=== PATIENT | female | born 1970 | race Hispanic/Latino ===

== ENCOUNTER 2019-10-02 12:54 | Emergency (ER) | payer OTHER ==
--- NOTE | 2019-10-02 15:11 | RAD REPORT ---
EXAM DESCRIPTION: RAD - Chest Single View - 10/02/2019 2:48 pm CLINICAL HISTORY: COUGH COMPARISON: None TECHNIQUE: AP portable chest image was obtained 10/02/2019 2:48 pm . FINDINGS: Lungs are clear. Heart and vasculature are normal. No measurable pleural effusion and no p neumothorax. No acute bony abnormality seen. No acute aortic findings suspected. IMPRESSION: No acute cardiopulmonary process.
[2019-10-02 15:43] LABS: Urine Blood TRACE (NEG); Urine Glucose NEGATIVE (NEG); Urine Protein TRACE (NEG); Urine pH 8.5 (5.0-7.0)
--- NOTE | 2019-10-02 16:10 | ER ---
Nurse's Notes [facility] Name: Bianka Montelongo Age: 49 yrs Sex: Female : 1970 Arrival Date: 10/02/2019 Time: 12:56 Bed 28 Private MD: Diagnosis: Urinary tract infection, site not specified;Viral Syndrome Presentation: 10/01 13:14 Chief complaint: Patient states: headache, body aches, cough for 2-3 days, also reports em abd pain N/V, was checked for covid 1 month ago, denies. Coronavirus screen: Patient reports a cough. Patient denies shortness of breath or difficulty breathing. Patient denies measured and/or subjective temperature greater than 100.4F prior to today's visit. Patient denies travel on a cruise ship or to a country the [facility] currently lists as an affected area. Patient denies contact with known and/or suspected case of COVID-19. Ebola Screen: Patient negative for fever greater than or equal to 101.5 degrees Fahrenheit, and additional compatible Ebola Virus Disease symptoms Patient denies exposure to infectious person. Patient denies travel to an Ebola-affected area in the 21 days before illness onset. No symptoms or risks identified at this time. Initial Sepsis Screen: Does the patient meet any 2 criteria? HR > 90 bpm. No. Patient's initial sepsis screen is negative. Does the patient have a suspected source of infection? Yes: Productive cough/pneumonia. Risk Assessment: Do you want to hurt yourself or someone else? Patient reports no desire to harm self or others. Onset of symptoms was September 29, 2019. 13:14 Method Of Arrival: Ambulatory em 13:14 Acuity: AMY 3 em Triage Assessment: 14:00 General: Appears in no apparent distress. uncomfortable, Behavior is calm, cooperative. ls4 Pain: Complains of pain in forehead, right femoral area, left femoral area and suprapubic area Pain currently is 5 out of 10 on a pain scale. Quality of pain is described as aching, crampy. GI: No signs and/or symptoms were reported involving the gastrointestinal system. : Reports pain in suprapubic area. Derm: No deficits noted. No signs and/or symptoms reported regarding the dermatologic system. Musculoskeletal: No deficits noted. No signs and/or symptoms reported regarding the musculoskeletal system. 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 - Social history:: Smoking status: Patient denies any tobacco usage or history of. - Family history:: not pertinent. - Hospitalizations: : No recent hospitalization is reported. Screenin:49 Abuse screen: Denies threats or abuse. Denies injuries from another. Nutritional ls4 screening: No deficits noted. Tuberculosis screening: No symptoms or risk factors identified. Fall Risk None identified. Assessment: 15:28 Reassessment: Called lab regarding urine micro sample. catechist placed me on hold. when ls4 she returned she stated that the urine was in the refrigerator because the time on the urine was 0220. After speaking to pumping supervisor, it was agreed that MT did not use time and they were able to use the sample for the urine micro. 15:49 Reassessment: Patient appears in no apparent distress at this time. Patient and/or ls4 family updated on plan of care and expected duration. Pain level reassessed. Patient is alert, oriented x 3, equal unlabored respirations, skin warm/dry/pink. 16:27 Reassessment: pt ambulated to bathroom for another urine sample. ks7 16:36 GI: Bowel sounds present X 4 quads. ks7 16:36 GI: Abdomen is tender to palpation in left lower quadrant. ks7 Vital Signs: 13:14 BP 152 / 94; Pulse 100; Resp 20; Temp 98.6(O); Pulse Ox 99% on R/A; Weight 72.57 kg; em Height 5 ft. 4 in. (162.56 cm); Pain 3/10; 15:48 BP 143 / 87; Pulse 86; Resp 16; Temp 98.4(O); Pulse Ox 99% on R/A; Pain 5/10; ls4 16:28 BP 152 / 80; Pulse 72; Resp 18; Temp 97.8(TE); Pulse Ox 100% on R/A; Pain 6/10; ks7 13:14 Body Mass Index 27.46 (72.57 kg, 162.56 cm) em ED Course: 12:56 Patient arrived in ED. ag5 13:18 Triage completed. em 13:19 Arm band placed on. EKG completed in triage. Results shown to MD. 14:14 Surjit Hu MD is Attending Physician. rn 14:15 Milvia Byrd, RN is Primary Nurse. ls4 14:28 Urine Microscopic Only Sent. pa 14:48 XRAY Chest (1 view) In Process Unspecified. EDMS 16:24 Mel Olivares, BRINDA is Primary Nurse. ks7 16:28 Patient has correct armband on for positive identification. Bed in low position. Call ks7 light in reach. Side rails up X2. 16:28 No provider procedures requiring assistance completed. Patient did not have IV access ks7 during this emergency room visit. 16:37 Urine Culture Sent. ks7 Administered Medications: No medications were administered Outcome: 16:09 Discharge ordered by MD. rn 16:35 Discharged to home ambulatory. ks7 16:35 Condition: stable 16:35 Discharge instructions given to patient, Instructed on discharge instructions, medication usage, Demonstrated understanding of instructions, medications, Prescriptions given X 1. 16:37 Patient left the ED. ks7 Signatures: Dispatcher [employer] [facility] Cedric Garcia, RN RN Surjit Hu MD MD rn [facility] Milvia Byrd, BRINDA RN [facility] [place] 5 Mel Olivares, BRINDA RN ks7
--- NOTE | 2019-10-02 16:10 | EDPHYS ---
Physician Documentation [facility] Name: Bianka Montelongo Age: 49 yrs Sex: Female : 1970 Arrival Date: 10/02/2019 Time: 12:56 Bed 28 Private MD: ED Physician Surjit Hu HPI: 10/01 15:37 This 49 yrs old Female presents to ER via Ambulatory with complaints of rn Abdominal Pain, Headache, Cough. 15:38 Reports 2-3 days of headache, cough, muscle aches, dysuria, lower abd cramping. NO rn known sick contacts. Neg for COVID 1 month ago. No sob or chest pain.. Onset: The symptoms/episode began/occurred 3 day(s) ago. Severity of symptoms: At their worst the symptoms were mild in the emergency department the symptoms are unchanged. The patient has not experienced similar symptoms in the past. The patient has not recently seen a physician. [employer]ON: 13:19 LMP N/A - Post-menopause em Historical: - Allergies: 13:19 No Known Allergies; em - PMHx: 13:19 Hypertension; season allergies; breast cancer; em - PSHx: 13:19 ovary removal, unknown which side; em - Immunization history:: Adult Immunizations up to date. - Social history:: Smoking status: Patient denies any tobacco usage or history of. - Family history:: not pertinent. - Hospitalizations: : No recent hospitalization is reported. ROS: 15:38 Constitutional: Negative for fever, chills, and weight loss, Eyes: Negative for injury, rn pain, redness, and discharge, Neck: Negative for injury, pain, and swelling, Cardiovascular: Negative for chest pain, palpitations, and edema, Respiratory: Negative for wheezing, and pleuritic chest pain, Abdomen/GI: Negative for vomiting, and constipation, MS/Extremity: Negative for injury and deformity, Skin: Negative for injury, rash, and discoloration, Neuro: Negative for numbness, tingling, and seizure. Exam: 15:38 Constitutional: This is a well developed, well nourished patient who is awake, alert, rn and in no acute distress. Ambulatory to room without difficulty. Head/Face: Normocephalic, atraumatic. Eyes: Pupils equal round and reactive to light, extra-ocular motions intact. Lids and lashes normal. Conjunctiva and sclera are non-icteric and not injected. Cornea within normal limits. Periorbital areas with no swelling, redness, or edema. Neck: Trachea midline, no thyromegaly or masses palpated, and no cervical lymphadenopathy. Supple, full range of motion without nuchal rigidity, or vertebral point tenderness. No Meningismus. Cardiovascular: Regular rate and rhythm. No pulse deficits. Respiratory: No increased work of breathing, no retractions or nasal flaring. Abdomen/GI: soft, non-tender MS/ Extremity: Pulses equal, no cyanosis. Neurovascular intact. Full, normal range of motion. Equal circumference. Neuro: Awake and alert, GCS 15, oriented to person, place, time, and situation. Cranial nerves II-XII grossly intact. Motor strength 5/5 in all extremities. Sensory grossly intact. Vital Signs: 13:14 BP 152 / 94; Pulse 100; Resp 20; Temp 98.6(O); Pulse Ox 99% on R/A; Weight 72.57 kg; em Height 5 ft. 4 in. (162.56 cm); Pain 3/10; 15:48 BP 143 / 87; Pulse 86; Resp 16; Temp 98.4(O); Pulse Ox 99% on R/A; Pain 5/10; ls4 16:28 BP 152 / 80; Pulse 72; Resp 18; Temp 97.8(TE); Pulse Ox 100% on R/A; Pain 6/10; ks7 13:14 Body Mass Index 27.46 (72.57 kg, 162.56 cm) em MDM: 14:14 Patient medically screened. rn 16:08 Differential Diagnosis COVID, viral syndrome, UTI. Data reviewed: vital signs, nurses rn notes, lab test result(s), radiologic studies, plain films, and as a result, I will discharge patient. Counseling: I had a detailed discussion with the patient and/or guardian regarding: the historical points, exam findings, and any diagnostic results supporting the discharge/admit diagnosis, lab results, radiology results, the need for outpatient follow up, to return to the emergency department if symptoms worsen or persist or if there are any questions or concerns that arise at home. Special discussion: I discussed with the patient/guardian in detail that at this point there is no indication for admission to the hospital. It is understood, however, that if the symptoms persist or worsen the patient needs to return immediately for re-evaluation. ED course: UA shows UTI, CXR clear, COVID sent, will dc home with abx, and return precautions.. 10/01 14:20 Order name: COVID-19 rn 10/01 14:20 Order name: Urine Microscopic Only rn 10/01 14:20 Order name: XRAY Chest (1 view); Complete Time: 15:27 rn 10/01 14:20 Order name: Urine Dipstick-Ancillary (obtain specimen); Complete Time: 14:28 rn 10/01 14:37 Order name: Urine Dipstick--Ancillary (enter results); Complete Time: 16:07 bd 10/01 16:36 Order name: Urine Culture EDMS Administered Medications: No medications were administered Disposition: 10/02/19 16:09 Discharged to Home. Impression: Urinary tract infection, site not specified, Viral Syndrome. - Condition is Stable. - Discharge Instructions: Urinary Tract Infection, Adult. - Prescriptions for Macrobid 100 mg Oral Capsule - take 1 capsule by ORAL route every 12 hours for 7 days; 14 capsule. - Medication Reconciliation Form, Thank You Letter, Antibiotic Education, Prescription Opioid Use form. - Follow up: Private Physician; When: As needed; Reason: Recheck today's complaints, Re-evaluation by your physician. - Problem is new. - Symptoms have improved. Addendum: 10/04/2019 18:32 Addendum: Notified patient of positive COVID-19 test result 10/04/19 at 1833. No sob. r n Return precautions explained and understood. . Signatures: Dispatcher [employer] EDCedric Alcala RN RN em Nieto, Roman, MD MD rn Songcuan, Kathleen, RN RN ks7 Corrections: (The following items were deleted from the chart) 10/01 16:37 16:09 10/02/2019 16:09 Discharged to Home. Impression: Urinary tract infection, site ks7 not specified; Viral Syndrome. Condition is Stable. Forms are Medication Reconciliation Form, Thank You Letter, Antibiotic Education, Prescription Opioid Use. Follow up: Private Physician; When: As needed; Reason: Recheck today's complaints, Re-evaluation by your physician. Problem is new. Symptoms have improved. rn
[2019-10-02 16:35] LABS: Urine Bacteria <20 /HPF (<20); Urine Culture Reflex Order REFLEXED; Urine Mucus 2+ /HPF (NONE SEEN); Urine RBC <5 /HPF (NONE SEEN)
--- OUTSIDE RECORDS SUMMARY | 2019-10-02 16:35 | XMS REPORT | Summary of Care ---
:1970 Author Organization [facility] Address [address] [place] [address] Care Team Providers Name Role Phone Pcp, Does Not Have A Primary Care Provider Reason for Visit Reason Comments Results Encounter Details Date Type Department Care Team Description 07/12/2019 Telephone ACCESS CENTER Chel Taylor FNP Results [address] [address] [address] [place] [address] 15 [phone] Allergies No Known Allergiesdocumented as of this encounter (statuses as of 07/13/2019) Medications Medication Sig Dispensed Refills Start Date End Date Status citalopram 20 mg TAKE 1 2 (ONE 0 03/13/2019 Active tablet HALF) TABLET BY MOUTH ONCE DAILY FOR 7 DAYS THEN 1 TABLET DAILY THEREAFTER Blood Pressure Use as directed 1 Kit 0 05/22/2019 Active Monitor KitIndications: Essential hypertension naproxen 500 mg Take 1 tablet by 30 tablet 0 05/27/2019 Active tabletIndications: mouth 2 (two) Acute maxillary times daily with sinusitis, meals. recurrence not specified Cetirizine 10 mg Take by mouth. 0 Active capsuleIndications: Allergic sinusitis enalapril 10 mg Take by mouth 0 Active tablet daily. maalox:diphenhydrAMI Take 10 mL by 50 mL 0 07/10/2019 05/0 04/2019 Active NE:lidocaine 2 % mouth as needed viscous (Sore throat) for 1:1:1Indications: up to 5 days. Sore throat fluticasone (FLONASE Use 2 Sprays in 10 g 0 07/10/2019 Active SENSIMIST) 27.5 each nostril daily mcg/actuation nasal for 14 days. sprayIndications: Allergic sinusitis montelukast 10 mg Take 1 tablet by 30 tablet 0 07/10/201907/14 Active tabletIndications: mouth daily for 30 Allergic sinusitis days. documented as of this encounter (statuses as of 07/13/2019) Active Problems Patient Care Coordination Note Hypertension (High Blood Pressure) Plan of Care My Hypertension Goals are the following: ? Strive for a normal blood pressure of less than 140/90 ? Cholesterol- LDL ( Bad cholesterol )- less than 130 (if I have diabetes and heart disease goal is less than 70) ? Total Cholesterol- less than 200 ? Lose weight if overweight or obese and follow the Weight Loss Care Plan ? Stop smoking and avoid second hand smo ke My Hypertension Care Plan includes the f ollowing: ? Check and record blood pressure at [facility] once a week and write results on blood pressure log ? Exercise at least 30 minutes a day 5 d ays a week. This can be in three 10 minute intervals ? Maintain a healthy weight ? Follow a DASH diet (Dietary Approaches to Stop Hypertension) o Eat a diet rich in fruits, vegetables, and low fat dairy products and low in saturated and total fat o Reduce dietary sodium to below 1500mg per day o Limit alcohol to two drinks per day fo r most men and one drink per day for most women and translational specialist weight men ? If I am a smoker, stop smoking ? Manage stress by identifying three way s to reduce stress ? [employer] ([email or web address]) is an online tool that will allow me to review lab results and portions of my health record, and to communicate with healthcare providers as needed. 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 Other sign and symptom in breast 06/28/2007 Overview: Breast pain x 1 yr. 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 Ago on SBE (Thinks mass is s grady size as last yr.) Breast cancer Migraine Hypertension documented as of this encounter (statuses as of 07/13/2019) Immunizations Name Administration Dates Next Due HEP B, Adult Dosage 03/25/2017, 02/25/2017 Influenza Virus Vaccine Quad .5 mL IM 6+ 12/23/2018, 019 MO Influenza Virus Vaccine Quad IM 3+ YRS 01/06/2017, 6, 03/01/2015 Tdap 04/25/2018 documented as of this encounter 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 Tobacco Use Types Packs/Day Years Used Date Never Smoker Smokeless Tobacco: Never Used Alcohol Use Drinks/Week oz/Week Comments No Sex Assigned at Date Recorded Not on file Job Start Date Occupation Industry Not on file Not on file Not on file Travel History Travel Start Travel End No recent travel history available. COVID-19 Exposure Response Date Recorded In the last month, have you been in contact with No / Unsure 07/10/2019 1:14 PM CDT someone who was confirmed or suspected to have Coronavirus / COVID-19? documented as of this encounter Last Filed Vital Signs Not on filedocumented in this encounter Plan of Treatment Date Type Specialty Care Team Description 08/23/2019 Office Visit Orthopedic Surgery Yo Whitman MD [address] [place] [address] 10/02/2019 Appointment Radiology Bianka Palomino , US[employer] [address] [address] Health Maintenance Due Date Last Done Comments Breast Cancer Screening 02/24/2018 02/24/2017 (Previously (MAMMOGRAM) completed), 04/01/2016 (Previously completed) PNEUMOCOCCAL 0-64 YEARS 02/08/2020 Postpone d from COMBINED SERIES (1 of 3 - 1975 (Refused) PCV13) Zoster Recombinant Vaccine 05/02/2020 Postp oned from ([employer]) (1 of 2) 2019 ( Insurance / Financial) PAP SMEAR 10/14/2021 10/14/2018, 01/06/2017 (Declined), 06/07/2013, Additional history exists COLONOSCOPY 12/02/2023 12/01/2013 DTaP,Tdap,and Td Vaccines 04/25/2028 04/25/2018 (2 - Td) INFLUENZA VACCINE Completed 12/23/2018, 04/25/2018, 01/06/2017, Additional history exists documented as of this encounter Results Not on filedocumented in this encounter Insurance Payer Benefit Plan / Group Subscriber ID Effective Dates Phone Address Type CEASAR MCDONOUGH II [id number] 2019-Present HMO /PPO/POS documented as of this encounter
--- OUTSIDE RECORDS SUMMARY | 2019-10-02 16:35 | XMS REPORT | Summary of Care ---
:1970 Author Organization [facility] Address [address] [place] [id number] Care Team Providers Name Role Phone Pcp, Does Not Have A Primary Care Provider Reason for Visit Reason Comments Sore Throat All symptoms started 4 days ago. Pt states her throat onl;y hurts on her left side. Ear Pain Fatigue Headache Encounter Details Date Type Department Care Team Description 07/10/2019 Urgent Care [facility] Radha Malone MD [facility] [address] [place] [address] Sore throat (Primary Dx); [place] [id number], Acute Care Clinic Allergic sinusitis [address] [place] [address] [phone] Allergies No Known Allergiesdocumented as of this encounter (statuses as of 07/10/2019) Medications Medication Sig Dispensed Refills Start Date End Date Status citalopram 20 mg TAKE 1 2 (ONE 0 03/13/2019 Active tablet HALF) TABLET BY MOUTH ONCE DAILY FOR 7 DAYS THEN 1 TABLET DAILY THEREAFTER Blood Pressure Use as directed 1 Kit 0 05/22/2019 Active Monitor KitIndications: Essential hypertension naproxen 500 mg Take 1 tablet 30 tablet 0 05/27/2019 Active tabletIndications by mouth 2 : Acute maxillary (two) times sinusitis, daily with recurrence not meals. specified Cetirizine 10 mg Take by mouth. 0 Active capsuleIndication s: Allergic sinusitis enalapril 10 mg Take by mouth 0 Active tablet daily. maalox:diphenhydr Take 10 mL by 50 mL 0 07/10/2019 Active AMINE:lidocaine 2 mouth as needed 0 % viscous (Sore throat) 1:1:1Indications: for up to 5 Sore throat days. fluticasone Use 2 Sprays in 10 g 0 07/10/2019 A ctive (FLONASE each nostril 0 SENSIMIST) 27.5 daily for 14 mcg/actuation days. nasal sprayIndications: Allergic sinusitis montelukast 10 mg Take 1 tablet 30 tablet 0 07/10/2019 Active tabletIndications by mouth daily 0 : Allergic for 30 days. sinusitis montelukast 10 mg Take 10 mg by 0 04/08/2019 02 Discontinued tablet mouth daily. 0 (Reorde r) azithromycin 250 Take 1 tablet 1 Package 0 05/27/2019 07/10/19 2 Discontinued mg by mouth daily. 0 (The rapy tabletIndications Take 500 mg day completed) : Acute maxillary 1, then 250 mg sinusitis, days 2 to 5. recurrence not specified brompheniramine-p Take 10 mL by 118 mL 0 05/27/2019 Discontinued seudoephedrine-DM mouth 4 (four) 0 (Therapy (BROMFED DM) times daily as co mpleted) 2-30-10 mg/5 mL needed for syrupIndications: Congestion/Waldemar Acute maxillary rgies. sinusitis, recurrence not specified documented as of this encounter (statuses as of 07/10/2019) Active Problems Patient Care Coordination Note Hypertension [...] ? Check and record blood pressure at [facility] once a week and write results on [...] drink per day for most women and compounder weight men ? If I am a smoker, stop smoking ? Manage stress by identifying three way s to reduce stress ? [employer] ([email or web address]) is an online tool that will allow me to review lab results and portions of my health record, and to communicate with healthcare providers as needed. If I do not have a [employer] account, I will discuss this wi th [...] as of this encounter (statuses as of 07/10/2019) Immunizations Name Administration Dates Next Due HEP [...] of this encounter Last Filed Vital Signs Vital Sign Reading Time Taken Comments Blood Pressure 127/89 07/10/2019 1:19 PM CDT Pulse 68 07/10/2019 1:19 PM CDT Temperature 36.7 C (98.1 F) 07/10/2019 1:19 PM CDT Respiratory Rate 18 07/10/2019 1:19 PM CDT Oxygen Saturation 98% 07/10/2019 1:19 PM CDT Inhaled Oxygen Concentration - - Weight 71.7 kg (158 lb) 07/10/2019 1:19 PM CDT Height 149.9 cm (4' 11") 07/10/2019 1:19 PM CDT Body Mass Index 31.91 07/10/2019 1:19 PM CDT documented in this encounter Patient Instructions Patient InstructionsKetty Mendez FNP - 07/10/2019 2:00 PM CDT Patient Education Cuidados personales para el dolor de garganta El dolor de garganta aparece por muchas razones, por ejemplo, resfriados, alergias, humo del cigarrillo, contaminacin del aire e infecciones causadas por virus o bacterias. En cualquier henry, la garganta se enrojece y duele. El objetivo del cuidado personal es reducir las molestias y permitir que lagarganta se cure. Mantenga hmeda melgar garganta y alivie melgar dolor Estos son algunos consejos: Pruebe bebiendo un sorbo de agua apenas se despierte. Mantenga melgar garganta hmeda bebiendo seis o ms vasos de lquidos transparentes por da. Utilice un humidificador de aire fro en melgar dormitorio sharona la noche. Evite exponerse al humo de cigarrillos. Controle el ndice de la calidad del aire si la contaminacin del aire le provoca dolor de garganta. Intente limitar el tiempo al aire sandy los hyde con altos niveles de contaminacin. Chupe pastillas para la garganta o la tos, caramelos duros, trozos de hielo o barras de jugo de frutas congelado. Consuma las versiones sin azcar si melgar dieta o alguna afeccin as lo requiere. Hgase grgaras para aliviar la irritacin Hacer grgaras cada hora o dos horas puede aliviar la irritacin. Pruebe con alguna de estas soluciones: 1/4 de cucharadita de danny en 1/2 taza de agua tibia Un gargarismo anestsico de venta sin receta Use medicamentos para mayor alivio Los medicamentos sin receta pueden reducir los sntomas de irritacin de garganta. Pregunte a melgar farmacutico si tiene dudas acerca del tipo de medicamento que debe usar. Para prevenir posibles interacciones entre los medicamentos, hgale saber al farmacutico qu medicamentos andrew. Para reducirlos sntomas: Alivie el dolor con rociadores anestsicos. La aspirina o un sustituto tambin puede ser til.Recuerde no jesús nunca aspirina a alguien que tenga menos de 18aos. Tampoco tome aspirina si ya est tomando un medicamento anticoagulante. Para el dolor causado por alergias, pruebe alfredito medicamentos antihistamnicos para bloquear la reaccin alrgica. A menos que el dolor de garganta sea causado por jhon infeccin bacteriana, los antibiticos no le ayudarn. Prevenga el dolor de garganta Los siguientes son consejos de prevencin: Deje de fumar o reduzca el contacto con el humo de segunda mano. El humo irrita el delicado revestimiento de la garganta. Limite el contacto con mascotas y sustancias que causan alergias, leda el polen y el moho. Cuando est cerca de jhon persona que tenga dolor de garganta o est resfriada, lvese las markus con frecuencia para evitar la propagacin de virus o bacterias. Limite el tiempo al aire sandy cuando haya jay contaminacin en el aire. No esfuerce crystal cuerdas vocales. Cundo debe llamar a melgar proveedor de atencin mdica Llame a melgar proveedor de atencin mdica si tiene alguno de los siguientes sntomas: fiebre de 100.4F (38.0C) o superior, o segn le indique el proveedor; Puntos blancos en la garganta Dificultad grave para tragar erupcin en la piel; Exposicin reciente a jhon persona infectada con la bacteria estreptococo. Ronquera excesiva e inflamacin de los ganglios en el xander o en la mandbula Llame al 911 Llame al 911 ante cualquiera de los siguientes sntomas: Dificultad para respirar o recuperar el aliento Babeo y problemas para tragar sibilancias; Incapacidad para hablar Se siente mareado o dbil sensacin de muerte. [id number] [employer] [place] [address]. Todos los derechos reservados. Esta informacin no pretende sustituir la atencin mdica profesional. Slo melgar mdico puede diagnosticar y tratar un problema de tracy. Patient Education Alergia estacional La alergia estacional tambin se conoce leda fiebre del heno. La reaccin alrgica puede presentarse cuando jhon persona se expone al polen que proviene del csped, la hierba, los rboles y los arbustos. Lala tipo de alergia sucede sharona la primavera, el verano o el otoo, cuando el polen entraen contacto con la membrana que recubre la nariz, con los ojos, los prpados, los senos nasales, lagarganta y los pulmones. Hace que los tejidos liberen histamina y otras sustancias qumicas. Esta sustancia provoca picazn e hinchazn. Y eso puede provocar jhon secrecin acuosa de los ojos o la nariz. Tambin puede ocasionar sntomas graves de estornudos, congestin nasal, goteo de la nariz, picazn en los ojos, la nariz, la garganta y la boca, sensacin de que la garganta est spera y tos seca o silbidos al respirar. Cuidados en el hogar Se pueden aliviar los sntomas de la alergia estacional tomando las siguientes medidas: Evite o reduzca el contacto con los alrgenos siempre que sea posible. ? Permanezca adentro en los hyde ventosos de la poca del polen. ? Mantenga las ventanas y las taniya cerradas. Para airear, use el aire acondicionado en melgar casa y automvil, ya que lala aparato filtra el aire. ? Cambie los filtros del aire acondicionado con frecuencia. ? Dchese, lvese el beatriz y cmbiese de ropa despus de estar afuera. ? Colquese jhon mscara con [id number] de clasificacin NIOSH cuando trabaje afuera. Antes de salir, use los medicamentos para la alergia segn le haya indicado melgar proveedor de atencin mdica. Los descongestivos en pastillas y en aerosol reducen la hinchazn de los tejidos y la secrecinacuosa. Si usa un medicamento en aerosol con demasiada frecuencia, los sntomas pueden empeorar. Nolos utilice con mayor frecuencia que la recomendada.En ocasiones puede tener un efecto de rebote (los sntomas empeoran) al dejar de usarlos. Hable con melgar proveedor de atencin mdica o farmacutico sobre estos medicamentos antes de usarlos, especialmente si tiene presin arterial mendoza o problemas del corazn. Los antihistamnicos bloquean la liberacin de histamina sharona la reaccin alrgica. Son ms eficaces si se usan antes de que aparezcan los sntomas. A menos que le hayan indicado un antihistamnico de venta con receta, puede usar antihistamnicos de venta sandy que no causen somnolencia. Pdale recomendaciones al farmacutico o a melgar proveedor de atencin mdica. Tambin es posible que le receten algn aerosol nasal con esteroides o esteroides por va oral(boca) para los sntomas ms graves. Estos ayudan a reducir la inflamacin local que puede empeorar la reaccin alrgica. Si tiene asma, la poca del polen puede hacer que los sntomas del asma empeoren. Sharona lala perodo, es importante que use los medicamentos para el asma segn le hayan indicado para evitar o tratar un ataque de asma. Algunas personas con asma presentan un agravamiento de los sntomas al usar antihistamnicos. Se debe al efecto de sequedad que estos medicamentos producen en los pulmones. Si observa eso, deje de usar antihistamnicos, payton ms lquidos que lo habitual e informe de esto a melgar proveedor de atencin mdica. Si tiene secrecin o congestin de los senos paranasales, un enjuague nasal salino puede aliviar los sntomas. El enjuague reduce la hinchazn y elimina el exceso de mucosidad. Permite que los senos paranasales drenen. Encontrar kits ya listos para hacerse los enjuagues en la mayora de las farmacias. Traen paquetes de danny premezclada y un dispositivo de irrigacin. Seguimiento Programe jhon visita de control con melgar proveedor de atencin mdica o segn le recomienden. Si lo derivaron a un especialista, patricia jhon jeff rpidamente. Las pruebas de las alergias permiten descubrir de qu cosas debe alejarse y en qu pocas del ao debe usar los medicamentos para la alergia.Adems, las vacunas para la alergia (inmunoterapia para la alergia) ayudan a aliviar los sntomas d e la alergia estacional, o incluso prevenirlos. Un mdico especialista en tratar las alergias (alergista) puede darle estas vacunas. Estas tambin pueden disminuir la cantidad de medicamento que necesita sharona la temporada de la alergia. Hable con melgar proveedor de atencin mdica para morena si las vacunas para la alergia podran ayudarlo. Cundo debe buscar atencin mdica Llame a melgar proveedor de atencin mdica si se presenta cualquiera de los siguientes sntomas: Dolor en la main, los odos o los senos paranasales, o supuracin de lquido de color de la nariz. Marta de dominga. Tiene asma y los sntomas de asma no estn respondiendo a las dosis habituales de melgar medicamento. Tos con esputo (mucosidad) de color. Fiebrede 100.4F (38C) o superior, o segn le haya indicado el proveedor de atencin mdica. Cundo llamar al 911 Llame al 911en henry de ocurrir lo siguiente: Problemas para respirar o tragar, silbidos al respirar Voz ronca o problemas para hablar o babeo Confusin Jay somnolencia o problemas para despertarse Desmayo o prdida del conocimiento Frecuencia cardaca acelerada o pulso dbil Presin arterial baja Sensacin de muerte Nuseas, vmitos, dolor abdominal, diarrea Vmito con araseli o grandes cantidades de araseli en las heces Convulsiones Piel fra, hmeda o plida (azulada) [phone] [employer] [place] [id number]. Todos los derechos reservados. Esta informacin no pretende sustituir la atencin mdica profesional. Slo melgar mdico puede diagnosticar y tratar un problema de tracy. Patient Education Cefalea en racimos La cefalea en racimos es diferente de un dolor de dominga tensional o por migraa. Tambin es muchomenos comn. Jhon cefalea en racimos comienza de repente, sin ningn aviso. El dolor puede volversemuy baldemar en minutos. Lala dolor de dominga suele ser breve, Puede durar solo 15minutos. Sin embargo, tambin es posible que siga por varias horas. El dolor se concentra alrededor de un eva. Puede que vince eva le llore, tambin que el prpado se caiga. El eva puede enrojecerse e inflamarse. Tambin puede que sienta la nariz congestionada o que le gotea del lado afectado. Asimismo, es posible que tenga varios marta de dominga en un mismo perodo de 24horas. Pueden volver a la misma hora del da sharona el perodo de racimo. Jhon cefalea en racimos se va bourgeois repentinamente leda apareci. Suele dejarlo exhausto por algn tiempo despus. Las cefaleas en racimos ocurren con frecuencia por la noche sharona ciertas pocas del ao que sonnicas para usted. Lala tipo de dolor de dominga puede aparecer en el lapso de unas pocas semanas hasta varios meses. Luego, puede que los marta de dominga no regresen en meses o aos. Los posibles desencadenantes incluyen el alcohol y el tabaquismo. Incluso jhon lalo bebida alcohlica puede desencadenar un dolor de dominga sharona el perodo de racimo. Otro posible desencadenante esla interrupcin del sueo. Los medicamentos leda la nitroglicerina tambin pueden causar jhon cefalea en racimos. La cefalea en racimos afecta ms a los hombres que a las mujeres. El tratamiento vara. En los marta de dominga que capps solo 15minutos, los medicamentos de venta sandy no son de ayuda. Eso es porque tales medicamentos tardan entre 20 y 30 minutos en comenzar a hacer efecto. Los medicamentos recetados que se administran por inyeccin o leda pulverizador nasal pueden detener un dolor de dominga. [place] se conoce leda tratamiento abortivo. Los medicamentos preventivos incluyen medicamentos esteroides y anticonvulsivos. Estos pueden ayudara reducir la cantidad de marta de dominga que tiene sharona un perodo de racimo. La terapia de oxgeno de dosis mendoza o un estimulador de los nervios pueden reducir la duracin de cada ataque y hacerlo menos grave. Si tiene cefalea en racimos con frecuencia o tiene sntomas graves, melgar proveedor de atencin mdica puede mencionarle la posibilidad de jhon ciruga. La ciruga, por ejemplo la estimulacin cerebral profunda, puede detener el nervio que enva las rodolfo de dolor.De lala tipode tratamiento suele encargarse un especialista (neurlogo o neurocirujano). Son tratamientos consid erados experimentales. Cuidados en el hogar Siga estos consejos para cuidarse en el hogar: No conduzca hasta melgar casa si le dieron medicamentos analgsicos para melgar dolor de dominga. Coordine para que otra persona lo lleve a casa. Cuando llegue a casa, intente dormir. Se sentir mucho mejor cuando despierte. Si melgar proveedor de atencin mdica le nico medicamentos preventivos, selos segn las indicaciones. Si le recetaron medicamentos abortivos, llvelos con usted para usarlos al primer indicio de dolor de dominga. Duerma en horarios regulares. Evite alfredito siestas por la tarde shaorna un perodo de racimo. Si tiene apnea del sueo, hable con melgar proveedor acerca de obtener tratamiento para tiaog afeccin. La apnea del sueo interfiere con los patrones del sueo. Aljese de los vapores de gasolina y de pinturas al claudia. Debe conocer otros desencadenantes que debera evitar. Evite el cigarrillo y el alcohol sharona un episodio de cefalea en racimos. Tenga cuidado si viaja a grandes altitudes, ya que hay menos oxgeno. Eso puede desencadenarle un dolor de dominga. Use anteojos de demond para evitar el resplandor y las luces brillantes. Lleve un diario sobre crystal marta de dominga. Anote la hora y la fecha de cada dolor de dominga. Describa el tipo de dolor. Anote cun baldemar es, dnde lo siente y cunto dura. Anote filament tester respondi melgar cuerpo a los medicamentos que haya usado para controlar el dolor. Observe los posibles desencadenantes: Fue algo que comi? Algo que hizo drake antes del ataque? Comparta esta informacin con melgar proveedor para que pueda determinar el mejor plan de tratamiento para usted. Hable con un consejero o un terapeuta, o nase a un gi de apoyo. Eso puede ayudarlo a sobrellevar los efectos de la cefalea en racimos sobre melgar jose. Visitas de control Asista a los controles con melgar proveedor de atencin mdica o patricia lo que le hayan indicado. Si le whitman hecho jhon tomografa computarizada o jhon resonancia magntica, ser evaluada por un especialista. Le informarn de los nuevos hallazgos que puedan afectar melgar atencin mdica. Cundo debe buscar atencin mdica Llame a melgar proveedor de atencin mdica de inmediato ante cualquiera de las siguientes situaciones: Fiebre sin motivo aparente que supera los 100.0F (37.8C) o segn lo que le haya indicadosu proveedor Xander rgido o sarpullido Marta de dominga provocados por la actividad fsica Necesita usar ms medicamentos calmantes que lo habitual Cundo llamar al 911 Llame al 911 u obtenga atencin mdica de inmediato ante cualquiera de los siguientes sntomas: Dolor de dominga muy baldemar y repentino, peor que los que haya tenido antes Dolor de dominga con desmayo Debilidad en un brazo o jhon pierna, o en un lado de la main Problemas para hablar Cambios en la vista [phone] [employer] [address] [place] [address], [place] [address]. Todos los derechos reservados. Esta informacin no pretende sustituir la atencin mdica profesional. Slo melgar mdico puede diagnosticar y tratar un problema de tracy. documented in this encounter Progress Notes Ketty Mendez FNP - 07/10/2019 2:00 PM CDT Cc: Chief Complaint Patient presents with Sore Throat All symptoms started 4 days ago. Pt states her throat onl;y hurts on her left side. Ear Pain Fatigue Headache Bianka Montelongo is a 49 year old female. Patient is hx of seasonal allergies, takes zyrtec PRN, here with URI symptoms as detailed below. Shewas also prescribed singulair but not taking it yet. 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 URI Presenting symptoms: ear pain and sore throat Presenting symptoms: no cough Ear pain: Location: Bilateral Severity: Moderate Onset quality: Gradual Duration: 4 days Timing: Constant Progression: Worsening Chronicity: New Sore throat: Severity: Mild Onset quality: Gradual Duration: 4 days Timing: Constant Progression: Unchanged Severity: Mild Onset quality: Gradual Duration: 4 days Timing: Constant Progression: Unchanged Chronicity: New Relieved by: Nothing Worsened by: Nothing Ineffective treatments: OTC medications Associated symptoms: headaches Associated symptoms: no myalgias, no sinus pain, no swollen glands and no wheezing Headaches: Severity: Mild Onset quality: Gradual Timing: Intermittent Progression: Unchanged Chronicity: New Risk factors: no sick contacts Allergies Bianka has No Known Allergies. Medications Outpatient Medications Prior to Visit Medication Sig Dispense Refill Cetirizine 10 mg capsule Take by mouth. enalapril 10 mg tablet Take by mouth daily. azithromycin 250 mg tablet Take 1 tablet by mouth daily. Take 500 mg day 1, then 250 mg days 2 to 5. 1 Package 0 zqjorszdyzpyowr-kqqzmymioiokkbk-EF (BROMFED DM) 2-30-10 mg/5 mL syrup Take 10 mL by mouth 4 (four) times daily as needed for Congestion/Allergies. 118 mL 0 naproxen 500 mg tablet Take 1 tablet by mouth 2 (two) times daily with meals. 30 tablet 0 Blood Pressure Monitor Kit Use as directed 1 Kit 0 montelukast 10 mg tablet Take 10 mg by mouth daily. citalopram 20 mg tablet TAKE 1 2 (ONE HALF) TABLET BY MOUTH ONCE DAILY FOR 7 DAYS THEN 1 TABLET DAILY THEREAFTER No facility-administered medications prior to visit. 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 Employer: UNEMPLOYED Social Needs Financial resource strain: Not on file Food insecurity: Worry: Not on file Inability: Not on file Transportation needs: Medical: Not on file Non-medical: Not on file Tobacco Use Smoking status: Never Smoker Smokeless tobacco: Never Used Substance and Sexual Activity Alcohol use: No Drug use: No Sexual activity: Yes Partners: Male control/protection: Surgical Lifestyle Physical activity: Days per week: Not on file Minutes per session: Not on file Stress: Not on file Relationships Social connections: Talks on phone: Not on file Gets together: Not on file Attends jehovah's witness service: Not on file Active member of club or organization: Not on file Attends meetings of clubs or organizations: Not on file Relationship status: Not on file Intimate partner violence: Fear of current or ex partner: Not on file Emotionally abused: Not on file Physically abused: Not on file Forced sexual activity: Not on file Other Topics Concern Not on file 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; 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; no guns at the house Family History Problem Relation Age of Onset No Significant Medical Problems Mother No Significant Medical Problems Father No Significant Medical Problems Sister No Significant Medical Problems Brother No Significant Medical Problems Maternal Grandmother No Significant Medical Problems Brother No Significant Medical Problems Sister No Significant Medical Problems Sister No Significant Medical Problems Sister No Significant Medical Problems Brother No Significant Medical Problems Brother No Significant Medical Problems Brother No Significant Medical Problems Brother No Significant Medical Problems Brother Review of Systems Constitutional: Negative. HENT: Positive for ear pain and sore throat. Negative for sinus pain, trouble swallowing and voice change. Eyes: Negative. Respiratory: Negative. Negative for apnea, cough, choking, chest tightness, shortness of breath andwheezing. Cardiovascular: Negative. Negative for chest pain, palpitations and leg swelling. Gastrointestinal: Negative. Musculoskeletal: Negative for myalgias. Skin: Negative. Neurological: Positive for headaches. Endocrine: Endocrine negative Vital Signs BP 127/89 | Pulse 68 | Temp 36.7 C (98.1 F) | Resp 18 | Ht 4' 11" (1.499 m) | Wt 158 lb (71.7 kg) | SpO2 98% | BMI 31.91 kg/m Physical Exam Constitutional: She is oriented to person, place, and time. She appears well- developed and well-nourished. HENT: Head: Normocephalic. Right Ear: Hearing, tympanic membrane, external ear and ear canal normal. Left Ear: Hearing, tympanic membrane, external ear and ear canal normal. Nose: Rhinorrhea present. No mucosal edema. Right sinus exhibits no maxillary sinus tenderness and no frontal sinus tenderness. Left sinus exhibits no maxillary sinus tenderness and no frontal sinus tenderness. Mouth/Throat: Uvula is midline, oropharynx is clear and moist and mucous membranes are normal. No oropharyngeal exudate, posterior oropharyngeal edema or posterior oropharyngeal erythema. No tonsillar exudate. Neck: Normal range of motion. Neck supple. Cardiovascular: Normal rate, regular rhythm, normal heart sounds and intact distal pulses. Exam reveals no gallop and no friction rub. No murmur heard. Pulmonary/Chest: Effort normal and breath sounds normal. No respiratory distress. She has no wheezes. She has no rales. She exhibits no tenderness. Abdominal: Soft. Bowel sounds are normal. She exhibits no distension. There is no tenderness. Lymphadenopathy: Head (right side): No submental, no submandibular, no tonsillar, no preauricular and no posterior auricular adenopathy present. Head (left side): No submental, no submandibular, no tonsillar, no preauricular and no posterior auricular adenopathy present. She has no cervical adenopathy. Neurological: She is alert and oriented to person, place, and time. Skin: Skin is warm and dry. Capillary refill takes less than 2 seconds. No rash noted. No erythema. No pallor. Psychiatric: She has a normal mood and affect. Nursing note and vitals reviewed. Assessment/Plan 1. Sore throat: will get covid test. Magic mouth wash given for symptoms relief. Dont smoke, and avoid secondhand smoke. Try lozenges OTC as directed Drink warm liquids to soothe the throat and help thin mucus. Avoid alcohol, spicy foods, and acidic drinks such as orange juice. These can irritate the throat. Gargle with warm saltwater (1 teaspoon of salt to 8 ounces of warm water). Use a humidifier to keep air moist and relieve throat dryness. Try dooj-vlp-frfjdda pain relievers such as acetaminophen or ibuprofen. Use as directed, and dont exceed the recommended dose. In the meantime, quarantine in place, treat symptoms with OTC meds, Tylenol as needed but no NSAIDs.Stay in quarantine until symptoms subsides, plus 3 days afterwards or until you hear otherwise. Follow up with your PCP as needed, and if with worsening of symptoms, any respiratory distress, go to theER. 2. Allergic sinusitis: Flonase given , singulair reordered. Stay away from or limit your time near the allergen cautious with OTC decongestant due to risk of rebound and considering HTN Antihistamines block the release of histamine during the allergic response. They work better whentaken before symptoms develop. Unless a prescription antihistamine was prescribed, you can take qukk-kto-kquffft antihistamines that do not cause drowsiness Steroid nasal sprays or oral steroids may also be prescribed for more severe symptoms. These helpto reduce the local inflammation that can add to the allergic response. With asthma, pollen season may make your asthma symptoms worse. It is important that you use yourasthma medicines as directed during this time to prevent or treat attacks. Some persons with asthma have asthma symptoms that get worse when they take antihistamines. This is due to the drying effect on the lungs. If you notice this, stop the antihistamines, drink extra fluids and notify your doctor. If you have sinus congestion or drainage, a saline nasal rinse may give relief. A saline nasal rinse lessens the swelling and clears excess mucus. This allows sinuses to drain. Prepackaged kits are sold at most drug stores. These contain pre-mixed salt packets and an irrigation device. If covid test if negative, and symptoms persists in 7-10 days please f/u. Plan of care, desired health behaviors, goals, and medication discussed with patient. Education resources provided and reviewed with AVS. Patient/guardian/family verbalized understanding & agrees to plan of care. This visit did not involve counseling and coordination that comprised more than 50% of the visit time. If applicable, the [place] [employer] database was accessed to review any controlled substance prescription claims data. The [employer] prescription claims data in [employer] was reviewed to assess patient compliance with the medication treatment plan. Sneha Veras MA - 07/10/2019 2:00 PM CDT Bianka Montelongo is a 49 year old female. Covid test run. Chief Complaint Patient presents with Sore Throat All symptoms started 4 days ago. Pt states her throat onl;y hurts on her left side. Ear Pain Fatigue Headache Vitals: 07/10/19 1319 BP: 127/89 Pulse: 68 Resp: 18 Temp: 36.7 C (98.1 F) SpO2: 98% Weight: 158 lb (71.7 kg) Height: 4' 11" (1.499 m) [facility] [address] [place] [address] All Vitals taken, allergies and all medications reviewed, fall risk assessed. Pain level 4. Sneha Shearer MA documented in this encounter Plan of Treatment Date Type Specialty Care Team Description 07/12/2019 Telemedicine Visit Orthopedic Surgery Itz Whitman MD [address] [place], [place] [id number] 07/12/2019 Appointment Radiology Bianka Palomino FNP [address] [facility] [address] [place], [place] [address] 10/02/2019 Appointment Radiology Bianka Palomino FNP [address] [place] [address] [phone] Name Type Priority Associated Diagnoses Date/Ti me CORONAVIRUS COVID-19 LAB Routine Sore throat 020 1:17 PM CDT TESTING Health Maintenance Due Date Last Done Comments [...] Results Not on filedocumented in this encounter Visit Diagnoses Diagnosis Sore throat - Primary Acute pharyngitis Allergic sinusitis Allergic rhinitis, cause unspecified documented in this encounter documented as of this encounter
--- OUTSIDE RECORDS SUMMARY | 2019-10-02 16:35 | XMS REPORT | Summary of Care ---
:1970 Author Organization [facility] Address [address] [place] [id number] Care Team Providers Name Role Phone Pcp, Does Not Have A Primary Care Provider Reason for Visit Reason Comments Hand Pain (Routine) Status Reason Specialty Diagnoses / Referred By Referred To Procedures Contact Contact Closed Orthopedic Surgery Diagnoses Pain in both hands Bilateral wrist pain Palomino, Procedures CONSULT/REFERRAL ORTHOPAEDIC SURGERY Bianka MAINFRAME PROGRAMMER ANALYST [address] [place] [address] Encounter Details Date Type Department Care Team Description 07/12/2019 Telemedicine Visit [facility] Itz Whitman Hand a rthritis Orthopaedic Surgery- MD (Primary Dx) [address] [place] [phone] Allergies No Known Allergiesdocumented as of this encounter (statuses as of 07/12/2019) Medications Medication Sig Dispensed Refills Start Date [...] 10 mL by 50 mL 0 07/10/2019 050 04/2019 Active NE:lidocaine 2 % mouth as [...] as of this encounter (statuses as of 07/12/2019) Active Problems Patient Care Coordination Note Hypertension [...] My Hypertension Care Plan includes the f chio: ? 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 If I am a smoker, stop smoking ? Manage stress by identifying three way s to reduce stress ? [employer] ([email or web address]/[employer]) is an online tool that will allow me to review lab results and portions of my health record, and to communicate with healthcare providers as needed. If I do not have a [employer] account, I will discuss this wi th [...] as of this encounter (statuses as of 07/12/2019) Immunizations Name Administration Dates Next Due HEP [...] Signs Not on filedocumented in this encounter Progress Notes Edith Dodson MD - 07/12/2019 1:00 PM CDT Verbal consent obtained from patient for telehealth services provided below. Service was provided by telephone call. A total of 15 minutes was spent on the call with the patient. I was in clinic andthe patient was located at home. Others participating in the call included Nona: sandstone inspector repairer. And Dr. Whitman.. Ortho Hand Clinic Note 07/12/2019 15:20 Chief complaint: Bilateral hand History of Present Illness Bianka Montelongo is a 49 year old right handed female, belarusian speaking, telehealth visit completed with the assistance of language services, with complaint of bilateral hand pain. Patient describes her pain as achy pain located primarily at her bilateral hand joints. 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 She also awakens with significant stiffness in the morning. She has received steroids po in the past which seem to improve her symptoms. She also admits to carpaltunnel syndrome years ago that resolved after receiving a steroid injection. She has not undergone workup for possible RA. Past Medical History: Diagnosis Date Anxiety Breast cancer 2007 On tamoxifen Fatty liver 04/28/2013 Hypertension Migraine Past Surgical History: Procedure Laterality Date BREAST LUMPECTOMY left breast-total of 4 surgeries COLONOSCOPY N/A 12/01/2013 Surgeon: Macario Francis DO; Location: [facility] LOCATION OOPHORECTOMY Left 1995 Medications: Current Outpatient Medications: Cetirizine 10 mg capsule, Take by mouth., Disp: , Rfl: enalapril 10 mg tablet, Take by mouth daily., Disp: , Rfl: fluticasone (FLONASE SENSIMIST) 27.5 mcg/actuation nasal spray, Use 2 Sprays in each nostril daily for 14 days., Disp: 10 g, Rfl: 0 maalox:diphenhydrAMINE:lidocaine 2 % viscous 1:1:1, Take 10 mL by mouth as needed (Sore throat)for up to 5 days., Disp: 50 mL, Rfl: 0 montelukast 10 mg tablet, Take 1 tablet by mouth daily for 30 days., Disp: 30 tablet, Rfl: 0 naproxen 500 mg tablet, Take 1 tablet by mouth 2 (two) times daily with meals., Disp: 30 tablet, Rfl: 0 Blood Pressure Monitor Kit, Use as directed, Disp: 1 Kit, Rfl: 0 citalopram 20 mg tablet, TAKE 1 2 (ONE HALF) TABLET BY MOUTH ONCE DAILY FOR 7 DAYS THEN 1 TABLET DAILY THEREAFTER, Disp: , Rfl: Allergies: No Known Allergies 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: 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 Socioeconomic History Marital status: Single [...] file Gets together: Not on file Attends adventism service: Not on file Active member of [...] Concern Not on file 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 Physical Exam: Constitutional: Alert and in no distress Resp: Breathing comfortably Neuro: answers questions appropriately Psych:affect normal Imaging: No final results containing an impression from the past 2 days were found. ASSESSMENT: Bianka Montelongo is a 49 year old female with bilateral hand pain in her joints concerning for osteoarthritis vs rheumatoid arthritis. PLAN: Educated the patient on condition present. All questions have been answered. We have talked about all the treatment options and have agreed upon: - Labs: CBC, ESR, RF - Activity modification to minimize pain - Ice/ NSAIDs prn for pain - Heat therapy prn for muscular pain before exercise and when first waking in the morning to relievestiffness - Follow up in 6 weeks (after lab work) with xrays of bilateral hands. - Condition and plans were discussed with patient, who expressed understanding and is agreeable to the plan. - All questions were answered, concerns addressed; risks and benefits were discussed. - Patient was instructed to schedule earlier appointment if symptoms worsen. Edith Dodson MD Orthopaedic Surgery PGY-3 documented in this encounter Plan of Treatment Date Type Specialty Care Team Description 10/02/2019 Appointment Radiology PalominoBianka fischer , MAINFRAME PROGRAMMER ANALYST [address] [place] [address] [phone] Name Type Priority Associated Diagnoses Order S chedule CBC WITH DIFF LAB Routine Hand arthritis Expected: , Expires: 07/11/2020 SEDIMENTATION RATE LAB Routine Hand arthritis Expecte d: 07/12/2019, Expires: 07/11/2020 RHEUMATOID FACTOR LAB Routine Hand arthritis Expected : 07/12/2019, Expires: 07/11/2020 Health Maintenance Due Date Last Done Comments [...] filedocumented in this encounter Visit Diagnoses Diagnosis Hand arthritis - Primary Unspecified arthropathy, hand documented in this encounter documented as of this encounter
--- OUTSIDE RECORDS SUMMARY | 2019-10-02 16:35 | XMS REPORT | Continuity of Care Document ---
:1970 Author Organization [facility] t Address [address] [place] [address] Care Team Providers Name Role Phone Kori Hameed MD Attending Clinician Mookie JARAMILLO, H Attending Clinician Po, [facility] Attending Clinician Unavailable Sandor JARAMILLO, Y Attending Clinician Problems This patient has no known problems. Allergies, Adverse Reactions, Alerts This patient has no known allergies or adverse reactions. Medications This patient has no known medications. Procedures This patient has no known procedures. Encounters Start End Encounter Admission Attending Care Care Encounter Source Date/Time Date/Time Type Type Clinicians Facility Department ID 2019-09-26 2019-09-26 Abstract Zari [facility] [id number] 00:00:00 00:00:00 Nicole SPECIALTY [id number] [facility] [id number] [place] AT [phone] TRAVIS Ratliff [facility] 2019-09-16 2019-09-16 Telephone ASTER Damico [id number] 00:00:00 00:00:00 Dedrick RUSSELL [id number] [facility] [id number] 2019-09-14 2019-09-14 Urgent Pob1, Acute [facility] [id number] 12:29:37 12:49:37 [facility] [id number] [place] [id number] [place] [id number] [facility] [address] 2019-08-29 2019-08-29 Office PattenIsidro crawley [id number] 13:15:20 16:27:02 Visit Y Pediatric [id number] s and [id number] Adult [id number] [facility] Results Test Description Test Time Test Comments Results Result [facility] e Comments BREAST ULTRASOUND 2018-07-14 - DIAG MAMM BILATERAL BILATERAL 1 YISSEL CAD DIGITALBILATERAL 15:30:02 DIGITAL DIAGNOSTIC MAMMOGRAM 3D/2D WITH CAD: 08/02/2018CLINICAL: Previous breast cancer. Digital breast tomosynthesis was performed in addition to routine CC and MLO views. Current mammographic images were evaluated by either a [facility] M-Vu or a [employer] ImageChecker CAD (computer aided detection system). Comparison is made to exams dated 07/30/2017 mammogram, 06/24/2016 mammogram, and 03/25/2015 mammogram - [facility]-. There are scattered fibroglandular tissues in both breasts. There are post operative findings and biopsy clips in the left breast. No suspicious mass, architectural distortion, malignant type calcification, or lymph node abnormality detected. INCOMPLETE ASSESSMENT: ADDITIONAL IMAGING EVALUATION RECOMMENDEDUltrasound pending for additional evaluation. Resume annual screening mammography in one year. - BREAST ULTRASOUND BILATERALULTRASOUND OF BOTH BREASTS AND BOTH AXILLA: 08/02/2018Comparison is made to exams dated 07/30/2017 mammogram, 06/24/2016 mammogram, and 03/25/2015 mammogram - [facility]-. Real-time ultrasound of both breasts and both axilla and clinical breast exam was performed. No abnormalities were seen sonographically in either breast or either axilla. Clinical breast exam was unremarkable. IMPRESSION: NEGATIVE There is no sonographic evidence of malignancy. Patient has been informed that she should have screening mammogram and supplemental ultrasound in 1 year.Kacie Garcia M.D. dm/:08/02/2018 15:30:02 Attending Technologist: Galina Vela FW, [facility]-Imaging Technologist: Lissy Mcclellan FW, [facility]-letter sent: BIRADS 1-2 Combo FU Letter Mammogram BI-RADS: 0 Indeterminate Ultrasound BI-RADS: 1 Negative DIAG MAMM 2018-07-14 - DIAG MAMM BILATERAL BILATERAL YISSEL 1 YISSEL CAD DIGITALBILATERAL CAD DIGITAL 15:30:02 DIGITAL DIAGNOSTIC MAMMOGRAM 3D/2D WITH CAD: 08/02/2018CLINICAL: Previous breast cancer. Digital breast tomosynthesis was performed in addition to routine CC and MLO views. Current mammographic images were evaluated by either a [facility] M-Vu or a [employer] ImageChecker CAD (computer aided detection system). Comparison is made to exams dated 07/30/2017 mammogram, 06/24/2016 mammogram, and 03/25/2015 mammogram - [facility]-. There are scattered fibroglandular tissues in both breasts. There are post operative findings and biopsy clips in the left breast. No suspicious mass, architectural distortion, malignant type calcification, or lymph node abnormality detected. INCOMPLETE ASSESSMENT: ADDITIONAL IMAGING EVALUATION RECOMMENDEDUltrasound pending for additional evaluation. Resume annual screening mammography in one year. - BREAST ULTRASOUND BILATERALULTRASOUND OF BOTH BREASTS AND BOTH AXILLA: 08/02/2018Comparison is made to exams dated 07/30/2017 mammogram, 06/24/2016 mammogram, and 03/25/2015 [facility] Real-time ultrasound of both breasts and both axilla and clinical breast exam was performed. No abnormalities were seen sonographically in either breast or either axilla. Clinical breast exam was unremarkable. IMPRESSION: NEGATIVE There is no sonographic evidence of malignancy. Patient has been informed that she should have screening mammogram and supplemental ultrasound in 1 year.Kacie Garcia M.D. dm/:08/02/2018 15:30:02 Attending Technologist: Galina Vela , [facility]ITAL[facility] Technologist: Lissy Mcclellan , [facility]ITALletter sent: BIRADS 1-2 Combo FU Letter Mammogram BI-RADS: 0 Indeterminate Ultrasound BI-RADS: 1 Negative
--- OUTSIDE RECORDS SUMMARY | 2019-10-02 16:36 | XMS REPORT | Summary of Care ---
:1970 Author Organization [facility] - [facility] Address [address] [place] [address] Care Team Providers Name Role Phone Pcp, Does Not Have A Primary Care Provider Reason for Visit Reason Comments Rash Pt states she has been havin g b/p issues and all these symptoms for a yr now. Took her b/p this mo rning it was 60/40. she is feeling dizzy and weak and its making her vomit. Fatigue BLURRED VISION Vomiting Encounter Details Date Type Department Care Team Description 07/28/2019 Urgent Care [facility] Lacey Edmonds PA [address] [place] [address] [place] [id number] Dizziness (Primary Dx); [facility] Blurry vision; [address] [place] [address] e Non-intractable vomiting wit h nausea, unspecified vomiting type; [place], [place] Hypotension, un specified hypotension type; [id number] Fatigue, unspecified type; [phone] Nasal congestio n; Hives; Uses Bulgarian as primary spoken language Allergies No Known Allergiesdocumented as of this encounter (statuses as of 07/28/2019) Medications Medication Sig Dispensed Refills Start Date [...] Take by mouth 0 Active tablet daily. montelukast 10 mg Take 1 tablet by 30 tablet 0 07/10/201907/14 Active tabletIndications: mouth daily for 30 Allergic sinusitis days. documented as of this encounter (statuses as of 07/28/2019) Active Problems Patient Care Coordination Note Hypertension [...] My Hypertension Care Plan includes the f toniaing: ? 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 If I am a smoker, stop smoking ? Manage stress by identifying three way s to reduce stress ? [employer] (www[facility]/varinode) is an online tool that will allow me to review lab results and portions of my health record, and to communicate with healthcare providers as needed. If I do not have a [employer] account, I will discuss this wi th [...] as of this encounter (statuses as of 07/28/2019) Immunizations Name Administration Dates Next Due HEP [...] been in contact with No / Unsure 07/28/2019 11:58 AM CDT someone who was confirmed or suspected to have Coronavirus / COVID-19? documented as of this encounter Last Filed Vital Signs Vital Sign Reading Time Taken Comments Blood Pressure 90/70 07/28/2019 11:12 AM CDT Pulse 101 07/28/2019 11:12 AM CDT Temperature 36.5 C (97.7 F) 07/28/2019 11:12 AM CDT Respiratory Rate 16 07/28/2019 11:12 AM CDT Oxygen Saturation 95% 07/28/2019 11:12 AM CDT Inhaled Oxygen Concentration - - Weight 71.7 kg (158 lb) 07/28/2019 11:12 AM CDT Height 152.4 cm (5') 07/28/2019 11:12 AM CDT Body Mass Index 30.86 07/28/2019 11:12 AM CDT documented in this encounter Progress Notes Sneha Shearer MA - 07/28/2019 11:20 AM CDT Bianka Montelongo is a 49 year old female. Chief Complaint Patient presents with Rash Pt states she has been having b/p issues and all these symptoms for a yr now. Took her b/p this morning it was 60/40. she is feeling dizzy and weak and its making her vomit. Fatigue BLURRED VISION Vomiting Vitals: 07/28/19 1112 BP: 90/70 Pulse: 101 Resp: 16 Temp: 36.5 C (97.7 F) SpO2: 95% Weight: 158 lb (71.7 kg) Height: 5' (1.524 m) [facility] [place] [address] All Vitals taken, allergies and all medications reviewed, fall risk assessed. Pain level 0. Sneha Shearer MA TTATJesika Edmonds PA - 07/28/2019 11:20 AM CDT Cc: Chief Complaint Patient presents with Rash Pt states she has been having b/p issues and all these symptoms for a yr now. Took her b/p this morning it was 60/40. she is feeling dizzy and weak and its making her vomit. Fatigue BLURRED VISION Vomiting Bianka Montelongo is a 49 year old female. Patient presents with hypotension that began this morning. BP at home was 60/40. Reports having 1 other episode of hypotension 4 months prior but did not have any accompanying symptoms. Under the care of YURIDIA Palomino which she had a telemedicine visit on 06/23/2019 and in person visit 05/22/2019- BP 140/90 at that time. Did not take enalapril this morning. Today, she first noticed hives all over around 9 am. Admits to this being chronic x 1 year and reports taking singulair to help manage. She took the singular right when she noticed the hives and hives resolved within 45 minutes. About 30 minutes later, she began having dizziness, blurry vision, fatigue, nausea and vomiting. BP 60/40 at that time. Denies pmh of CVA/MS/CAD. No FHx of CAD/MS/CVA. Admits to drinking plenty of water today. She has not eaten. Has prediabetes, did not check sugar. Dizziness: Quality: imbalance Timing: lasting 2 seconds at a time. Not worsened or improved by anything. Not exertional. Associated s/s: + blurry vision + nausea + vomiting x 2 + feels weak No slurred speech, facial droop, numbness/tingling No SMITH, seizures No vision loss, diplopia, flashes of light No cp, sob, palpitations No abdominal pain, diarrhea No dysuria, frequency, urgency, hematuria Tx: nothing URI Presenting symptoms: congestion and fatigue Presenting symptoms: no cough, no ear pain, no facial pain, no fever, no rhinorrhea and no sore throat Duration: 1 day Timing: Intermittent Chronicity: New Worsened by: Nothing Associated symptoms: no arthralgias, no headaches, no myalgias, no neck pain, no sinus pain, no sneezing and no wheezing Risk factors: chronic cardiac disease (HTN) Risk factors: not elderly, no chronic kidney disease, no chronic respiratory disease, no diabetes mellitus, no immunosuppression, no recent illness, no recent travel and no sick contacts Allergies Bianka has No Known Allergies. Medications Outpatient Medications Prior to Visit Medication Sig Dispense Refill Cetirizine 10 mg capsule Take by mouth. enalapril 10 mg tablet Take by mouth daily. montelukast 10 mg tablet Take 1 tablet by mouth daily for 30 days. 30 tablet 0 naproxen 500 mg tablet Take 1 tablet by mouth 2 (two) times daily with meals. 30 tablet 0 Blood Pressure Monitor Kit Use as directed 1 Kit 0 citalopram 20 mg tablet TAKE 1 2 (ONE HALF) TABLET BY MOUTH ONCE DAILY FOR 7 DAYS THEN 1 TABLET DAILY THEREAFTER No facility-administered medications prior to visit. 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 Negative for activity change, appetite change, chills, diaphoresis, fever and unexpected weight change. HENT: Positive for congestion. Negative for ear pain, facial swelling, postnasal drip, rhinorrhea, sinus pressure, sinus pain, sneezing, sore throat, trouble swallowing and voice change. Eyes: Positive for visual disturbance. Negative for photophobia, pain, discharge, redness and itching. Respiratory: Negative for cough, chest tightness, shortness of breath and wheezing. Cardiovascular: Negative for chest pain, palpitations and leg swelling. Gastrointestinal: Positive for nausea and vomiting. Negative for abdominal distention, abdominal pain, anal bleeding, blood in stool, constipation and diarrhea. Genitourinary: Negative for bladder incontinence, dysuria, urgency, frequency, hematuria, flank painand vaginal bleeding. Musculoskeletal: Negative for arthralgias, back pain, gait problem, joint swelling, myalgias, neck pain and neck stiffness. Skin: Negative for color change and rash. Neurological: Positive for dizziness and weakness. Negative for tremors, seizures, syncope, facial asymmetry, speech difficulty, light-headedness, numbness and headaches. Psychiatric/Behavioral: Negative for agitation, behavioral problems and confusion. Vital Signs BP 90/70 | Pulse 101 | Temp 36.5 C (97.7 F) | Resp 16 | Ht 5' (1.524 m) | Wt 158 lb (71.7 kg) | SpO2 95% | BMI 30.86 kg/m Physical Exam Constitutional: She is oriented to person, place, and time. She appears well- developed and well-nourished. No distress. HENT: Head: Normocephalic and atraumatic. Right Ear: External ear normal. Left Ear: External ear normal. Nose: Nose normal. Mouth/Throat: Oropharynx is clear and moist. Eyes: Pupils are equal, round, and reactive to light. Conjunctivae and EOM are normal. Right eye exhibits no discharge. Left eye exhibits no discharge. Neck: Normal range of motion. Neck supple. Cardiovascular: Normal rate, regular rhythm and normal heart sounds. Pulmonary/Chest: Effort normal and breath sounds normal. No stridor. No respiratory distress. She has no wheezes. She has no rales. Abdominal: Soft. Bowel sounds are normal. She exhibits no distension. There is no tenderness. There is no guarding. Musculoskeletal: Normal range of motion. She exhibits no edema or tenderness. Neurological: She is alert and oriented to person, place, and time. No sensory deficit. She exhibitsnormal muscle tone. Coordination normal. Able to raise eyebrows, frown, smile, poof out cheeks, bite down and clench jaw, stick out tongue and say AH, move tongue side to side, sensory of face to palpation intact when eyes closed, hearing to rubbing of fingers with eyes closed intact, interpretation of number of fingers being held intact DANNA fingers and hands intact, finger to nose Strength 5/5 b/l UE and LE Sensory intact and equal b/l UE and LE Negative rhomberg and pronator drift test Gait- intact Skin: Skin is warm and dry. No rash noted. She is not diaphoretic. No erythema. No pallor. No rash or hives present on exam Psychiatric: She has a normal mood and affect. Her behavior is normal. Nursing note and vitals reviewed. Assessment/Plan Dizziness (primary encounter diagnosis) Blurry vision Non-intractable vomiting with nausea, unspecified vomiting type Hypotension, unspecified hypotension type Fatigue, unspecified type Plan: CORONAVIRUS COVID-19 TESTING Patient presents with symptoms that began this morning. BP at home 60/40, in clinic 90/70 with HR 101. Normal neuro. No focal neuro findings. Gait intact. Given symptoms/presentation, age and comorbidities recommend STAT ED evaluation, ACS evaluation, neuro eval. COVID-19 screening done. Report calledand given to ED staff. Patient transported via wheelchair to ED. PPE protocol performed. Encouraged to follow-up with PCP and possibly cardio, neuro pending hospital evaluation. Nasal congestion Plan: CORONAVIRUS COVID-19 TESTING Recommend the following at home care: -Increase water intake -Take over the counter vitamin C/multivitamin with vitamin C -Take Tylenol as needed, avoid nsaids -Take OTC Mucinex DM or Robitussin DM as needed -REST -Wash hands often -Cover mouth when coughing -Wear mask with in the same room/car as others -Gargle with warm salt water as needed -Drink warm liquids as needed. -Throat lozenges as needed -Quarantine until your COVID results are back -Stay in your own bedroom and use a separate bathroom -Keep at least 6 feet from you and others -Avoid sharing personal household items, dishes, glasses, cups, towels -Clean high traffic/touch areas daily. These include but not limited to: doorknobs, refrigerator/cabinet handles, phones, keyboards, tablets, light switches. -Monitor your symptoms. Take your temperature 2 times daily. -Follow-up with PCP as needed, if no improvement. -Monitor your symptoms. Go to the ED if worsening symptoms: chest pain, difficulty breathing, coughing up blood, weakness, dizziness, passing out, AMS. Hives Plan: Resolved. No evidence of hives or rash on exam. Patient reports as chronic, unchanged. Managed by PCP, encouraged to continue regular follow-up. Uses Bulgarian as primary spoken language Plan: [facility] interpretor used. Pt ed/precautions given in detail regarding conditions/medicaitons. Er precautions given. Pt reportsunderstanding and agrees. rtc if s/s worsen or do not improve ; Plan of care, desired health behaviors, goals, Ddx, & any prescribed or OTC medications discussed with patient. Education resources & self management tools provided and reviewed with AVS. Patient/guardian/family verbalized understanding & agrees to plan of care. Barriers to care: NONE Ability to manage care: Good This visit did not involve counseling and coordination that comprised more than 50% of the visit time. documented in this encounter Plan of Treatment Date Type Specialty Care Team Description 08/23/2019 Office Visit Orthopedic Surgery Yo Whitman MD [address] [place] [address] 10/02/2019 Appointment Radiology Bianka Palomino , [employer] [address] [facility] [address] [place] [address] Health Maintenance Due Date Last Done [...] history exists documented as of this encounter Procedures Procedure Name Priority Date/Time Associated Diagnosis Comme nts CORONAVIRUS COVID-19 Routine 07/28/2019 10:58 Fatigue, unspeci fied Results for this TESTING AM CDT type procedure are in Nasal congestion the results section. documented in this encounter Results CORONAVIRUS COVID-19 TESTING (07/28/2019 10:58 AM CDT) Pathologist Sig nature SARS-CoV-2 Not Detected Not Detected [facility] Specimen Swab - NASOPHARYNGEAL SWAB Narrative Performed At [facility] COVID-19 Assay is an isothermal nucleic [facility] acid amplification test intended for the qualitative detection of nucleic acid from SARS-CoV-2 viral RNA in nasopharyngeal (WEBBING SEAMER POUND NET) specimens. It is used under Emergency Use Authorization (EUA) by FDA. The limit of detection (LOD) of the assay is 125 Genome Equivalents/mL. A positive result is indicative of the presence of SARS-CoV-2 RNA. Clinical correlation with patient history and other diagnostic information is necessary to determine patient infection status. A negative (Not Detected) result does not preclude SARS-CoV-2 infection. Clinical correlation with patient history and other diagnostic information should be used in patient management decisions. Invalid: Please collect a new specimen for repeat patient testing if clinically indicated. Performing Organization Address City/State/Zipcode Phone Number [facility] CLIA: [id number], [address] [place], [place] [address] documented in this encounter Visit Diagnoses Diagnosis Dizziness - Primary Dizziness and giddiness Blurry vision Other specified visual disturbances Non-intractable vomiting with nausea, un specified vomiting type Hypotension, unspecified hypotension typ e Fatigue, unspecified type Nasal congestion Other diseases of nasal cavity and sinus es Hives Urticaria, unspecified Uses Bulgarian as primary spoken language documented in this encounter documented as of this encounter"
--- OUTSIDE RECORDS SUMMARY | 2019-10-02 16:36 | XMS REPORT | Summary of Care ---
:1970 Author Organization [facility] Address [address] [place] [address] Care Team Providers Name Role Phone Pcp, Does Not Have A Primary Care Provider Reason for Visit Reason Comments Refill Request Encounter Details Date Type Department Care Team Description 07/18/2019 Refill [facility] & EscBianka leon FNP Refill Request Adult Primary Care- [place] [address] [facility] [address] [address] [place] [phone] Allergies No Known Allergiesdocumented as of this encounter (statuses as of 07/18/2019) Medications Medication Sig Dispensed Refills Start Date [...] Take by mouth 0 Active tablet daily. fluticasone (FLONASE Use 2 Sprays in 10 g 0 07/10/2019 Active SENSIMIST) 27.5 each nostril daily mcg/actuation nasal for 14 days. sprayIndications: Allergic sinusitis montelukast 10 mg Take 1 tablet by 30 tablet 0 07/10/201907/14 Active tabletIndications: mouth daily for 30 Allergic sinusitis days. 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 If I am a smoker, stop smoking ? Manage stress by identifying three way s to reduce stress ? [employer] (www[facility]/[employer]) is an online tool that will allow me to review lab results and portions of my health record, and to communicate with healthcare providers as needed. 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
--- OUTSIDE RECORDS SUMMARY | 2019-10-02 16:37 | XMS REPORT | Summary of Care ---
:1970 Author Organization [facility] - [facility] Address [address] [place] [address] Care Team Providers Name Role Phone Pcp, Does Not Have A Primary Care Provider Reason for Visit Reason Comments Assessment FILIPINO Encounter Details Date Type Department Care Team Description 08/01/2019 Telephone [facility] & Bianka Palomino , Assessment (FILIPINO) Adult Primary Care- [facility] 2020 [facility] [address] [facility] [address] [place] [address] [place], [place] [id number] Allergies No Known Allergiesdocumented as of this encounter (statuses as of 08/01/2019) Medications Medication Sig Dispensed Refills Start Date [...] Take 1 tablet by 30 tablet 0 07/10/20192 09/2019 Active tabletIndications: mouth daily for 30 Allergic sinusitis days. cefpodoxime 100 mg Take 1 tablet by 10 tablet 0 07/28/2019 Active tabletIndications: mouth 2 (two) Weakness times daily for 5 days. 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 If I am a smoker, stop smoking ? Manage stress by identifying three way s to reduce stress ? [employer] (www[facility]/[employer]) is an online tool that will allow me to review lab results and portions of my health record, and to communicate with healthcare providers as needed. If I do not have a [employer] account, I will discuss this wi th [...] as of this encounter (statuses as of 08/01/2019) Immunizations Name Administration Dates Next Due HEP [...] Visit Orthopedic Surgery Yo Whitman MD [address] [place] [address] 10/02/2019 Appointment Radiology Bianka Palomino , LICENSED CERTIFIED ORTHOTIST [address] [place] [address] Health Maintenance Due Date Last [...] Dates Phone Address Type CEASAR MCDONOUGH II [id number] 2019-Present HMO /PPO/POS documented as of this encounter
--- OUTSIDE RECORDS SUMMARY | 2019-10-02 16:37 | XMS REPORT | Summary of Care ---
:1970 Author Organization [facility] - Health Address [address] [place] [address] Care Team Providers Name Role Phone Pcp, Does Not Have A Primary Care Provider Reason for Visit Reason Comments Other rash this AM Nausea Auth/Cert Status Reason Specialty Diagnoses / Referred By Referred To Procedures Contact Contact Emergency Medicine [facility] Em ergency Dept [address] [place] [address] [place] [phone] Fax: Encounter Details Date Type Department Care Team Description 07/28/2019 Emergency ADC-Emergency Aleyda Saxena Weaknes s (Primary Dx) Department DO [address] [place] [id number] [place] [address] [phone] Allergies No Known Allergiesdocumented as of this [...] My Hypertension Care Plan includes the f carmenzalowing: ? 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 If I am a smoker, stop smoking ? Manage stress by identifying three way s to reduce stress ? [employer] ([email or web address]) is an online tool that will allow me to review lab results and portions of my health record, and to communicate with healthcare providers as needed. If I do not have a [employer] account, I will discuss this wi th [...] Sign Reading Time Taken Comments Blood Pressure 122/80 07/28/2019 2:00 PM CDT Pulse 67 07/28/2019 2:00 PM CDT Temperature 36.6 C (97.8 F) 07/28/2019 12:03 PM CDT Respiratory Rate 16 07/28/2019 2:00 PM CDT Oxygen Saturation 99% 07/28/2019 2:00 PM CDT Inhaled Oxygen Concentration - - Weight 79.4 kg (175 lb) 07/28/2019 12:03 PM CDT Height 154.9 cm (5' 1") 07/28/2019 12:03 PM CDT Body Mass Index 33.07 07/28/2019 12:03 PM CDT documented in this encounter Discharge Instructions Aleyda Rueda DO - 07/28/2019DIAGNOSIS 1. UTI NO LIFE-THREATENING FINDINGS ON TODAY'S EXAM. PROCEDURES IN THE ER TODAY: Blood work Urine test MEDICATIONS ADMINISTERED IN THE ER TODAY: IV fluids Zofran Rocephin YOUR PRESCRIPTIONS AND [id number] MEDICATION RECOMMENDATIONS: Vantin by mouth twice a day. Please complete your entire course of antibiotics. SPECIAL CARE INSTRUCTIONS: None FOLLOW-UP RECOMMENDATIONS: RECOMMEND FOLLOW-UP WITH A PRIMARY CARE PROVIDER OR SPECIALIST IN 2-5 DAYS, ESPECIALLY IF NO IMPROVEMENT IN SYMPTOMS. TO FOLLOW-UP WITHIN THE [facility], TRY THESE OPTIONS (CLINIC APPOINTMENTS AVAILABLE ON NORT-ZE-TMRU BASIS): 1. SCHEDULE AN APPOINTMENT ONLINE AT [email or web address] 2. OR CALL THE [facility] AT OR 3. OR CALL YOUR [facility] PHYSICIAN'S OFFICE DIRECTLY IF YOU ARE ALREADY AN ESTABLISHED [facility] PATIENT. OR, YOU MAY FOLLOW-UP WITH A PROVIDER OF YOUR CHOICE, SUCH : 1. A PHYSICIAN OF YOUR CHOICE 2. [facility], . LOCATIONS IN [facility] 3. [facility], [address], [place]; [phone] RETURN TO ER FOR WORSENING OF SYMPTOMS. AttachmentsThe following attachments cannot be sent through Care Everywhere. Weakness (Uncertain Cause) (Northern Irish)Bladder Infection, Female (Adult) (Northern Irish) documented in this encounter Plan of Treatment Date Type Specialty Care Team Description 08/23/2019 Office Visit Orthopedic Surgery Yo Whitman MD [address] [place] [address] 10/02/2019 Appointment Radiology Bianka Palomino , AD TERMINAL MAKEUP OPERATOR [address] [place] [address] Health Maintenance Due Date Last Done [...] encounter Procedures Procedure Name Priority Date/Time Associated Comments Diagnosis URINALYSIS STAT 07/28/2019 1:02 Weakness Results for this PM CDT procedure are i n the results section. CBC WITH DIFFERENTIAL STAT 07/28/2019 12:10 Weakness Re sults for this PM CDT procedure are i n the results section. CBC WITH DIFFERENTIAL Routine 07/28/2019 12:10 Weakness Re sults for this PM CDT procedure are i n the results section. BASIC METABOLIC PANEL STAT 07/28/2019 12:10 Weakness Re sults for this (NA, K, CL, CO2, PM CDT procedure a re in GLUCOSE, BUN, the results CREATININE, CA) section. HEPATIC FUNCTION STAT 07/28/2019 12:10 Weakness Results for this PANEL (23774) PM CDT procedure are in (ALB,T.PRO,BILI the results T,BU/BC,ALT,AST,ALK section. PHOS) LIPASE STAT 07/28/2019 12:10 Weakness Results for this PM CDT procedure are i n the results section. documented in this encounter Results Urinalysis (07/28/2019 1:02 PM CDT) Pathologist Sig nature APPEARANCE Cloudy (A) Clear [facility] COLOR Berenice (A) Yellow [facility] PH 5.0 4.8 - 8.0 [facility] SP GRAVITY 1.019 1.003 - 1.030 [facility] GLU U QUAL Normal Normal [facility] BLOOD 1+ (A) Negative [facility] KETONES 5 mg/dL (A) Negative [facility] PROTEIN 100 mg/dL (A) Negative [facility] UROBILIN Normal Normal [facility] BILIRUBIN Negative Negative [facility] NITRITE Negative Negative [facility] LEUK NAYELY 250/uL (A) Negative [facility] RBC/HPF 11 (H) 0 - 3 HPF [facility] WBC/HPF 20 (H) 0 - 5 HPF [facility] BACTERIA Moderate (A) Negative [facility] MUCOUS Marked (A) Negative LPF [facility] SQ EPITH 33 HPF [facility] CA OXALATE 2 (H) <=1 HPF [facility] HYAL CAST 61 (H) <=2 LPF [facility] Specimen Urine - URINE, CLEAN CATCH Performing Organization Address City/State/Zipcode Phone Number [facility] CLIA: [id number], [address] [place] [address] CBC WITH DIFFERENTIAL (07/28/2019 12:10 PM CDT) Pathologist Sig nature WBC 14.79 (H) 4.30 - 11.10 [facility] 10*3/L [facility] RBC 5.19 3.93 - 5.25 [facility] 10*6/L [facility] HGB 15.2 (H) 11.6 - 15.0 [facility] g/dL [facility] HCT 46.8 (H) 35.7 - 45.2 % [facility] MCV 90.2 80.6 - 95.5 fL [facility] MCH 29.3 25.9 - 32.8 pg [facility] MCHC 32.5 31.6 - 35.1 [facility] g/dL [facility] RDW-SD 43.7 39.0 - 49.9 fL [facility] RDW-CV 13.3 12.0 - 15.5 % [facility] PLT 386 (H) 166 - 358 [facility] 10*3/L [facility] MPV 10.1 9.5 - 12.9 fL [facility] NRBC/100 WBC 0.0 0.0 - 10.0 /100 [facility] WBCs [facility] NRBC x10^3 <0.01 10*3/L [facility] GRAN MAT (NEUT) % 77.3 % [facility] IMM GRAN % 0.50 % [facility] LYMPH % 17.6 % [facility] MONO % 4.2 % [facility] EOS % 0.1 % [facility] BASO % 0.3 % [facility] GRAN MAT x10^3(ANC) 11.43 (H) 1.88 - 7.09 [facility] 10*3/uL H[facility]PITAL [facility] IMM GRAN x10^3 0.07 (H) 0.00 - 0.06 [facility] 10*3/uL [facility] LYMPH x10^3 2.60 1.32 - 3.29 [facility] 10*3/uL [facility] MONO x10^3 0.62 0.33 - 0.92 [facility] 10*3/uL [facility] EOS x10^3 <0.03 (L) 0.03 - 0.39 [facility] 10*3/uL [facility] BASO x10^3 0.05 0.01 - 0.07 [facility] 10*3/uL [facility] Specimen Blood - VENOUS Performing Organization Address [facility] Phone Number [facility] CLIA: [id number], [address] [place] [address] Lipase Serum (07/28/2019 12:10 PM CDT) Pathologist Sig nature LIPASE 175 0 - 220 U/L [facility] Specimen Blood - VENOUS Performing Organization Address [facility] Phone Number [facility] CLIA: [id number], [address] [place] [address] Hepatic Function Panel (ALB, T.PRO, BILI T, BU/BC, ALT, AST, ALK PHOS) (07/28/2019 12:10 PM CDT) Pathologist Sig nature TOTAL BILI 0.5 0.1 - 1.1 mg/dL [facility] BILI UNCON 0.7 0.1 - 1.1 mg/dL [facility] BILI CONJ 0.0 0.0 - 0.3 mg/dL [facility] T PROTEIN 8.0 6.3 - 8.2 g/dL [facility] ALBUMIN 4.6 3.5 - 5.0 g/dL [facility] ALK PHOS 104 34 - 122 U/L [facility] ALTv 30 5 - 35 U/L [facility] AST(SGOT) 46 (H) 13 - 40 U/L [facility] Specimen Blood - VENOUS Performing Organization Address [facility] Phone Number [facility] CLIA: [id number], [address] [place] [address] Basic Metabolic Panel (NA, K, CL, CO2, GLUCOSE, BUN, CREATININE, CA) (07/28/2019 12:10 PM CDT) [facility] NA 143 135 - 145 [facility] mmol/L [facility] K 3.9 3.5 - 5.0 [facility] mmol/L [facility] CL 106 98 - 108 mmol/L [facility] CO2 TOTAL 30 23 - 31 mmol/L [facility] AGAP 7 2 - 16 [facility] BUN 15 7 - 23 mg/dL [facility] GLUCOSE 156 (H) 70 - 110 mg/dL [facility] CREATININE 0.99 0.50 - 1.04 [facility] mg/dL [facility] CALCIUM 9.8 8.6 - 10.6 [facility] mg/dL [facility] eGFR Calculation 59.4 mL/min/1.73m2 [facility] ([facility] [place]ian) eGFR Calculation 72.0 mL/min/1.73m2 [facility] () [facility] Specimen Blood - VENOUS Narrative Performed At Association of Glomerular Filtration Rate (GFR) [facility] and Staging of Kidney Disease* + + +- + | GFR (mL/min/1.73 m2) | With Kidney Damage | Without Kidney Damage + + +- + | >90 | Stage one | Normal + + +- + | 60-89 | Stage two | Decreased GFR + + +- + | 30-59 | Stage three | Stage three + + +- + | 15-29 | Stage four | Stage four + + +- + | <15 (or dialysis) | Stage five | Stage five + + +- + *Each stage assumes the associated GFR level has been in effect for at least three months. Stages 1 to 5, with or without kidney disease, indicate chronic kidney disease. Notes: Determination of stages one and two (with eGFR >59mL/min/1.73 m2) requires estimation of kidney damage for at least three months as defined by structural or functional abnormalities of the kidney, manifested by either: Pathological abnormalities or Markers of kidney damage (including abnormalities in the composition of the blood or urine or abnormalities in imaging tests). Performing Organization Address City/State/Zipcode Phone Number [facility] CLIA: [id number], [address] [place], [place] [address] documented in this encounter Visit Diagnoses Diagnosis Weakness - Primary Other malaise and fatigue documented in this encounter Administered Medications Medication Order MAR Action Action Date Dose Rate Site cefTRIAXone (ROCEPHIN) 1,000 mg Given 07/28/2019 2:37 PM CDT 1, 000 mg in NaCl 0.9% (NS) 50 mL MINI-BAG 1,000 mg, IV Piggyback, ONCE, 1 dose, Wed07/28/19 at 1530, 50 mL, Reason for Anti-Infective: Empiric Therapy for Suspected Infection, Empiric Therapy Site: Urine, Duration of therapy: 72 hours NaCl 0.9% (NS) bolus infusion New Bag 07/28/2019 12:11 PM CDT 1,000 mL 999 mL/hr 1,000 mL at 999 mL/hr, 1,000 mL, IV Infusion, ONCE, 1 dose, Wed07/28/19 at 1215, JOSE CARLOS ondansetron (ZOFRAN (PF)) injection 4 mg Given 07/28/2019 12:13 PM CDT 4 mg 4 mg, Slow IV Push, ONCE, 1 dose, Wed07/28/19 at 1315, JOSE CARLOS documented in this encounter documented as of this encounter
--- OUTSIDE RECORDS SUMMARY | 2019-10-02 16:37 | XMS REPORT | Summary of Care ---
:1970 Author Organization [facility] - [facility] Address [address] [place] [address] Care Team Providers Name Role Phone Pcp, Does Not Have A Primary Care Provider Reason for Visit Reason Comments Assessment NICARAGUAN Encounter Details Date Type Department Care Team Description 08/01/2019 Telephone [facility] Pediatrics & Bianka Palomino , Assessment (NICARAGUAN) Adult Primary Care- Bret [facility] [address] 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 If I am a smoker, stop smoking ? Manage stress by identifying three way s to reduce stress ? [employer] ([email or web address]/[employer]) is an online tool that will allow me to review lab results and portions of my health record, and to communicate with healthcare providers as needed. If I do not have a [employer] account, I will discuss this wi th [...] Visit Orthopedic Surgery Yo Whitman MD [address] [place] [address] 10/02/2019 Appointment Radiology Bianka Palomino , ADVISORY SOFTWARE ENGINEER [address] [place] [address] Health Maintenance Due Date Last [...] Dates Phone Address Type CEASAR MCDONOUGH II [phone] 2019-Present HMO /PPO/POS documented as of this encounter
--- OUTSIDE RECORDS SUMMARY | 2019-10-02 16:38 | XMS REPORT | Summary of Care ---
:1970 Author Organization [facility] - Health Address [address] [place] [id number] Care Team Providers Name Role Phone Pcp, Does Not Have A Primary Care Provider Reason for Visit Reason Comments Leg Pain x 2 weeks, bilateral DIZZY headaches MIGRAINE Encounter Details Date Type Department Care Team Description 08/29/2019 Office Visit [facility] Isidro Patten MD Pain in both lower extremities (Primary Dx); Pediatrics & Adult [address] [facility] [place] rgic rhinitis due to pollen, unspecified seasonality; Primary Care- [place] [id number] Migraine without status migrainosus, not intractable, unspecified migraine type [address] [address] [place] [id number] Allergies No Known Allergiesdocumented as of this encounter (statuses as of 08/29/2019) Medications Medication Sig Dispensed Refills Start End Date Status Date citalopram 20 mg tablet TAKE 1 2 (ONE 0 Active HALF) TABLET 9 BY MOUTH ONCE DAILY FOR 7 DAYS THEN 1 TABLET DAILY THEREAFTER Blood Pressure Monitor Use as 1 Kit 0 Active KitIndications: directed 0 Essential hypertension Cetirizine 10 mg Take by 0 Act hoang capsuleIndications: mouth. Allergic sinusitis enalapril 10 mg tablet Take by mouth 0 Active daily. naproxen (NAPROSYN) 500 Take 1 tablet 30 tablet 0 Active mg tabletIndications: by mouth 2 0 LUQ pain (two) times daily with meals. cyclobenzaprine 5 mg Take 1 tablet 10 tablet 0 Active tabletIndications: Pain by mouth at 0 in both lower bedtime. extremities fluticasone propionate Use 1 Byron in 1 Bottle 5 Active 50 mcg/actuation nasal each nostril 0 sprayIndications: daily. Allergic rhinitis due to pollen, unspecified seasonality SUMAtriptan 25 mg Evelio 1 tab po 9 tablet 1 Active tabletIndications: x1 for 0 Migraine without status headache,may migrainosus, not repeat after 2 intractable, hours, max 200 unspecified migraine mg/24 hours type naproxen 500 mg Take 1 tablet 30 tablet 0 08/29/19 Discontinued tabletIndications: by mouth 2 0 20 Acute maxillary (two) times sinusitis, recurrence daily with not specified meals. methylPREDNISolone Take by mouth 21 Each 0 Discontinued (MEDROLNHUNG,) 4 mg SEE-INSTRUCTIO 0 20 tabletsIndications: NS. follow Allergic dermatitis, package Hives directions documented as of this encounter (statuses as of 08/29/2019) Active Problems Patient Care Coordination Note Hypertension [...] ? 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 If I am a smoker, stop smoking ? Manage stress by identifying three way s to reduce stress ? [employer] ([email or web address]) is an online tool that will allow me to review lab results and portions of my health record, and to communicate with healthcare providers as needed. If I do not have a [employer] account, I will discuss this wi th [...] as of this encounter (statuses as of 08/29/2019) Immunizations Name Administration Dates Next Due HEP [...] been in contact with No / Unsure 08/29/2019 1:13 PM CDT someone who was confirmed or suspected to have Coronavirus / COVID-19? documented as of this encounter Last Filed Vital Signs Vital Sign Reading Time Taken Comments Blood Pressure 131/76 08/29/2019 1:22 PM CDT Pulse 77 08/29/2019 1:22 PM CDT Temperature 36.5 C (97.7 F) 08/29/2019 1:22 PM CDT Respiratory Rate 18 08/29/2019 1:22 PM CDT Oxygen Saturation - - Inhaled Oxygen Concentration - - Weight 74.5 kg (164 lb 4.8 oz) 08/29/2019 1:22 PM CDT Height - - Body Mass Index 31.04 07/28/2019 12:03 PM CDT documented in this encounter Progress Notes Isidro Patten MD - 08/29/2019 1:00 PM CDT Cc: Chief Complaint Patient presents with Leg Pain x 2 weeks, bilateral DIZZY headaches MIGRAINE Bianka Montelongo is a 49 year old female. Leg Pain The incident occurred more than 1 week ago. There was no injury mechanism. The pain is present in the left leg and right leg. The pain is at a severity of 6/10. The pain is moderate. The pain has been constant since onset. The symptoms are aggravated by weight bearing. She has tried NSAIDs for the symptoms. The treatment provided mild relief. Dizziness Quality: Lightheadedness Progression: Waxing and waning Context: physical activity Associated symptoms: no headaches and no nausea Headache Pain location: Generalized Severity currently: 2/10 Timing: Intermittent Similar to prior headaches: yes Context: bright light Relieved by: Nothing Associated symptoms: dizziness Associated symptoms: no blurred vision, no fever and no nausea Allergies Bianka has No Known Allergies. Medications Outpatient Medications Prior to Visit Medication Sig Dispense Refill naproxen (NAPROSYN) 500 mg tablet Take 1 tablet by mouth 2 (two) times daily with meals. 30 tablet 0 methylPREDNISolone (MEDROL, NHUNG,) 4 mg tablets Take by mouth SEE- INSTRUCTIONS. follow package directions 21 Each 0 Cetirizine 10 mg capsule Take by mouth. enalapril 10 mg tablet Take by mouth daily. 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 Eyes: Negative for blurred vision. Gastrointestinal: Negative for nausea. Neurological: Positive for dizziness. Negative for headaches. Review of Systems (bold is positive) CONSTITUTIONAL:- diaphoresis,weight change,change in appetite,fatigue, chills, fever HENT:- change in vision, congestion, rhinorrhea , sore throat, sinus pain EYES:- pain, discharge and redness. RESPIRATORY:- cough, chest tightness, shortness of breath, wheezing. CVS:- chest pain, dyspnea on exertion, palpitations, leg swelling, Syncope,PND GASTROINTESTINAL:- abdominal distention, abdominal pain, blood in stool, constipation, nausea ,vomiting. GENITOURINARY:- dysuria, urgency, polyuria, frequency, hematuria, flank pain. MUSCULOSKELETAL:- arthralgias, joint swelling, myalgias, neck stiffness. SKIN:- color change, rash and wound. NEUROLOGIC:- seizures, syncope, weakness, light-headedness, numbness,headaches. PSYCHIATRY:- agitation, confusion,hallucinations,nervous/anxious,depression HEMATOLOGIC: adenopathy, bruise/bleed easily. ENDOCRINE:- cold intolerance, polydipsia and polyuria Vital Signs BP 131/76 | Pulse 77 | Temp 36.5 C (97.7 F) (Temporal Artery) | Resp 18 | Wt 164 lb 4.8 oz (74.5 kg) | BMI 31.04 kg/m Physical Exam CONSTITUTIONAL: oriented to person, place, and time. well-developed well- nourished. No distress. NOSE-Nasal mucosa/turbinates -mild swelling and drainage EAR -External ear normal , Normal canal,TM not bulgy or erythem MOUTH/THROAT:- Oropharynx is clear & moist , no exudate or erythema EYES:- PERRLA,EOMI,normal Conjunctivae ,no discharge NECK:- Neck supple. No JVD present. No thyromegaly present. CVS:- Regular rhythm, normal heart sounds, intact distal pulses, No M/G/R PULMONARY:- Effort normal and breath sounds normal. No stridor. No respiratory distress. no Wheezes,rales or rhonchi GI :- Soft. Bowel sounds are normal. no distension ,mass or tenderness. no rebound and no guarding. MUSCULOSKELETAL:- Bilateral lower legs with good ROM in all joints, no pain to deep palpation LYMPHADENOPATHY:- no cervical lympadenopathy NEUROLOGY:- normal reflexes. No cranial nerve deficit. Normal muscle tone. coordination normal. SKIN:- Skin is warm and dry. No rash, diaphoretic, erythema or pallor. PSYCHIATRY:- behavior is normal. Judgment and thought content normal. Assessment/Plan 1. Pain in both lower extremities -Patient exercises daily, advised to reduce high impact activity and c/w naproxen, rtc as discussed - cyclobenzaprine 5 mg tablet; Take 1 tablet by mouth at bedtime. Dispense: 10 tablet; Refill: 0 2. Allergic rhinitis due to pollen, unspecified seasonality -Hydration, tylenol/motrin for pain and fever, rtc prn -Salt water gurgles for sore throat -Try otc anti-histamine -Nasal spray or irrigation for nasal congestion - fluticasone propionate 50 mcg/actuation nasal spray; Use 1 Byron in each nostril daily. Dispense:1 Bottle; Refill: 5 3. Migraine without status migrainosus, not intractable, unspecified migraine type - SUMAtriptan 25 mg tablet; Evelio 1 tab po x1 for headache,may repeat after 2 hours, max 200 mg/24 hours Dispense: 9 tablet; Refill: 1 odDena simmons MA - 08/29/2019 1:00 PM CDT Bianka Montelongo is a 49 year old female in office for the following: Chief Complaint Patient presents with Leg Pain x 2 weeks, bilateral DIZZY headaches All vitals taken. Allergies reviewed. All medications reviewed. Fall risk assessed. Level of pain 0. [facility] [address] [place] [address] DENA GRIFFITH MA 08/29/2019 1:24 PM documented in this encounter Plan of Treatment Date Type Specialty Care Team Description 09/27/2019 Appointment Radiology Itz Whitman MD [address] [place] [id number] [phone] 09/27/2019 Office Visit Orthopedic Surgery Yo Whitman MD [address] [place] [address] [phone] 10/02/2019 Appointment Radiology Bianka Palomino , [employer] [address] [place] [address] [phone] Health Maintenance Due Date Last Done Comments Breast Cancer Screening 02/24/2018 02/24/2017 (Previously (MAMMOGRAM) completed), 04/01/2016 (Previously completed) PNEUMOCOCCAL 0-64 YEARS 02/08/2020 Postpone d from COMBINED SERIES (1 of 3 - 1975 (Refused) PCV13) Depression Screening 05/02/2020 05/02/2019 Zoster Recombinant Vaccine 05/02/2020 Postp oned from ([facility]) (1 of 2) 2019 ( Insurance / Financial) PAP SMEAR 10/14/2021 10/14/2018, 01/06/2017 (Declined), 06/07/2013, Additional history exists COLONOSCOPY 12/02/2023 12/01/2013 DTaP,Tdap,and Td Vaccines 04/25/2028 04/25/2018 (2 - Td) INFLUENZA VACCINE Completed 12/23/2018, 04/25/2018, 01/06/2017, Additional history exists documented as of this encounter Results Not on filedocumented in this encounter Visit Diagnoses Diagnosis Pain in both lower extremities - Primary Allergic rhinitis due to pollen, unspeci fied seasonality Migraine without status migrainosus, not intractable, unspecified migraine type documented in this encounter documented as of this encounter"
--- OUTSIDE RECORDS SUMMARY | 2019-10-02 16:38 | XMS REPORT | Summary of Care ---
:1970 Author Organization [facility] - [facility] Address [address] [place] [address] Care Team Providers Name Role Phone Pcp, Does Not Have A Primary Care Provider Reason for Referral MRI/CAT Scan (STAT) Status Reason Specialty Diagnoses / Referred By Referred To Procedures Contact Contact New Request Diagnostic Diagnoses Abdominal pain, unspecified abdominal location Dima, K Radiology Procedures CT ABDOMEN PELVIS WO CONTRAST Rhonda, PAC [address] [place] [phone] Radiology Services (JOSE CARLOS) Status Reason Specialty Diagnoses / Referred By Referred To Procedures Contact Contact New Request Diagnostic Diagnoses Abdominal pain, unspecified abdominal location Dima, K Radiology Procedures XR CHEST 1 [place] [address] [place] [phone] Reason for Visit Reason Comments Abdominal Pain Auth/Cert Status Reason Specialty Diagnoses / Referred By Referred To Procedures Contact Contact Emergency Medicine Diagnoses ABD PAIN [facility] [address] [place] [address] [place] [address] Fax: Encounter Details Date Type Department Care Team Description 08/08/2019 Emergency ADC-Emergency Dima, K Rhonda, LUQ pain ( Primary Dx); Department PAC Abdominal pain, unspecified abdominal lo cation; [address] [place] [address] [place] [address] Allergic dermatitis; [place] [address] [place] [address] Hives [phone] [place] [phone] Allergies No Known Allergiesdocumented as of this encounter (statuses as of 08/08/2019) Medications Medication Sig Dispensed Refills Start Date End Date Status citalopram 20 mg tablet TAKE 1 2 (ONE 0 03/13/2019 Active HALF) TABLET BY MOUTH ONCE DAILY FOR 7 DAYS THEN 1 TABLET DAILY THEREAFTER Blood Pressure Monitor Use as directed 1 Kit 0 05/22/2019 Active KitIndications: Essential hypertension naproxen 500 mg Take 1 tablet by 30 tablet 0 05/27/2019 Active tabletIndications: Acute mouth 2 (two) maxillary sinusitis, times daily with recurrence not specified meals. Cetirizine 10 mg Take by mouth. 0 Active capsuleIndications: Allergic sinusitis enalapril 10 mg tablet Take by mouth 0 Active daily. montelukast 10 mg Take 1 tablet by 30 tablet 0 07/10/201907/14 Active tabletIndications: mouth daily for 0 Allergic sinusitis 30 days. methylPREDNISolone Take by mouth 21 Each 0 08/08/2019 Active (MEDROL, NHUNG,) 4 mg SEE-INSTRUCTIONS tabletsIndications: . follow package Allergic dermatitis, directions Hives naproxen (NAPROSYN) 500 Take 1 tablet by 30 tablet 0 0 Active mg tabletIndications: mouth 2 (two) LUQ pain times daily with meals. 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 If I am a smoker, stop smoking ? Manage stress by identifying three way s to reduce stress ? [employer] (www.[facility]/[employer]) is an online tool that will allow me to review lab results and portions of my health record, and to communicate with healthcare providers as needed. If I do not have a [employer] account, I will discuss this wi th [...] as of this encounter (statuses as of 08/08/2019) Immunizations Name Administration Dates Next Due HEP [...] been in contact with No / Unsure 08/08/2019 10:49 AM CDT someone who was confirmed or suspected to have Coronavirus / COVID-19? documented as of this encounter Last Filed Vital Signs Vital Sign Reading Time Taken Comments Blood Pressure 146/85 08/08/2019 2:00 PM CDT Pulse 62 08/08/2019 2:00 PM CDT Temperature 36.7 C (98.1 F) 08/08/2019 10:53 AM CDT Respiratory Rate 16 08/08/2019 2:00 PM CDT Oxygen Saturation 98% 08/08/2019 2:00 PM CDT Inhaled Oxygen Concentration - - Weight 77.1 kg (170 lb) 08/08/2019 10:53 AM CDT Height - - Body Mass Index 32.12 07/28/2019 12:03 PM CDT documented in this encounter Discharge Instructions Severo Moreno, PAC - 08/08/2019Take benadryl of rash instead of reina AttachmentsThe following attachments cannot be sent through Care Everywhere. Abdominal Pain, Adult (Montenegrin)Hives (Urticaria) Understanding (Montenegrin) documented in this encounter Plan of Treatment Date Type Specialty Care Team Description 08/23/2019 Office Visit Orthopedic Surgery Yo Whitman MD [address] [place] [address] 10/02/2019 Appointment Radiology Bianka Palomino , [facility] [address] [address] Health Maintenance Due Date Last [...] Name Priority Date/Time Associated Diagnosis Comme nts CT ABDOMEN PELVIS WO STAT 08/08/2019 1:19 Abdominal pain, Results for this CONTRAST PM CDT unspecified procedure are i n abdominal location the resul ts section. XR CHEST 1 VW JOSE CARLOS 08/08/2019 12:10 Abdominal pain, Results for this PM CDT unspecified procedure are i n abdominal location the resul ts section. CBC WITH DIFFERENTIAL STAT 08/08/2019 11:28 Abdominal pain, Results for this AM CDT unspecified procedure are i n abdominal location the resul ts section. URINALYSIS STAT 08/08/2019 11:28 Abdominal pain, Results for this AM CDT unspecified procedure are i n abdominal location the resul ts section. CBC WITH DIFFERENTIAL Routine 08/08/2019 11:28 Abdominal pain, Results for this AM CDT unspecified procedure are i n abdominal location the resul ts section. COMP. METABOLIC PANEL STAT 08/08/2019 11:28 Abdominal pain, Results for this ([address]457) AM CDT unspecified procedure are i n abdominal location the resul ts section. TROPONIN I STAT 08/08/2019 11:28 Abdominal pain, Results for this AM CDT unspecified procedure are i n abdominal location the resul ts section. MAGNESIUM STAT 08/08/2019 11:28 Abdominal pain, Results for this AM CDT unspecified procedure are i n abdominal location the resul ts section. LIPASE STAT 08/08/2019 11:28 Abdominal pain, Results for this AM CDT unspecified procedure are i n abdominal location the resul ts section. EKG-12 LEAD Routine 08/08/2019 11:08 AM CDT NOTICE OF PRIVACY Routine 08/08/2019 10:49 PRACTICES AM CDT documented in this encounter Results CT ABDOMEN PELVIS WO CONTRAST (08/08/2019 1:19 PM CDT) Specimen Impressions Performed At Impression: PACS/VR/DOSE 1. No evidence of hydronephrosis or ne phrolithiasis. 2. Enlarged uterus with multiple calci fied fibroids. Recommend further evaluation with MRI. 3. Limited study in the absence of IV contrast. No e vidence of hyperdense gallstones, diverticulitis, or appendicitis. Narrative Performed At Exam: CT ABDOMEN PELVIS WO CONTRAST PACS/VR/DOSE Clinical History: Flank pain, stone dise ase suspected Comparison: None Findings: The visualized lung bases show minimal l inear atelectasis. There is no evidence of pleural or pericardial effus ion. Limited evaluation of the solid organs in the absence of IV contrast. The liver, gallbladder, spleen, pancreas, an d the adrenals appear normal. No evidence of hydronephrosis, nephrolit hiasis, focal renal lesions. No evidence of free fluid, air, or lymphadenopathy see n in the abdomen and pelvis. No evidence of dilated bowel loo ps, diverticulitis, or appendicitis. The uterus is enlarged and shows multiple calcified fi broids. It measures 12.6 x 8.0 cm. The fibroids are not clearly identified . The urinary bladder is partially distended and unremarkable. Mild degenerative changes are seen in the spine with n o evidence of focal lesions. Procedure Note [facility], Radiant Results Inft User - 2019 1:44 PM CDT Exam: CT ABDOMEN PELVIS WO CONTRAST Clinical History: Flank pain, stone dise ase suspected Comparison: None Findings: The visualized lung bases show minimal l inear atelectasis. There is no evidence of pleural or pericardial effus ion. Limited evaluation of the solid organs i n the absence of IV contrast. The liver, gallbladder, spleen, pancreas, an d the adrenals appear normal. No evidence of hydronephrosis, nephrolit hiasis, focal renal lesions. No evidence of free fluid, air, or lymph adenopathy seen in the abdomen and pelvis. No evidence of dilated bowel loo ps, diverticulitis, or appendicitis. The uterus is enlarged and shows multipl e calcified fibroids. It measures 12.6 x 8.0 cm. The fibroids are not joyce rly identified. The urinary bladder is partially distended and unremarkable. Mild degenerative changes are seen in th e spine with no evidence of focal lesions. IMPRESSION Impression: 1. No evidence of hydronephrosis or nep hrolithiasis. 2. Enlarged uterus with multiple calcif ied fibroids. Recommend further evaluation with MRI. 3. Limited study in the absence of IV c ontrast. No evidence of hyperdense gallstones, diverticulitis, or appendici tis. Performing Organization Address City/State/Zipcode Phone Number PACS/VR/DOSE XR CHEST 1 VW (08/08/2019 12:10 PM CDT) Specimen Narrative Performed At HISTORY: Abdominal pain. PACS/VR/DOSE TECHNIQUE: Portable AP erect view of the chest is obta ined. Comparison is made with 12/08/2016 study. FINDINGS: No acute pneumonia. No pneumot horax or pleural effusion or pulmonary congestion detected. Cardiac size is within upper normal limits. Multiple surgical clips are seen over th e lateral left upper chest, may have been utilized for breast surgery. 2 metallic clips are seen also projected over the right scapula. CONCLUSIONS: No signs of acute cardiopulmonary disease . Procedure Note [facility], Radiant Results Inft User - 2019 12:15 PM CDT HISTORY: Abdominal pain. TECHNIQUE: Portable AP erect view of the chest is obtained. Comparison is made with 12/08/2016 study. FINDINGS: No acute pneumonia. No pneumot horax or pleural effusion or pulmonary congestion detected. Cardiac s ize is within upper normal limits. Multiple surgical clips are seen over th e lateral left upper chest, may have been utilized for breast surgery. 2 metallic clips are seen also projected over the right scapula. CONCLUSIONS: No signs of acute cardiopul monary disease. Performing Organization Address City/State/Zipcode Phone Number PACS/VR/DOSE CBC WITH DIFFERENTIAL (08/08/2019 11:28 AM CDT) Pathologist Sig nature WBC 6.97 4.30 - 11.10 [facility] 10*3/L [facility] RBC 4.22 3.93 - 5.25 [facility] 10*6/L [facility] HGB 12.6 11.6 - 15.0 g/dL [facility] HCT 38.1 35.7 - 45.2 % [facility] MCV 90.3 80.6 - 95.5 fL [facility] MCH 29.9 25.9 - 32.8 pg [facility] MCHC 33.1 31.6 - 35.1 g/dL [facility] RDW-SD 44.3 39.0 - 49.9 fL [facility] RDW-CV 13.6 12.0 - 15.5 % [facility] PLT 320 166 - 358 [facility] 10*3/L [facility] MPV 10.0 9.5 - 12.9 fL [facility] NRBC/100 WBC 0.0 0.0 - 10.0 /100 [facility] WBCs [facility] NRBC x10^3 <0.01 10*3/L [facility] GRAN MAT (NEUT) % 58.5 % [facility] IMM GRAN % 0.30 % [facility] LYMPH % 33.0 % [facility] MONO % 7.0 % [facility] EOS % 0.6 % [facility] BASO % 0.6 % [facility] GRAN MAT x10^3(ANC) 4.08 1.88 - 7.09 [facility] 10*3/uL H[facility]ITAL [facility] IMM GRAN x10^3 <0.03 0.00 - 0.06 [facility] 10*3/uL [facility] LYMPH x10^3 2.30 1.32 - 3.29 [facility] 10*3/uL [facility] MONO x10^3 0.49 0.33 - 0.92 [facility] 10*3/uL [facility] EOS x10^3 0.04 0.03 - 0.39 [facility] 10*3/uL [facility] BASO x10^3 0.04 0.01 - 0.07 [facility] 10*3/uL [facility] Specimen Blood - VENOUS Performing Organization Address City/[facility] Phone Number [facility] CLIA: [id number], [address] [place] [address] MAGNESIUM (08/08/2019 11:28 AM CDT) Pathologist Sig nature MAGNESIUM 1.8 1.7 - 2.4 mg/dL [facility] Specimen Blood - VENOUS Performing Organization Address [facility] Phone Number [facility] CLIA: [id number], [address] [place] [address] LIPASE (08/08/2019 11:28 AM CDT) Pathologist Sig nature LIPASE 183 0 - 220 U/L [facility] Specimen Blood - VENOUS Performing Organization Address [facility] Phone Number [facility] CLIA: [id number], [address] [place] [address] URINALYSIS (08/08/2019 11:28 AM CDT) Pathologist Sig nature APPEARANCE Cloudy (A) Clear [facility] COLOR Berenice (A) Yellow [facility] PH 5.0 4.8 - 8.0 [facility] SP GRAVITY 1.025 1.003 - 1.030 [facility] GLU U QUAL Normal Normal [facility] BLOOD Negative Negative [facility] KETONES 5 mg/dL (A) Negative [facility] PROTEIN 100 mg/dL (A) Negative [facility] UROBILIN Normal Normal [facility] BILIRUBIN Negative Negative [facility] NITRITE Negative Negative [facility] LEUK NAYELY Negative Negative [facility] RBC/HPF 3 0 - 3 HPF [facility] WBC/HPF 4 0 - 5 HPF [facility] BACTERIA Few (A) Negative [facility] MUCOUS Marked (A) Negative LPF [facility] SQ EPITH 24 HPF [facility] CA OXALATE 31 (H) <=1 HPF [facility] Specimen Urine - URINE, CLEAN CATCH Performing Organization Address [facility] Phone Number [facility] CLIA: [id number], [address] [place] [address] TROPONIN I (08/08/2019 11:28 AM CDT) Pathologist Sig nature TROPONIN I <0.012 <=0.034 ng/mL [facility] Specimen Blood - VENOUS Narrative Performed At Equal or Less than 0.034 ng/ml---Normal [facility] Note: Cardiac troponin begins to rise 3-4 hours after the onset of ischemia. Repeat in 4-6 hours if the sample was drawn within 3-4 hours of the onset of the symptom and found normal. Between 0.035 and 0.120 ng/mL--- Borderline. Questionable myocardial injury or necros is Note: Serial measurement may be necessary to confirm or exclude the diagnosis of myocardial injury or necrosis; Clinical correlation (symptoms, EKGs, imaging studies, and others) required; Repeat in 4-6 hours if clinically indicated. Equal or Higher than 0.121 ng/mL---Abnormal. Myocardial Injury or Necrosis Likely Biotin has been reported to cause a negative bias, interpret results relative to patient's use of biotin. Performing Organization Address [facility] Phone Number [facility] CLIA: [id number], [address] [place], [place] [address] [address] [facility] COMP. METABOLIC PANEL (24296) (08/08/2019 11:28 AM CDT) [facility] NA 141 135 - 145 [facility] mmol/L [facility] K 3.8 3.5 - 5.0 [facility] mmol/L [facility] CL 105 98 - 108 mmol/L [facility] CO2 TOTAL 29 23 - 31 mmol/L [facility] AGAP 7 2 - 16 [facility] BUN 14 7 - 23 mg/dL [facility] GLUCOSE 126 (H) 70 - 110 mg/dL [facility] CREATININE 0.75 0.50 - 1.04 [facility] mg/dL [facility] TOTAL BILI 0.5 0.1 - 1.1 mg/dL [facility] CALCIUM 9.3 8.6 - 10.6 [facility] mg/dL [facility] T PROTEIN 7.7 6.3 - 8.2 g/dL [facility] ALBUMIN 4.4 3.5 - 5.0 g/dL [facility] ALK PHOS 105 34 - 122 U/L [facility] ALTv 24 5 - 35 U/L [facility] AST(SGOT) 34 13 - 40 U/L [facility] eGFR Calculation 81.8 mL/min/1.73m2 [facility] ([facility] LAB[facility]ORY Faroese) eGFR Calculation 99.1 mL/min/1.73m2 [facility] () [facility] Specimen Blood - VENOUS Narrative Performed At Association of Glomerular Filtration Rate (GFR) [facility] and Staging of Kidney Disease* + [...] tests). Performing Organization Address City/State/Zipcode Phone Number [facility] CLIA: [id number], [address] [place], [place] [address] documented in this encounter Visit Diagnoses Diagnosis LUQ pain - Primary Abdominal pain, left upper quadrant Abdominal pain, unspecified abdominal lo cation Allergic dermatitis Contact dermatitis and other eczema, due to unspecified cause Hives Urticaria, unspecified documented in this encounter Administered Medications Medication Order MAR Action Action Date Dose Rate Site diphenhydrAMINE (BENADRYL) Given 08/08/2019 12:33 PM CDT 25 mg injection 25 mg 25 mg, Slow IV Push, ONCE, 1 dose, 08/08/19 at 1245, STAT ketorolac (TORADOL) injection 30 mg Given 08/08/2019 12:33 PM CDT 30 mg 30 mg, Slow IV Push, ONCE, 1 dose, 08/08/19 at 1245, JOSE CARLOS, body team member approving Restricted medication: Severo CUEVA methylprednisolone sod succ (SOLU-MEDROL) Given 08/08/2019 12:33 PM CDT 125 mg injection 125 mg 125 mg, Slow IV Push, ONCE, 1 dose, 08/08/19 at 1245, STAT documented in this encounter documented as of this encounter"
--- OUTSIDE RECORDS SUMMARY | 2019-10-02 16:38 | XMS REPORT | Summary of Care ---
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 If I am a smoker, stop smoking ? Manage stress by identifying three way s to reduce stress ? [employer] (www.[facility]/[employer]) is an online tool that will allow me to review lab results and portions of my health record, and to communicate with healthcare providers as needed. If I do not have a [employer] account, I will discuss this wi th [...] Visit Orthopedic Surgery Yo Whitman MD [address] [place] [address] 10/02/2019 Appointment Radiology Bianka Palomino , [facility] [address] [place], [place] [address] Health Maintenance Due Date Last Done Comments [...] Name Priority Date/Time Associated Diagnosis Comme nts CONSENT/REFUSAL FOR Routine 08/08/2019 10:49 AM CDT DIAGNOSIS AND TREATMENT documented in this encounter Results Not on filedocumented in this encounter Insurance Payer Benefit Plan / Group Subscriber ID Effective Dates Phone Address Type CEASAR MCDONOUGH II [id number] 2019-Present HMO /PPO/POS documented as of this encounter
--- OUTSIDE RECORDS SUMMARY | 2019-10-02 16:39 | XMS REPORT | Summary of Care ---
:1970 Author Organization [facility] Address [address] [place] [address] Care Team Providers Name Role Phone Pcp, Does Not Have A Primary Care Provider Reason for Visit Reason Comments Results Encounter Details Date Type Department Care Team Description 09/16/2019 Telephone [facility]ESS [facility] Dedrick Damico MD Results 301 [facility] [address] [place] [address] [place], [place] [id number] Allergies No Known Allergiesdocumented as of this encounter (statuses as of 09/16/2019) Medications Medication Sig Dispensed Refills Start Date End Date Status citalopram 20 mg tablet TAKE 1 2 (ONE 0 03/13/2019 Active HALF) TABLET BY MOUTH ONCE DAILY FOR 7 DAYS THEN 1 TABLET DAILY THEREAFTER Blood Pressure Monitor Use as directed 1 Kit 0 05/22/2019 Active KitIndications: Essential hypertension enalapril 10 mg tablet Take by mouth 0 Active daily. naproxen (NAPROSYN) 500 Take 1 tablet by 30 tablet 0 0 Active mg tabletIndications: mouth 2 (two) LUQ pain times daily with meals. cyclobenzaprine 5 mg Take 1 tablet by 10 tablet 0 08/29/2019 Active tabletIndications: Pain mouth at in both lower bedtime. extremities fluticasone propionate Use 1 [place] in 1 Bottle 5 08/29/2019 Active 50 mcg/actuation nasal each nostril sprayIndications: daily. Allergic rhinitis due to pollen, unspecified seasonality SUMAtriptan 25 mg Evelio 1 tab po x1 9 tablet 1 08/29/2019 Active tabletIndications: for headache,may Migraine without status repeat after 2 migrainosus, not hours, max 200 intractable, unspecified mg/24 hours migraine type brompheniramine-pseudoep Take 5 mL by 200 mL 0 09/14/2019 0 Active hedrine-DM (BROMFED DM) mouth 4 (four) 0 2-30-10 mg/5 mL times daily as syrupIndications: Acute needed for non-recurrent frontal Congestion/Aller sinusitis gies for up to 10 days. methylPREDNISolone 4 mg Take by mouth 21 Each 0 09/14/2019 Active tabletsIndications: SEE-INSTRUCTIONS 0 Acute non-recurrent for 6 days. frontal sinusitis follow package directions documented as of this encounter (statuses as of 09/16/2019) Active Problems Patient Care Coordination Note Hypertension [...] ke My Hypertension Care Plan includes the betty barroso: ? 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 If I am a smoker, stop smoking ? Manage stress by identifying three way s to reduce stress ? [employer] ([email or web address]) is an online tool that will allow me to review lab results and portions of my health record, and to communicate with healthcare providers as needed. If I do not have a [employer] account, I will discuss this wi th [...] as of this encounter (statuses as of 09/16/2019) Immunizations Name Administration Dates Next Due HEP B, Adult Dosage 03/25/2017, 02/25/2017 Influenza Virus Vaccine Quad .5 mL IM 6+ 12/23/2018, 019 [place] Influenza Virus Vaccine Quad IM 3+ YRS 01/06/2017, 6, 03/01/2015 TDAP 04/25/2018 documented as of this encounter Social [...] been in contact with No / Unsure 09/14/2019 12:32 PM CDT someone who was confirmed or suspected to have Coronavirus / COVID-19? documented as of this encounter Last Filed Vital Signs Not on filedocumented in this encounter Plan of Treatment Date Type Specialty Care Team Description 09/27/2019 Appointment Radiology Itz Whitman MD [address] [place], [place] [address] 09/27/2019 Office Visit Orthopedic Surgery Yo Whitman MD [address] [place], [place] [address] 10/02/2019 Appointment Radiology Bianka Palomino , [employer] [address] [place] [address] [phone] Health Maintenance Due Date Last Done Comments Breast Cancer Screening 02/24/2018 02/24/2017 (Previously (MAMMOGRAM) completed), 04/01/2016 (Previously completed) INFLUENZA VACCINE (#1) 2019 12/23/2018, 04/25/2018, 01/06/2017, Additional history exists PNEUMOCOCCAL 0-64 YEARS 02/08/2020 Postpone d from COMBINED SERIES (1 of 3 - 1975 (Refused) PCV13) Depression Screening 05/02/2020 05/02/2019 Zoster Recombinant Vaccine 05/02/2020 Postp oned from (SHINGRIX) (1 of 2) 2019 ( Insurance / Financial) PAP SMEAR 10/14/2021 10/14/2018, 01/06/2017 (Declined), 06/07/2013, Additional history exists COLONOSCOPY 12/02/2023 12/01/2013 DTaP,Tdap,and Td Vaccines 04/25/2028 04/25/2018 (2 - Td) documented as of this encounter Results Not on filedocumented in this encounter Insurance Payer Benefit Plan / Group Subscriber ID Effective Dates Phone Address Type CEASAR MCDONOUGH II [id number] 2019-Present HMO /PPO/POS documented as of this encounter
--- OUTSIDE RECORDS SUMMARY | 2019-10-02 16:39 | XMS REPORT | Summary of Care ---
:1970 Author Organization [facility] - Health Address [address] [place] [id number] Care Team Providers Name Role Phone Pcp, Does Not Have A Primary Care Provider Reason for Visit Reason Comments Leg Pain x 2 weeks, bilateral DIZZY headaches MIGRAINE Encounter Details Date Type Department Care Team Description 08/29/2019 Office Visit [facility] Isidro Patten MD Pain in both lower extremities (Primary Dx); Pediatrics & Adult 2019 [facility] Waldemar rgic rhinitis due to pollen, unspecified seasonality; Primary Care- [place] [id number] Migraine without status migrainosus, not intractable, unspecified migraine type [address] [address] [place] [id number] Allergies No Known Allergiesdocumented as of this [...] lower bedtime. extremities fluticasone propionate Use 1 [place] in 1 Bottle 5 Active 50 mcg/actuation [...] ? 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 If I am a smoker, stop smoking ? Manage stress by identifying three way s to reduce stress ? [employer] ([email or web address]/[place] [employer]) is an online tool that will allow me to review lab results and portions of my health record, and to communicate with healthcare providers as needed. 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 Dispense:1 Bottle; Refill: [...] Fall risk assessed. Level of pain 0. [facility] [address] [place] [address] DENA GRIFFITH MA 08/29/2019 1:24 PM documented in this encounter Plan of Treatment Date Type Specialty Care Team Description 09/27/2019 Appointment Radiology Itz Whitman MD [address] [place] [address] [id number] 09/27/2019 Office Visit Orthopedic Surgery Yo Whitman MD [address] [place] [address] [id number] 10/02/2019 Appointment Radiology Bianka Palomino , [employer] [address] [place] [phone] Health Maintenance Due Date Last Done Comments [...]
--- OUTSIDE RECORDS SUMMARY | 2019-10-02 16:39 | XMS REPORT | Summary of Care ---
:1970 Author Organization [facility] - [facility] Address [address] [place] [id number] Care Team Providers Name Role Phone Pcp, Does Not Have A Primary Care Provider Reason for Visit Reason Comments MYALGIAS Headache Encounter Details Date Type Department Care Team Description 09/14/2019 Urgent Care [facility] Family Lacey Edmonds PA [address] [place] [phone] Suspected Covid-19 Virus Infection (Prim carmelita Dx); Medicine - [place] [address], Acute Care Clinic Acute non-recurrent frontal sinusitis; [address] [place] [address] Acute denise ntractable headache, [place] [phone] Allergies No Known Allergiesdocumented as of this encounter (statuses as of 09/14/2019) Medications Medication Sig Dispensed Refills Start End Status Date Date citalopram 20 mg TAKE 1 2 (ONE 0 Active tablet HALF) TABLET 9 BY MOUTH ONCE DAILY FOR 7 DAYS THEN 1 TABLET DAILY THEREAFTER Blood Pressure Monitor Use as 1 Kit 0 Active KitIndications: directed 0 Essential hypertension enalapril 10 mg tablet Take by mouth 0 Active daily. naproxen (NAPROSYN) Take 1 tablet 30 tablet 0 Active 500 mg by mouth 2 0 tabletIndications: LUQ (two) times pain daily with meals. cyclobenzaprine 5 mg Take 1 tablet 10 tablet 0 Active tabletIndications: by mouth at 0 Pain in both lower bedtime. extremities fluticasone propionate Use 1 [place] in 1 Bottle 5 Active 50 mcg/actuation nasal each nostril 0 sprayIndications: daily. Allergic rhinitis due to pollen, unspecified seasonality SUMAtriptan 25 mg Evelio 1 tab po 9 tablet 1 Active tabletIndications: x1 for 0 Migraine without headache,may status migrainosus, repeat after 2 not intractable, hours, max 200 unspecified migraine mg/24 hours type brompheniramine-pseudo Take 5 mL by 200 mL 0 09/12 2 Active ephedrine-DM (BROMFED mouth 4 (four) 0 020 DM) 2-30-10 mg/5 mL times daily as syrupIndications: needed for Acute non-recurrent Congestion/All frontal sinusitis ergies for up to 10 days. methylPREDNISolone 4 Take by mouth 21 Each 0 8/2 Active mg tabletsIndications: SEE-INSTRUCTIO 0 02 0 Acute non-recurrent NS for 6 days. frontal sinusitis follow package directions Cetirizine 10 mg Take by 0 Dis continued capsuleIndications: mouth. 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 If I am a smoker, stop smoking ? Manage stress by identifying three way s to reduce stress ? [employer] ([email or web address]/[email or web address]) is an online tool that will allow me to review lab results and portions of my health record, and to communicate with healthcare providers as needed. If I do not have a [employer] account, I will discuss this wi th [...] as of this encounter (statuses as of 09/14/2019) Immunizations Name Administration Dates Next Due HEP [...] Sign Reading Time Taken Comments Blood Pressure 131/80 09/14/2019 12:46 PM CDT Pulse 76 09/14/2019 12:43 PM CDT Temperature 36.8 C (98.3 F) 09/14/2019 12:43 PM CDT Respiratory Rate 18 09/14/2019 12:43 PM CDT Oxygen Saturation 98% 09/14/2019 12:43 PM CDT Inhaled Oxygen Concentration - - Weight 73 kg (161 lb) 09/14/2019 12:43 PM CDT Height 152.4 cm (5') 09/14/2019 12:43 PM CDT Body Mass Index 31.44 09/14/2019 12:43 PM CDT documented in this encounter Patient Instructions Patient InstructionsKetty Mendez FNP - 09/14/2019 1:00 PM CDT Patient Education Problemas de los senos paranasales No es frecuente pensar en los senos paranasales hasta que se presenta algn problema. Por ejemplo, un da usted se da cuenta de que no puede oler la comida que se est preparando. O descubre que a menudo tiene marta de dominga o dificultad para respirar por la nariz. Sntomas de los problemas de los senos paranasales Los problemas de los senos paranasales pueden provocar sntomas molestos. Puede que la nariz le gotee constantemente. O puede tener problemas para dormir por la noche. Incluso puede perder el sentido del olfato. Otros sntomas son los siguientes: Congestin nasal Sensacin de llenura en los odos Secrecin tyson, amarilla o con araseli de la nariz Secrecin en la garganta Mal aliento Dificultad para sentir el sabor de la comida Frecuentes marta de dominga Dolor en la main Tos Cuando los senos estn obstruidos Si hay algn bloqueo en los conductos de la nariz o los senos, el moco no se puede drenar. Los senos paranasales podran infectarse. Los resfriados hacen que el recubrimiento de la nariz y los senos se hinche y produzca jhon mayor cantidad de mucosidad. Si la mucosidad se acumula, puede ocasionar jhon infeccin ms grave. Las alergias irritan los cornetes y otros tejidos. [place] provoca jhon hinchazn que puede produciruna obstruccin. Con el tiempo, esta irritacin tambin puede ocasionar la formacin de sacos detejido hinchado (plipos). Pueden formarse plipos tanto en los senos leda en la nariz. Los plipos pueden aumentar de tamao al punto de tapar los conductos nasales e impedir el drenaje. Un tabique desviado (torcido) puede obstruir los conductos nasales. [place] a menudo es el resultadode jhon lesin. [id number] [employer] [address] [place] [id number]. Todos los derechos reservados. Esta informacin no pretende sustituir la atencin mdica profesional. Slo melgar mdico puede diagnosticar y tratar un problema de tracy. Patient Education Dolor de dominga por sinusitis Los senos paranasales son cavidades llenas de aire en los huesos de la main. Se conectan con la parte interna de la nariz. La sinusitis es jhon inflamacin del tejido que recubre la cavidad del seno paranasal. La inflamacin de los senos paranasales se puede producir lloyd un resfriado o jhon rinitis alrgica (alergias al polen y otras partculas en el aire). Puede provocar sntomas de congestin y plenitud sinusal, y quizs jhon ligera fiebre. Por lo general, existe infeccin cuando tambinhay dolor facial o de dominga. Adems, puede christina secrecin tyson o amarillenta de la nariz o en la parte posterior de la garganta (goteo posnasal). Es posible que le receten antibiticos para tratar esta afeccin. El dolor de dominga por sinusitis puede causar dolor en diferentes partes del cuerpo, segn el seno que est infectado. Puede christina dolor en las sienes, la frente, la parte superior de la dominga, detrs o alrededor de los ojos, en los pmulos o en los dientes superiores. Notar un poco de alivio cambiando de posicin. Pruebe sentndose con la espalda recta o acostarse. Cuidados en el hogar Estas pautas le ayudarn a cuidarse en el hogar: Tamela acacia agua, t caliente y otros lquidos para mantenerse mae hidratado. [place] diluye el moco y favorece la secrecin nasal. Aplique calor a las zonas dolorosas de la main. Use jhon toalla empapada en inaja. O, de pie en la ducha, dirija el chorro caliente hacia la main. Esta es jhon buena forma de inhalar vapor de agua tibia y calentar la main simultneamente. Cbrase la boca y la nariz con las markus para poder respirar. Use un vaporizador de garret fra de noche. Consuma caramelos duros de menta, mentol o eucaliptos lloyd el da. Puede utilizar un expectorante de venta sandy que contenga guaifenesina para ayudar a diluir la mucosidad. Tambin ayuda a estimular la descongestin de los senos paranasales. Puede utilizar descongestivos de venta sin receta a menos que le hayan recetado un medicamento similar. Los aerosoles nasales o gotas son los que ms rpido actan. Use alguno que contenga fenilefrina u oximetazolina. Sople la nariz con cuidado para eliminar el moco. Luego, aplique el aerosol o las gotas. No utilice estos medicamentos con mayor frecuencia que la indicada en la etiqueta, ni lloyd ms de mattie hyde. [place] puede empeorar los sntomas. Los aerosoles nasales o las gotas recetadas por melgar proveedor de atencin mdica generalmente no tienen estos lmites. Consulte con melgar proveedor o farmacutico. Tambin puede usar tabletas que tengan pseudoefedrina. Los efectos secundarios de los descongestivos orales tienden a ser peores que los de los aerosoles nasales o las gotas y pueden impedir que los utilice. Muchos medicamentos para la sinusitis combinan ingredientes, lo que puedeaumentar los efectos secundarios. Adems, si est tomando un medicamento combinado con otro medicamento, asegrese de no alfredito jhon dosis doble de algo por error. Jace las etiquetas o pida ayuda al farmacutico. Si tiene presin arterial mendoza, enfermedad cardaca, glaucoma o problemas de prstata, consulte con melgar proveedor antes de utilizar descongestivos. Los antihistamnicos podran resultar tiles si melgar sinusitis es de origen alrgico. Puede alfredito clorfeniramina y difenhidramina de venta sandy, daniel estas pueden causarle somnolencia. No las tome si tiene glaucoma o dificultades al orinar debido a jhon prstata agrandada. Los antihistamnicos de venta sandy que contengan loratadina y cetirizina causan menos somnolencia. Estos pueden ser jhon mejor opcin para uso diario. Cuando la sinusitis se debe a alergias, un enjuague nasal de solucin salina puede aliviarla. Lasolucin salina reduce la hinchazn y limpia el exceso de moco. Lo que permite que los senos nasales drenen. En la mayora de las farmacias se venden kits ya listos. Los kits tienen paquetes premezclados de danny y un dispositivo de irrigacin. Si le recetaron antibiticos para tratar jhon infeccin aguda de los senos paranasales, consulte a melgar proveedor antes de usar un enjuague nasal para morena sies seguro para usted. Puede usar medicamentos de venta sandy para controlar el dolor y la fiebre, a menos que le hayan recetado otro analgsico. Consulte a melgar proveedor antes de usar ibuprofeno o paracetamol si tiene jhon enfermedad crnica del hgado o de los riones. Adems, consulte con melgar proveedor si acosta sufridode lceras estomacales. Ninguna persona cedric de 19aos debe consumir aspirina, a menos que lo indique el proveedor. Puede causar jhon afeccin que puede poner en riesgo la jose de la persona, llamada sndrome de John. Si le recetaron antibiticos, complete el tratamiento, aunque se sienta mejor despus de unos hyde. Atencin de seguimiento Programe jhon visita de seguimiento con melgar proveedor de atencin mdica o segn le indicaron si los sntomas no mejoran en jhon semana. Llame al 911 Llame al 911 si presenta cualquiera de estos sntomas: Somnolencia inusual o confusin Hinchazn de la frente o los prpados Problemas de visin, tales leda visin borrosa o doble Convulsiones Sensacin de muerte Dificultades para respirar Sensacin de mareo Prdida del conocimiento o desmayos Cundo debe buscar atencin mdica Llame a melgar proveedor de atencin mdica de inmediato si presenta alguno de los siguientes sntomas: Dolor de dominga o dolor en los senos paranasales que empeora Rigidez en el xander Fiebre de 100.4F (38C) o ms mendoza, o segn le indique melgar proveedor de atencin mdica. Sangrado de la nariz o la garganta [id number] [employer]. [address] [place] [id number]. Todos los derechos reservados. Esta informacin no pretende sustituir la atencin mdica profesional. Slo melgar mdico puede diagnosticar y tratar un problema de tracy. Patient Education Dolor de dominga por sinusitis Los senos paranasales son cavidades llenas de aire en los huesos de la main. Se conectan con la parte interna de la nariz. La sinusitis es jhon inflamacin del tejido que recubre la cavidad del seno paranasal. La inflamacin de los senos paranasales se puede producir lloyd un resfriado o jhon rinitis alrgica (alergias al polen y otras partculas en el aire). Puede provocar sntomas de congestin y plenitud sinusal, y quizs jhon ligera fiebre. Por lo general, existe infeccin cuando tambinhay dolor facial o de dominga. Adems, puede christina secrecin tyson o amarillenta de la nariz o en la parte posterior de la garganta (goteo posnasal). Es posible que le receten antibiticos para tratar esta afeccin. El dolor de dominga por sinusitis puede causar dolor en diferentes partes del cuerpo, segn el seno que est infectado. Puede christina dolor en las sienes, la frente, la parte superior de la dominga, detrs o alrededor de los ojos, en los pmulos o en los dientes superiores. Notar un poco de alivio cambiando de posicin. Pruebe sentndose con la espalda recta o acostarse. Cuidados en el hogar Estas pautas le ayudarn a cuidarse en el hogar: Tamela acacia agua, t caliente y otros lquidos para mantenerse mae hidratado. [place] diluye el moco y favorece la secrecin nasal. Aplique calor a las zonas dolorosas de la main. Use jhon toalla empapada en inaja. O, de pie en la ducha, dirija el chorro caliente hacia la main. Esta es jhon buena forma de inhalar vapor de agua tibia y calentar la main simultneamente. Cbrase la boca y la nariz con las markus para poder respirar. Use un vaporizador de garret fra de noche. Consuma caramelos duros de menta, mentol o eucaliptos lloyd el da. Puede utilizar un expectorante de venta sandy que contenga guaifenesina para ayudar a diluir la mucosidad. Tambin ayuda a estimular la descongestin de los senos paranasales. Puede utilizar descongestivos de venta sin receta a menos que le hayan recetado un medicamento similar. Los aerosoles nasales o gotas son los que ms rpido actan. Use alguno que contenga fenilefrina u oximetazolina. Sople la nariz con cuidado para eliminar el moco. Luego, aplique el aerosol o las gotas. No utilice estos medicamentos con mayor frecuencia que la indicada en la etiqueta, ni lloyd ms de mattie hyde. [place] puede empeorar los sntomas. Los aerosoles nasales o las gotas recetadas por melgar proveedor de atencin mdica generalmente no tienen estos lmites. Consulte con melgar proveedor o farmacutico. Tambin puede usar tabletas que tengan pseudoefedrina. Los efectos secundarios de los descongestivos orales tienden a ser peores que los de los aerosoles nasales o las gotas y pueden impedir que los utilice. Muchos medicamentos para la sinusitis combinan ingredientes, lo que puedeaumentar los efectos secundarios. Adems, si est tomando un medicamento combinado con otro medicamento, asegrese de no alfredito jhon dosis doble de algo por error. Jace las etiquetas o pida ayuda al farmacutico. Si tiene presin arterial mendoza, enfermedad cardaca, glaucoma o problemas de prstata, consulte con melgar proveedor antes de utilizar descongestivos. Los antihistamnicos podran resultar tiles si melgar sinusitis es de origen alrgico. Puede alfredito clorfeniramina y difenhidramina de venta sandy, daniel estas pueden causarle somnolencia. No las tome si tiene glaucoma o dificultades al orinar debido a jhon prstata agrandada. Los antihistamnicos de venta sandy que contengan loratadina y cetirizina causan menos somnolencia. Estos pueden ser jhon mejor opcin para uso diario. Cuando la sinusitis se debe a alergias, un enjuague nasal de solucin salina puede aliviarla. Lasolucin salina reduce la hinchazn y limpia el exceso de moco. Lo que permite que los senos nasales drenen. En la mayora de las farmacias se venden kits ya listos. Los kits tienen paquetes premezclados de danny y un dispositivo de irrigacin. Si le recetaron antibiticos para tratar jhon infeccin aguda de los senos paranasales, consulte a melgar proveedor antes de usar un enjuague nasal para morena sies seguro para usted. Puede usar medicamentos de venta sandy para controlar el dolor y la fiebre, a menos que le hayan recetado otro analgsico. Consulte a melgar proveedor antes de usar ibuprofeno o paracetamol si tiene jhon enfermedad crnica del hgado o de los riones. Adems, consulte con melgar proveedor si acosta sufridode lceras estomacales. Ninguna persona cedric de 19aos debe consumir aspirina, a menos que lo indique el proveedor. Puede causar jhno afeccin que puede poner en riesgo la jose de la persona, llamada sndrome de John. Si le recetaron antibiticos, complete el tratamiento, aunque se sienta mejor despus de unos hyde. Atencin de seguimiento Programe jhon visita de seguimiento con melgar proveedor de atencin mdica o segn le indicaron si los sntomas no mejoran en jhon semana. Llame al Llame al si presenta cualquiera de estos sntomas: Somnolencia inusual o confusin Hinchazn de la frente o los prpados Problemas de visin, tales leda visin borrosa o doble Convulsiones Sensacin de muerte Dificultades para respirar Sensacin de mareo Prdida del conocimiento o desmayos Cundo debe buscar atencin mdica Llame a melgar proveedor de atencin mdica de inmediato si presenta alguno de los siguientes sntomas: Dolor de dominga o dolor en los senos paranasales que empeora Rigidez en el xander Fiebre de 100.4F (38C) o ms mendoza, o segn le indique melgar proveedor de atencin mdica. Sangrado de la nariz o la garganta [id number] [employer] [address] [place] [id number]. Todos los derechos reservados. Esta informacin no pretende sustituir la atencin mdica profesional. Slo melgar mdico puede diagnosticar y tratar un problema de tracy. documented in this encounter Progress Notes Ketty Mendez FNP - 09/14/2019 1:00 PM CDT Cc: Chief Complaint Patient presents with MYALGIAS Headache Bianka Montelongo is a 49 year old female. For about 4 days patient has had a headache, feels like pressure behind the eyes. She has nasal congestion and sinus pressure. Sinus Problem Pain details: Location: Maxillary and frontal Quality: Pressure Severity: Moderate Duration: 4 days Timing: Constant Duration: 4 days Progression: Unchanged Chronicity: New Context: not allergies Relieved by: Nothing Worsened by: Nothing Ineffective treatments: None tried Associated symptoms: congestion and headaches Associated symptoms: no chest pain, no chills, no cough, no fever, no shortness of breath and no wheezing Headaches: Severity: Moderate Onset quality: Gradual Duration: 4 days Timing: Intermittent Progression: Unchanged Chronicity: New Allergies Bianka has No Known Allergies. Medications Outpatient Medications Prior to Visit Medication Sig Dispense Refill cyclobenzaprine 5 mg tablet Take 1 tablet by mouth at bedtime. 10 tablet 0 fluticasone propionate 50 mcg/actuation nasal spray Use 1 [place] in each nostril daily. 1 Bottle 5 SUMAtriptan 25 mg tablet Evelio 1 tab po x1 for headache,may repeat after 2 hours, max 200 mg/24 hours 9 tablet 1 naproxen (NAPROSYN) 500 mg tablet Take 1 tablet by mouth 2 (two) times daily with meals. 30 tablet 0 Cetirizine 10 mg capsule Take by mouth. enalapril 10 mg tablet Take by mouth daily. 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 Negative for chills and fever. HENT: Positive for congestion and sinus pressure. Eyes: Negative. Respiratory: Negative. Negative for apnea, cough, choking, chest tightness, shortness of breath andwheezing. Cardiovascular: Negative. Negative for chest pain, palpitations and leg swelling. Gastrointestinal: Negative. Skin: Negative. Neurological: Positive for headaches. Endocrine: Endocrine negative Vital Signs BP 131/80 | Pulse 76 | Temp 36.8 C (98.3 F) | Resp 18 | Ht 5' (1.524 m) | Wt 161 lb (73 kg) | SpO2 98% | BMI 31.44 kg/m Physical Exam Constitutional: She is oriented to person, place, and time. She appears well- developed and well-nourished. HENT: Head: Normocephalic. Right Ear: Hearing, tympanic membrane, external ear and ear canal normal. Left Ear: Hearing, tympanic membrane, external ear and ear canal normal. Nose: Rhinorrhea present. Right sinus exhibits frontal sinus tenderness. Right sinus exhibits no maxillary sinus tenderness. Left sinus exhibits frontal sinus tenderness. Left sinus exhibits no maxillary sinus tenderness. Mouth/Throat: Uvula is midline, oropharynx [...] No rash noted. No erythema. No pallor. Nursing note and vitals reviewed. Assessment/Plan 1. Sinusitis with headache: medrol dose pack and bromfed given for symptoms relief. covid test done pending result, In the meantime, quarantine in place, treat symptoms with OTC meds, Tylenol as needed but no NSAIDs. Stay in quarantine until symptoms subsides, plus 3 days afterwards or until you hear otherwise. Follow up with your PCP as needed, and if with worsening of symptoms, any respiratory distress, go to the ER. Clinical references for Homecare instructions reviewed and copy given. Plan of care, desired health behaviors, goals, and medication discussed with patient. Education resources provided and reviewed with AVS. Patient/guardian/family verbalized understanding & agrees to plan of care. This visit did not involve counseling and coordination that comprised more than 50% of the visit time. If applicable, the [facility] database was accessed to review any controlled substance prescription claims data. The [employer] prescription claims data in [place] was reviewed to assess patient compliance with the medication treatment plan. Sneha Veras MA - 09/14/2019 1:00 PM CDT Bianka Montelongo is a 49 year old female Chief Complaint Patient presents with Other joint pain Vitals: 09/14/19 1243 BP: (!) 145/81 Pulse: 76 Resp: 18 Temp: 36.8 C (98.3 F) SpO2: 98% Weight: 161 lb (73 kg) Height: 5' (1.524 m) [facility] [address] [place] [address] All Vitals taken, allergies and all medications reviewed, fall risk assessed. Pain level 0. Sneha Shearer MA Patient educated on plan of care for visit, swabbing technique, risks and benefits of test and length of time to receive results. Verbal consent obtained to perform test. CDC Fact Sheet for Patients nCoV Diagnostic Panel dated 05/28/2019 providedcovid test run documented in this encounter Plan of Treatment Date Type Specialty Care Team Description 09/27/2019 Appointment Radiology Itz Whitman MD [address] [place], [place] [id number] 09/27/2019 Office Visit Orthopedic Surgery Yo Whitman MD [address], [place] [id number] 10/02/2019 Appointment Radiology Bianka Palomino FNP [address] [id number] Name Type Priority Associated Diagnoses Order S ashleigh COVID-19 (PCR MOLECULAR LAB Routine Suspected Covid-1 9 Virus Expected: 09/14/2019, TESTING) Infection Expires: 2020 Health Maintenance Due Date Last Done Comments [...] filedocumented in this encounter Visit Diagnoses Diagnosis Suspected Covid-19 Virus Infection - Priyanka chong Acute non-recurrent frontal sinusitis Acute nonintractable headache, unspecifi ed headache type documented in this encounter documented as of this encounter"
--- OUTSIDE RECORDS SUMMARY | 2019-10-02 16:40 | XMS REPORT | Summary of Care ---
:1970 Author Organization [facility] Address [address] [place] [id number] Care Team Providers Name Role Phone Pcp, Does Not Have A Primary Care Provider Reason for Referral Radiology Services (Routine) Status Reason Specialty Diagnoses / Referred By Referred To Procedures Contact Contact New Request Diagnostic Diagnoses Hand arthritis Itz Whitman, Radiology Procedures XR HAND 3+ VW BILATERAL [address] [place] [id number] Encounter Details Date Type Department Care Team Description 09/26/[address] [facility] Nicole Hameed Hand a rthritis Orthopaedic Surgery- (Primary Dx) [address] [place] [id number] [place], [place] [phone] Allergies No Known Allergiesdocumented as of this encounter (statuses as of 09/26/2019) Medications Medication Sig Dispensed Refills Start Date [...] 0 08/29/2019 Active tabletIndications: Pain mouth at bedtime. in both lower extremities fluticasone propionate Use 1 [place] in 1 Bottle 5 08/29/2019 Active 50 mcg/actuation nasal each nostril sprayIndications: daily. 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 If I am a smoker, stop smoking ? Manage stress by identifying three way s to reduce stress ? [employer] ([email or web address]/[employer]) is an online tool that will allow me to review lab results and portions of my health record, and to communicate with healthcare providers as needed. If I do not have a [employer] account, I will discuss this wi th [...] as of this encounter (statuses as of 09/26/2019) Immunizations Name Administration Dates Next Due HEP [...] 09/27/2019 Appointment Radiology Itz Whitman MD [address] [place] [address] 09/27/2019 Office Visit Orthopedic Surgery Yo Whitman MD [address], [place] [id number] 10/02/2019 Appointment Radiology Bianka Palomino , CLAY DRY PRESS OPERATOR [address] [place] [id number] Name Type Priority Associated Diagnoses Order S chedule XR HAND 3+ VW BILATERAL IMAGING Routine Hand arthritis Ex pected: 09/26/2019, Expires: 2020 Health Maintenance Due Date Last [...] Unspecified arthropathy, hand documented in this encounter Insurance Payer Benefit Plan / Group Subscriber ID Effective Dates Phone Address Type CEASAR MCDONOUGH II [id number] 2019-Present HMO /PPO/POS documented as of this encounter
[2019-10-03 03:05] VITALS: BP 152/80; TEMP 97.8; O2SAT 100
== END 2019-10-02 16:37 | disposition home or self-care (01) ==
LOC: ER 12:54
DX: U07.1 COVID-19 (principal); N39.0 Urinary tract infection, site not specified
CPT/HCPCS: 87088; 87086; 71045; 99283; U0001; 81003; 81015

== ENCOUNTER 2019-10-06 18:22 | Emergency (ER) | payer OTHER ==
--- OUTSIDE RECORDS SUMMARY | 2019-10-06 18:24 | XMS REPORT | Continuity of Care Document ---
:1970 Author Organization [facility] t Address [address] [place] [address] Care Team Providers Name Role Phone Kori Hameed MD Attending Clinician Mookie JARAMILLO, H Attending Clinician Po, [facility] Attending Clinician Unavailable Sandor JARAMILLO, Y [...] Facility Department ID 2019-09-26 2019-09-26 Abstract Zari [facility] [id number] 00:00:00 00:00:00 Nicole SPECIALTY [id number] [facility] [id number] [place] AT [phone] TRAVIS Ratliff [facility] 2019-09-16 2019-09-16 Telephone ASTER Damico [id number] 00:00:00 00:00:00 Dedrick RUSSELL [id number] [facility] [id number] [id number] 2019-09-14 2019-09-14 Urgent Pob1, Acute [facility] [id number] 12:29:37 12:49:37 [facility] [id number] [place] [id number] [place] [phone] [facility] [address] 2019-08-29 2019-08-29 Office PattenIsidro crawley [id number] 13:15:20 16:27:02 Visit Y Pediatric [id number] s and [id number] Adult [phone] Primary [facility] Results Test Description Test Time Test Comments Results Result [facility] e Comments BREAST ULTRASOUND 2018-07-14 - DIAG MAMM BILATERAL BILATERAL 1 YISSEL CAD DIGITALBILATERAL 15:30:02 DIGITAL DIAGNOSTIC MAMMOGRAM 3D/2D WITH CAD: 08/02/2018CLINICAL: Previous breast cancer. Digital breast tomosynthesis was performed in addition to routine CC and MLO views. Current mammographic images were evaluated by either a [employer] M-Vu or a [employer] ImageChecker CAD (computer aided detection system). Comparison is made to exams dated 07/30/2017 mammogram, 06/24/2016 mammogram, and 03/25/2015 mammogram - [facility] There are scattered fibroglandular tissues [...] 06/24/2016 mammogram, and 03/25/2015 mammogram - [facility]-. Real-time ultrasound of both breasts [...] 15:30:02 Attending Technologist: Galina Vela FW, [facility]-Imaging Technologist: Lissy Mcclellan FW, [facility]-letter sent: BIRADS 1-2 Combo FU Letter Mammogram BI-RADS: 0 Indeterminate Ultrasound BI-RADS: 1 Negative DIAG MAMM 2018-07-14 - DIAG MAMM BILATERAL BILATERAL YISSEL 1 YISSEL CAD DIGITALBILATERAL CAD DIGITAL 15:30:02 DIGITAL DIAGNOSTIC MAMMOGRAM 3D/2D WITH CAD: 08/02/2018CLINICAL: Previous breast cancer. Digital breast tomosynthesis was performed in addition to routine CC and MLO views. Current mammographic images were evaluated by either a App[employer]ity M-Vu or a [employer] ImageChecker CAD (computer aided detection system). Comparison is made to exams dated 07/30/2017 mammogram, 06/24/2016 mammogram, and 03/25/2015 mammogram - [facility]-. There are scattered fibroglandular tissues [...] 06/24/2016 mammogram, and 03/25/2015 [facility]. Real-time ultrasound of both breasts and both [...] 15:30:02 Attending Technologist: Galina Vela , [facility] CENTERImaging Technologist: Lissy Mcclellan , [facility]ENTERletter sent: BIRADS 1-2 Combo FU Letter Mammogram BI-RADS: 0 Indeterminate Ultrasound BI-RADS: 1 Negative
[2019-10-06] MEDS ORDERED: HYDROCODONE/CHLORPHEN 5 ML/OSYR ONE (21:43)
[2019-10-06] MEDS ORDERED: AZITHROMYCIN 250 MG TAB ONE (21:43)
--- NOTE | 2019-10-06 21:43 | ER ---
Nurse's Notes [facility] Name: Bianka Montelongo Age: 49 yrs Sex: Female : 1970 Arrival Date: 10/06/2019 Time: 18:30 Bed 8 Private MD: Diagnosis: SARS-associated coronavirus as the cause of diseases classified elsewhere;Acute upper respiratory infection, unspecified Presentation: 10/05 18:44 Chief complaint: Patient states: headache, body aches, abd pain and vomiting. Pt ss reports she was recently tested positive for COVID on the . Coronavirus screen: Patient reports a cough. Patient denies shortness of breath or difficulty breathing. Patient reports a measured and/or subjective temperature greater than 100.4F. Patient denies travel on a cruise ship or to a country the [facility] currently lists as an affected area. Ebola Screen: Patient denies exposure to infectious person. Patient denies travel to an Ebola-affected area in the 21 days before illness onset. 18:44 Method Of Arrival: Ambulatory ss 18:46 Initial Sepsis Screen: Does the patient meet any 2 criteria? No. Patient's initial ss sepsis screen is negative. Does the patient have a suspected source of infection? No. Patient's initial sepsis screen is negative. Risk Assessment: Do you want to hurt yourself or someone else? Patient reports no desire to harm self or others. Onset of symptoms is unknown. 18:46 Acuity: AMY 3 ss PUMP RUNNER: 21:59 LMP N/A - Irregular menses jd3 Historical: - Allergies: 18:50 No Known Allergies; ss - PMHx: 18:50 breast cancer; Hypertension; SEASON ALLERGIES; ss - PSHx: 18:50 ovary removal, unknown which side; ss - Immunization history:: Adult Immunizations up to date, Adult Immunizations up to date. - Social history:: Smoking status: Patient denies any tobacco usage or history of. Smoking status: Patient denies any tobacco usage or history of. Screenin:30 Abuse screen: Denies threats or abuse. Nutritional screening: No deficits noted. jd3 Tuberculosis screening: No symptoms or risk factors identified. Fall Risk Ambulatory Aid- None/Bed Rest/Nurse Assist (0 pts). Gait- Normal/Bed Rest/Wheelchair (0 pts) Mental Status- Oriented to own ability (0 pts). Total Servin Fall Scale indicates No Risk (0-24 pts). Assessment: 20:29 General: Appears in no apparent distress. uncomfortable, Behavior is calm, cooperative, jd3 appropriate for age. Pain: Complains of pain in chest and abdomen Quality of pain is described as aching. Neuro: Level of Consciousness is awake, alert, obeys commands, Oriented to person, place, time, situation. Cardiovascular: Heart tones present Capillary refill < 3 seconds Patient's skin is warm and dry. Respiratory: Reports shortness of breath Airway is patent Respiratory effort is even, unlabored, Respiratory pattern is regular, symmetrical, Breath sounds are clear bilaterally. GI: Abdomen is round non-distended, Bowel sounds present X 4 quads. Abd is soft and non tender X 4 quads. Reports nausea, vomiting. : No signs and/or symptoms were reported regarding the genitourinary system. EENT: No signs and/or symptoms were reported regarding the EENT system. Derm: Skin is intact, Skin is dry, Skin is normal, Skin temperature is warm. Musculoskeletal: Circulation, motion, and sensation intact. Range of motion: intact in all extremities. 21:58 Reassessment: Patient appears in no apparent distress at this time. Patient and/or jd3 family updated on plan of care and expected duration. Pain level reassessed. Patient is alert, oriented x 3, equal unlabored respirations, skin warm/dry/pink. Vital Signs: 18:44 BP 140 / 93; Pulse 92; Resp 15; Temp 98.3(TE); Pulse Ox 96% on R/A; Weight 72.57 kg; ss 21:58 BP 150 / 89; Pulse 80; Resp 16 S; Pulse Ox 97% on R/A; jd3 ED Course: 18:30 Patient arrived in ED. as 18:46 Triage completed. ss 18:50 Arm band placed on right wrist. ss 20:25 Jo Tomlinson FNP-C is PHCP. snw 20:25 Ant Butts MD is Attending Physician. snw 20:29 Alirio Candelario RN is Primary Nurse. jd3 20:31 Patient has correct armband on for positive identification. Bed in low position. Call jd3 light in reach. Side rails up X 1. Pulse ox on. NIBP on. 21:03 Chest Single View XRAY In Process Unspecified. EDMS 21:58 Assist provider with bone marrow aspiration. Patient did not have IV access during this j emergency room visit. Administered Medications: 21:57 Drug: Zithromax 500 mg Route: PO; jd3 21:57 Follow up: Response: Medication administered at discharge. jd3 21:57 Drug: Tussionex Pennkinetic ER 5 ml Route: PO; jd3 21:58 Follow up: Response: Medication administered at discharge. j Outcome: 21:42 Discharge ordered by . snw 21:59 Discharged to home ambulatory, with family. jd3 21:59 Condition: stable 21:59 Discharge instructions given to patient, Instructed on discharge instructions, follow up and referral plans. medication usage, Demonstrated understanding of instructions, follow-up care, medications, Prescriptions given X 3. 21:59 Patient left the ED. jd3 Signatures: Dispatcher [employer] EDMS Jo Tomlinson, [employer] INSTRUCTOR-Evelin Jhaveri Shelby, RN RN Alirio Candelario RN RN j
--- NOTE | 2019-10-06 21:43 | EDPHYS ---
Physician Documentation [facility] Name: Bianka Montelongo Age: 49 yrs Sex: Female : 1970 Arrival Date: 10/06/2019 Time: 18:30 Bed 8 Private MD: ED Physician Ant Butts HPI: 10/05 20:56 This 49 yrs old Female presents to ER via Ambulatory with complaints of snw Weakness. 20:56 The patient or guardian reports cough, flu symptoms. Onset: The symptoms/episode snw began/occurred suddenly, 4 day(s) ago, and became persistent. Modifying factors: The symptoms are alleviated by nothing. Associated signs and symptoms: Pertinent positives: chest pain, nausea, sore throat, vomiting. Severity of symptoms: At their worst the symptoms were moderate. It is unknown whether or not the patient has had similar symptoms in the past. The patient has been recently seen by a physician: pt states she was tested for CoVid 19 and it came back positive. ERP PM: 21:59 LMP N/A - Irregular menses jd3 Historical: - Allergies: 18:50 No Known Allergies; ss - PMHx: 18:50 breast cancer; Hypertension; SEASON ALLERGIES; ss - PSHx: 18:50 ovary removal, unknown which side; ss - Immunization history:: Adult Immunizations up to date, Adult Immunizations up to date. - Social history:: Smoking status: Patient denies any tobacco usage or history of. Smoking status: Patient denies any tobacco usage or history of. ROS: 20:55 Eyes: Negative for injury, pain, redness, and discharge, ENT: Negative for injury, snw pain, and discharge, Neck: Negative for injury, pain, and swelling, Cardiovascular: Negative for chest pain, palpitations, and edema. 20:55 Back: Negative for injury and pain, : Negative for injury, bleeding, discharge, and swelling, MS/Extremity: Negative for injury and deformity, Skin: Negative for injury, rash, and discoloration, Neuro: Negative for headache, weakness, numbness, tingling, and seizure. 20:55 Constitutional: Positive for body aches, chills, fatigue, fever, malaise, poor PO intake. 20:55 Respiratory: Positive for cough. 20:55 Abdomen/GI: Positive for vomiting. Exam: 20:55 Constitutional: This is a well developed, well nourished patient who is awake, alert, snw and in no acute distress. Head/Face: Normocephalic, atraumatic. Eyes: Pupils equal round and reactive to light, extra-ocular motions intact. Lids and lashes normal. Conjunctiva and sclera are non-icteric and not injected. Cornea within normal limits. Periorbital areas with no swelling, redness, or edema. ENT: Nares patent. No nasal discharge, no septal abnormalities noted. Tympanic membranes are normal and external auditory canals are clear. Oropharynx with no redness, swelling, or masses, exudates, or evidence of obstruction, uvula midline. Mucous membranes moist. Neck: Trachea midline, no thyromegaly or masses palpated, and no cervical lymphadenopathy. Supple, full range of motion without nuchal rigidity, or vertebral point tenderness. No Meningismus. Chest/axilla: Normal chest wall appearance and motion. Nontender with no deformity. No lesions are appreciated. Cardiovascular: Regular rate and rhythm with a normal S1 and S2. No gallops, murmurs, or rubs. Normal PMI, no JVD. No pulse deficits. Respiratory: Lungs have equal breath sounds bilaterally, clear to auscultation and percussion. No rales, rhonchi or wheezes noted. No increased work of breathing, no retractions or nasal flaring. Abdomen/GI: Soft, non-tender, with normal bowel sounds. No distension or tympany. No guarding or rebound. No evidence of tenderness throughout. Back: No spinal tenderness. No costovertebral tenderness. Full range of motion. Skin: Warm, dry with normal turgor. Normal color with no rashes, no lesions, and no evidence of cellulitis. MS/ Extremity: Pulses equal, no cyanosis. Neurovascular intact. Full, normal range of motion. Neuro: Awake and alert, GCS 15, oriented to person, place, time, and situation. Cranial nerves II-XII grossly intact. Motor strength 5/5 in all extremities. Sensory grossly intact. Cerebellar exam normal. Normal gait. Psych: Awake, alert, with orientation to person, place and time. Behavior, mood, and affect are within normal limits. Vital Signs: 18:44 BP 140 / 93; Pulse 92; Resp 15; Temp 98.3(TE); Pulse Ox 96% on R/A; Weight 72.57 kg; ss 21:58 BP 150 / 89; Pulse 80; Resp 16 S; Pulse Ox 97% on R/A; jd3 MDM: 20:31 Patient medically screened. snw 21:46 Data reviewed: vital signs, nurses notes. Data interpreted: Pulse oximetry: on room air snw is 96 %. Interpretation: acceptable. Counseling: I had a detailed discussion with the patient and/or guardian regarding: the historical points, exam findings, and any diagnostic results supporting the discharge/admit diagnosis, radiology results, the need for outpatient follow up, to return to the emergency department if symptoms worsen or persist or if there are any questions or concerns that arise at home. Special discussion: I have referred the patient to see his PCP for further evaluation of high blood pressure. Based on the history and exam findings, there is no indication for further emergent testing or inpatient evaluation. I discussed with the patient/guardian the need to see the primary care provider for further evaluation of the symptoms. 10/05 20:41 Order name: Chest Single View XRAY snw Administered Medications: 21:57 Drug: Zithromax 500 mg Route: PO; jd3 21:57 Follow up: Response: Medication administered at discharge. jd3 21:57 Drug: Tussionex Pennkinetic ER 5 ml Route: PO; jd3 21:58 Follow up: Response: Medication administered at discharge. jd3 Disposition: 10/06 02:12 Co-signature as Attending Physician, Ant Butts MD. [email or web address] Disposition: 10/06/19 21:42 Discharged to Home. Impression: SARS-associated coronavirus as the cause of diseases classified elsewhere, Acute upper respiratory infection, unspecified. - Condition is Stable. - Discharge Instructions: Upper Respiratory Infection, Adult, Rehydration, Adult, COVID-19. - Prescriptions for Prednisone 20 mg Oral Tablet - take 2 tablet by ORAL route once daily for 5 days; 10 tablet. Albuterol Sulfate 90 mcg/actuation - inhale 1-2 puff by INHALATION route every 4-6 hours; 1 Inhaler. Zithromax 500 mg Oral Tablet - take 1 tablet by ORAL route once daily for 5 days; 5 tablet. - Medication Reconciliation Form, Thank You Letter, Antibiotic Education, Prescription Opioid Use form. - Follow up: Emergency Department; When: As needed; Reason: Worsening of condition. Follow up: Private Physician; When: 2 - 3 days; Reason: Recheck today's complaints, Continuance of care, Re-evaluation by your physician. Signatures: Dispatcher [employer] EDMS Jo Tomlinson, PLUMBER'S ASSISTANT-C PLUMBER'S ASSISTANT-Csnw Obdulia Lane RN RN ss Davies, Jonathon, RN RN jAnt Cheek MD MD mh7 Corrections: (The following items were deleted from the chart) 10/05 21:59 21:42 10/06/2019 21:42 Discharged to Home. Impression: SARS-associated coronavirus as jd3 the cause of diseases classified elsewhere; Acute upper respiratory infection, unspecified. Condition is Stable. Forms are Medication Reconciliation Form, Thank You Letter, Antibiotic Education, Prescription Opioid Use. Follow up: Emergency Department; When: As needed; Reason: Worsening of condition. Follow up: Private Physician; When: 2 - 3 days; Reason: Recheck today's complaints, Continuance of care, Re-evaluation by your physician. snw
[2019-10-06 22:40] VITALS: BP 150/89; O2SAT 97
[2019-10-06 22:41] VITALS: TEMP 98.3
--- NOTE | 2019-10-07 08:44 | RAD REPORT ---
EXAM DESCRIPTION: RAD - Chest Single View - 10/06/2019 9:03 pm CLINICAL HISTORY: COUGH, body aches, abdominal pain, history of positive COVID test COMPARISON: October 01 TECHNIQUE: AP portable chest image was obtained 10/06/2019 9:03 pm . FINDINGS: Lung volumes are low. No peripheral mass or consolidation. The low lung volumes cause [place] ding of vasculature and lung markings. Patient has some questionable patchy alveolar opacities. This could be both COVID-19 tight alveolar infiltrate or atelectasis. Heart and vasculature are normal. No measurable pleural effusion and no pneumothorax. No acute bony abnormality seen. No acute aortic fin dings suspected. IMPRESSION: Exam is significantly limited by low lung volumes and under penetrated portable techniqu e. Patchy lung parenchymal opacities are evident. This could be atelectasis or infiltrate, including COV ID-19 pneumonia findings.
== END 2019-10-06 21:59 | disposition home or self-care (01) ==
LOC: ER 18:22
DX: U07.1 COVID-19 (principal); J06.9 Acute upper respiratory infection, unspecified; I10 Essential (primary) hypertension; Z85.3 Personal history of malignant neoplasm of breast
CPT/HCPCS: 71045; 99284

== ENCOUNTER 2019-10-10 13:11 | Emergency (ER) | payer OTHER ==
[2019-10-10] MEDS ORDERED: NA CHLORIDE 0.9% 1,000 ML ONE (14:18)
[2019-10-10] MEDS ORDERED: PANTOPRAZOLE 40 MG INJ ONE (14:18)
[2019-10-10] MEDS ORDERED: ONDANSETRON 4 MG/2 ML VIAL ONE (14:18)
[2019-10-10 14:27] LABS: Absolute Lymphocytes (CBC) 1.5 K/uL (0.7-4.9); Basophils % 0.2 % (0-1.3); Hematocrit 37.9 % (36.0-45.0); Lymphocytes % 23.1 % (15.3-44.8); MPV 8.4 fL (7.6-11.3); RBC Red Blood Cell Count 4.28 M/uL (3.86-4.86)
--- OUTSIDE RECORDS SUMMARY | 2019-10-10 14:40 | XMS REPORT | Continuity of Care Document ---
:1970 Author Organization [facility] t Address [address] [place] [address] [address]. [address] [place] [address] Care Team Providers Name Role Phone Kori Hameed MD Attending Clinician Mookie JARAMILLO, H Attending Clinician Po, [facility] Attending Clinician Unavailable Sandor JARAMILLO, Y [...] Facility Department ID 2019-09-26 2019-09-26 Abstract Zari [facility] [id number] 00:00:00 00:00:00 Nicole SPECIALTY [id number] [facility] [id number] [place] AT [phone] TRAVIS Ratliff [facility] 2019-09-16 2019-09-16 Telephone ASTER Damico [id number] 00:00:00 00:00:00 Dedrick RUSSELL [id number] [facility] [id number] 2019-09-14 2019-09-14 Urgent Pob1, Acute [facility] [id number] 12:29:37 12:49:37 [facility] [id number] Professio [phone] nal [address] 2019-08-29 2019-08-29 Office PattenIsidro crawley [id number] 13:15:20 16:27:02 Visit Y Pediatric [id number] s and [id number] Adult [phone] Primary [facility] Results Test Description Test Time Test Comments Results Result [facility] e Comments BREAST ULTRASOUND 2018-07-14 - DIAG MAMM BILATERAL BILATERAL 1 YISSEL CAD DIGITALBILATERAL 15:30:02 DIGITAL DIAGNOSTIC MAMMOGRAM 3D/2D WITH CAD: 08/02/2018CLINICAL: Previous breast cancer. Digital breast tomosynthesis was performed in addition to routine CC and MLO views. Current mammographic images were evaluated by either a [employer] M-Vu or a [employer] ImageChecker CAD (computer aided detection system). Comparison is made to exams dated 07/30/2017 mammogram, 06/24/2016 mammogram, and 03/25/2015 mammogram - [facility]-. There are scattered fibroglandular tissues [...] 06/24/2016 mammogram, and 03/25/2015 mammogram - [facility]-. Real-time ultrasound of both breasts [...] Garcia M.D. dm/:08/02/2018 15:30:02 Attending Technologist: Galina FLORES, [facility]-Imaging Technologist: Lissy Mcclellan FW, [facility]-letter sent: BIRADS 1-2 Combo FU Letter Mammogram BI-RADS: 0 Indeterminate Ultrasound BI-RADS: 1 Negative DIAG MAMM 2018-07-14 - DIAG MAMM BILATERAL BILATERAL YISSEL 1 YISSEL CAD DIGITALBILATERAL CAD DIGITAL 15:30:02 DIGITAL DIAGNOSTIC MAMMOGRAM 3D/2D WITH CAD: 08/02/2018CLINICAL: Previous breast cancer. Digital breast tomosynthesis was performed in addition to routine CC and MLO views. Current mammographic images were evaluated by either a [employer] M-Vu or a [employer] ImageChecker CAD (computer aided detection system). Comparison is made to exams dated 07/30/2017 mammogram, 06/24/2016 mammogram, and 03/25/2015 mammogram - [facility]-. There are scattered fibroglandular tissues [...] 06/24/2016 mammogram, [facility] Real-time ultrasound of both breasts and both axilla and clinical breast exam was performed. No abnormalities were seen sonographically in either breast or either axilla. Clinical breast exam was unremarkable. IMPRESSION: NEGATIVE There is no sonographic evidence of malignancy. Patient has been informed that she should have screening mammogram and supplemental ultrasound in 1 year.Kacie Garica M.D. dm/:08/02/2018 15:30:02 Attending Technologist: Galina Vela , [facility]ITALImaging Technologist: Lissy FLORES, [facility]ITALletter sent: BIRADS 1-2 Combo FU Letter Mammogram BI-RADS: 0 Indeterminate Ultrasound BI-RADS: 1 Negative
[2019-10-10 14:49] LABS: ALT/SGPT 47 U/L (12-78); AST/SGOT 65 U/L (15-37); Albumin 3.1 g/dL (3.4-5.0); Alkaline Phosphatase 94 U/L (45-117); BUN Blood Urea Nitrogen 17 mg/dL (7-18); Bicarbonate 27 mmol/L (21-32); Bilirubin Direct < 0.1 mg/dL (0-0.2); Bilirubin Total 0.2 mg/dL (0.2-1.0); Glucose Level 94 mg/dL (74-106); Lipase 209 U/L (73-393); Magnesium 2.1 mg/dL (1.8-2.4); Potassium 3.3 mmol/L (3.5-5.1); Protein, Total 7.7 g/dL (6.4-8.2); Sodium Level 141 mmol/L (136-145); Troponin I < 0.02 ng/mL (0.0-0.045)
--- NOTE | 2019-10-10 16:18 | RAD REPORT ---
EXAM DESCRIPTION: Nellie Single View10/10/2019 2:18 pm CLINICAL HISTORY: Chest pain COMPARISON: October 05, 2000 FINDINGS: No change mild bilateral pulmonary opacities which probably represent pneumonia The heart is normal size
--- NOTE | 2019-10-10 16:27 | RAD REPORT ---
EXAM DESCRIPTION: CT - Abdomen Pelvis W Contrast - 10/10/2019 3:48 pm CLINICAL HISTORY: Abdominal pain COMPARISON: none. TECHNIQUE: Computed axial tomography of the abdomen pelvis was obtained. 100 cc Isovue-300 was admin istered intravenously. Oral contrast was not requested which limits evaluation of bowel. All CT scans are performed using dose optimization technique as appropriate and may include automated exposure control or mA/KV adjustment according to patient size. FINDINGS: Moderate ground-glass opacities within the lung bases Fatty liver Spleen, pancreas, adrenal and kidneys appear unremarkable. There is no evidence of diverticulitis. Normal appendix. Small umbilical hernia The uterus is enlarged containing calcified fibroids. Largest measures 8 centimeters IMPRESSION: Moderate bibasilar pneumonia can be seen with Covid Fibroid uterus
--- NOTE | 2019-10-10 17:01 | ER ---
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 13:19 Method Of Arrival: Wheelchair tw2 13:24 Chief complaint: Patient states: i just feel so short of breath and i have a headache tw2 that wont go away and i have been taking tylenol. Coronavirus screen: Patient reports a cough. Patient reports shortness of breath or difficulty breathing. Patient denies measured and/or subjective temperature greater than 100.4F prior to today's visit. Patient denies contact with known and/or suspected case of COVID-19. Ebola Screen: Patient denies travel to an Ebola-affected area in the 21 days before illness onset. Initial Sepsis Screen: Does the patient meet any 2 criteria? No. Patient's initial sepsis screen is negative. Does the patient have a suspected source of infection? No. Patient's initial sepsis screen is negative. Risk Assessment: Do you want to hurt yourself or someone else? Patient reports no desire to harm self or others. Onset of symptoms was October 10, 2019. 13:24 Acuity: AMY 3 tw2 Triage Assessment: 13:22 General: Appears uncomfortable, well groomed, Behavior is calm, cooperative, tw2 appropriate for age. Pain: Complains of pain in abdomen. 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 - Social history:: Smoking status: Patient denies any tobacco usage or history of. Screenin:39 Abuse screen: Denies threats or abuse. Nutritional screening: No deficits noted. ll1 Tuberculosis screening: No symptoms or risk factors identified. Fall Risk IV access (20 points). Ambulatory Aid- Crutches/Cane/Walker (15 pts). Gait- Weak (10 pts.). Total Servin Fall Scale indicates High Risk Score (45 or more points). Fall prevention measures have been instituted. Side Rails Up X 2 Placed Close to Nursing Station Frequent Obs/Assessments Occuring As available patient and family educated on Fall Prevention Program and Strategies. Assessment: 13:38 General: Appears in no apparent distress. Behavior is calm, cooperative. Neuro: No ll1 deficits noted. Cardiovascular: No deficits noted. Respiratory: Reports cough that is. GI: Abdomen is flat, Bowel sounds present X 4 quads. Reports upper abdominal pain, nausea, vomiting. Musculoskeletal: Reports + body aches and generalized weakness. 14:40 Reassessment: Patient appears in no apparent distress at this time. No changes from ll1 previously documented assessment. Patient and/or family updated on plan of care and expected duration. Pain level reassessed. Patient is alert, oriented x 3, equal unlabored respirations, skin warm/dry/pink. 15:40 Reassessment: Patient appears in no apparent distress at this time. No changes from ll1 previously documented assessment. Patient and/or family updated on plan of care and expected duration. Pain level reassessed. Patient is alert, oriented x 3, equal unlabored respirations, skin warm/dry/pink. 16:40 Reassessment: Patient appears in no apparent distress at this time. No changes from ll1 previously documented assessment. Patient and/or family updated on plan of care and expected duration. Pain level reassessed. Patient is alert, oriented x 3, equal unlabored respirations, skin warm/dry/pink. 17:18 Reassessment: Patient appears in no apparent distress at this time. No changes from ll1 previously documented assessment. Patient and/or family updated on plan of care and expected duration. Pain level reassessed. Patient is alert, oriented x 3, equal unlabored respirations, skin warm/dry/pink. Vital Signs: 13:23 BP 114 / 78; Pulse 91; Resp 16; Temp 97.6(TE); Pulse Ox 95% on R/A; Weight 72.57 kg tw2 (R); Height 5 ft. 1 in. (154.94 cm); 13:26 Pain 5/10; tw2 14:43 BP 128 / 76; Pulse 79; Resp 17; ll1 16:00 BP 116 / 59; Pulse 73; Resp 18; Pulse Ox 97% on R/A; ll1 17:17 BP 126 / 65; Pulse 73; Resp 18; Pulse Ox 97% ; Pain 0/10; ll1 13:23 Body Mass Index 30.23 (72.57 kg, 154.94 cm) tw2 ED Course: 13:17 Patient arrived in ED. am2 13:22 Arm band placed on. tw2 13:25 Triage completed. tw2 13:26 Mike Walter PA is PHCP. cp 13:26 Mike Haddad MD is Attending Physician. cp 13:29 Clifton Donis RN is Primary Nurse. ll1 13:40 Patient has correct armband on for positive identification. Bed in low position. Call ll1 light in reach. Side rails up X2. Patient placed on droplet and contact precautions with eye protection. 14:00 Inserted saline lock: 22 gauge in right antecubital area, using aseptic technique. ll1 Blood collected. 14:18 XRAY Chest (1 view) In Process Unspecified. EDMS 15:50 CT Abd/Pelvis - IV Contrast Only In Process Unspecified. EDMS 17:15 IV discontinued, intact, bleeding controlled, No redness/swelling at site. Pressure ll1 dressing applied. 17:19 No provider procedures requiring assistance completed. ll1 Administered Medications: 14:41 Drug: Zofran (Ondansetron) 4 mg Route: IVP; Site: right antecubital; 1 17:16 Follow up: Response: No adverse reaction; Nausea is decreased; RASS: Drowsy (-1) ll1 14:41 Drug: ProTONIX 40 mg Route: IVP; Site: right antecubital; ll1 17:16 Follow up: Response: No adverse reaction; RASS: Alert and Calm (0) ll1 14:41 Drug: NS 0.9% 1000 ml Route: IV; Rate: 1 bolus; Site: right antecubital; ll1 17:16 Follow up: Response: No adverse reaction; RASS: Alert and Calm (0); IV Status: ll1 Completed infusion; IV Intake: 1000ml 16:59 Drug: Potassium Effervescent Tablet 50 mEq Route: PO; ll1 17:15 Follow up: Response: No adverse reaction; RASS: Alert and Calm (0) ll1 Intake: 17:16 IV: 1000ml; Total: 1000ml. ll1 Outcome: 16:59 Discharge ordered by . cp 17:20 Discharged to home ambulatory. ll1 17:20 Condition: stable 17:20 Discharge instructions given to patient, Instructed on discharge instructions, follow up and referral plans. medication usage, Demonstrated understanding of instructions, follow-up care, medications, Prescriptions given X 1. 17:20 Patient left the ED. ll1 Signatures: Dispatcher [employer] EDMS Mike Walter PA PA cp Wise, Tara RN RN tw2 Ashlee Canela Lynsay, RN RN ll1
--- NOTE | 2019-10-10 17:01 | EDPHYS ---
Physician Documentation [facility] Name: Bianka Montelongo Age: 49 yrs Sex: Female : 1970 Arrival Date: 10/10/2019 Time: 13:17 Bed 15 Private MD: ED Physician Mike Haddad HPI: 10/09 14:10 This 49 yrs old Female presents to ER via Wheelchair with complaints of cp Weakness, Nausea/Vomiting. 14:10 The patient presents to the emergency department with nausea, that is moderate, cp vomiting, that is intermittent, abdominal pain, of the umbilical area. Onset: The symptoms/episode began/occurred 3 day(s) ago. 14:10 Possible causes: Diagnosed with COVID-19 last week. 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 - Social history:: Smoking status: Patient denies any tobacco usage or history of. ROS: 14:15 Constitutional: Negative for body aches, chills, fever. cp 14:15 Eyes: Negative for injury, pain, redness, and discharge. cp 14:15 ENT: Negative for ear pain, sore throat, difficulty swallowing, difficulty handling secretions. 14:15 Cardiovascular: Negative for chest pain, edema, palpitations. 14:15 Respiratory: Positive for cough, "sounds productive", shortness of breath. 14:15 Abdomen/GI: Positive for abdominal pain, nausea and vomiting. 14:15 Neuro: Positive for weakness, Negative for altered mental status, headache, syncope. 14:15 All other systems are negative. Exam: 14:20 Constitutional: The patient appears in no acute distress, alert, awake, cp non-diaphoretic, non-toxic, well developed, well nourished. 14:20 Head/Face: Normocephalic, atraumatic. cp 14:20 Eyes: Periorbital structures: appear normal, Conjunctiva: normal, no exudate, no injection, Sclera: no appreciated abnormality, Lids and lashes: appear normal, bilaterally. 14:20 ENT: External ear(s): are unremarkable, Nose: is normal, Mouth: is normal, Posterior pharynx: Airway: no evidence of obstruction, patent. 14:20 Neck: ROM/movement: is normal, is supple, without pain, no range of motions limitations, no meningismus. 14:20 Chest/axilla: Inspection: normal, Palpation: is normal, no crepitus, no tenderness. 14:20 Cardiovascular: Rate: normal, Rhythm: regular, Edema: is not appreciated, JVD: is not appreciated. 14:20 Respiratory: the patient does not display signs of respiratory distress, Respirations: normal, no use of accessory muscles, no retractions, labored breathing, is not present, Breath sounds: bronchial sounds, that are mild, are heard diffusely, decreased breath sounds, are not appreciated, stridor, is not appreciated, wheezing: is not appreciated. 14:20 Abdomen/GI: Inspection: abdomen appears normal, Bowel sounds: active, all quadrants, Palpation: soft, in all quadrants, moderate abdominal tenderness, in the umbilical area, right upper quadrant and left upper quadrant, rebound tenderness, is not appreciated, involuntary guarding, is not appreciated. 14:20 Neuro: Orientation: to person, place \\T\\ time. Mentation: is normal. 14:42 ECG was reviewed by the Attending Physician. Vital Signs: 13:23 BP 114 / 78; Pulse 91; Resp 16; Temp 97.6(TE); Pulse Ox 95% on R/A; Weight 72.57 kg tw2 (R); Height 5 ft. 1 in. (154.94 cm); 13:26 Pain 5/10; tw2 14:43 BP 128 / 76; Pulse 79; Resp 17; ll1 16:00 BP 116 / 59; Pulse 73; Resp 18; Pulse Ox 97% on R/A; ll1 17:17 BP 126 / 65; Pulse 73; Resp 18; Pulse Ox 97% ; Pain 0/10; ll1 13:23 Body Mass Index 30.23 (72.57 kg, 154.94 cm) tw2 MDM: 13:27 Patient medically screened. urban 14:00 Differential diagnosis: gastritis, cholecystitis, pancreatitis, appendicitis, cp diverticulitis, viral gastroenteritis, gastroenteritis. 16:48 Counseling: I had a detailed discussion with the patient and/or guardian regarding: the cp historical points, exam findings, and any diagnostic results supporting the discharge/admit diagnosis, lab results, radiology results, to return to the emergency department if symptoms worsen or persist or if there are any questions or concerns that arise at home. Response to treatment: the patient's symptoms have markedly improved after treatment. Special discussion: Based on the patient's Hx, exam, and Dx evaluation, there is no indication for emergent surgery or inpatient Tx. It is understood by the patient/guardian that if the Sx's persist or worsen they need to return immediately for re-evaluation. ED course: VSS. Nausea and pain markedly improved, vomiting resolved. No signs of respiratory distress and patient appears non-toxic. Will discharge to home for continued monitoring. 16:55 Data reviewed: vital signs, nurses notes, lab test result(s), EKG, radiologic studies, cp CT scan, plain films. 10/09 13:51 Order name: Basic Metabolic Panel 10/09 13:51 Order name: CBC with Diff; Complete Time: 15:20 10/09 15:51 Interpretation: Reviewed. 10/09 13:51 Order name: Hepatic Function; Complete Time: 15:20 10/09 15:20 Interpretation: Normal except: AST 65; ALB 3.1; GLOB 4.6; A/G 0.7. 10/09 13:51 Order name: Lipase; Complete Time: 15:20 10/09 13:51 Order name: Magnesium; Complete Time: 15:20 10/09 13:51 Order name: Troponin I; Complete Time: 15:20 10/09 15:41 Interpretation: Reviewed. 10/09 13:51 Order name: EKG; Complete Time: 13:52 10/09 13:51 Order name: XRAY Chest (1 view); Complete Time: 16:44 10/09 13:52 Order name: Basic Metabolic Panel; Complete Time: 15:20 EDMS 10/09 15:41 Interpretation: Normal except: K 3.3; CL 108; GFR 76; CA 8.4. 10/09 15:23 Order name: CT Abd/Pelvis - IV Contrast Only; Complete Time: 16:44 10/09 13:51 Order name: IV Saline Lock; Complete Time: 14:35 10/09 13:51 Order name: Labs collected and sent; Complete Time: 14:35 10/09 13:51 Order name: EKG - Nurse/Tech; Complete Time: 14:33 cp EC:42 Rate is 76 beats/min. Rhythm is regular. RI interval is normal. QRS interval is cp prolonged at 118 msec. QT interval is normal. T waves are Inverted in lead aVR. Interpreted by me. Reviewed by me. Administered Medications: 14:41 Drug: Zofran (Ondansetron) 4 mg Route: IVP; Site: right antecubital; ll1 17:16 Follow up: Response: No adverse reaction; Nausea is decreased; RASS: Drowsy (-1) ll1 14:41 Drug: ProTONIX 40 mg Route: IVP; Site: right antecubital; ll1 17:16 Follow up: Response: No adverse reaction; RASS: Alert and Calm (0) ll1 14:41 Drug: NS 0.9% 1000 ml Route: IV; Rate: 1 bolus; Site: right antecubital; ll1 17:16 Follow up: Response: No adverse reaction; RASS: Alert and Calm (0); IV Status: ll1 Completed infusion; IV Intake: 1000ml 16:59 Drug: Potassium Effervescent Tablet 50 mEq Route: PO; ll1 17:15 Follow up: Response: No adverse reaction; RASS: Alert and Calm (0) ll1 Disposition: 10/10 08:37 Co-signature as Attending Physician, Mike Haddad MD I agree with the assessment and [facility] plan of care. Disposition: 10/10/19 16:59 Discharged to Home. Impression: Nausea and vomiting, Coronavirus infection, unspecified, Pneumonia due to other specified infectious organisms. - Condition is Stable. - Discharge Instructions: Dehydration, Adult, Nausea and Vomiting, Adult, Community-Acquired Pneumonia, Adult, COVID-19. - Prescriptions for Zofran 4 mg Oral Tablet - take 1 tablet by ORAL route every 12 hours As needed; 20 tablet. - Medication Reconciliation Form, Thank You Letter, Antibiotic Education, Prescription Opioid Use form. - Follow up: Private Physician; When: 2 - 3 days; Reason: Recheck today's complaints. - Problem is new. - Symptoms have improved. Signatures: Dispatcher [employer] Mike Bolton MD MD cha Page, Corey, PA PA cp Wise, Tara, RN RN tw2 Clifton Donis RN RN ll1 Corrections: (The following items were deleted from the chart) 10/09 15:41 15:41 Normal except: K 3.3; CL 108; GFR 76. cp cp 17:20 16:59 10/10/2019 16:59 Discharged to Home. Impression: Nausea and vomiting; Coronavirus ll1 infection, unspecified; Pneumonia due to other specified infectious organisms. Condition is Stable. Forms are Medication Reconciliation Form, Thank You Letter, Antibiotic Education, Prescription Opioid Use. Follow up: Private Physician; When: 2 - 3 days; Reason: Recheck today's complaints. Problem is new. Symptoms have improved. cp
[2019-10-10] MEDS ORDERED: POTASSIUM 25 MEQ EFFERV TAB ONE (17:04)
[2019-10-10 17:37] VITALS: TEMP 97.6
[2019-10-10 17:43] VITALS: O2SAT 97
[2019-10-10 17:45] VITALS: BP 126/65
--- NOTE | 2019-10-12 07:36 | EKG ---
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
== END 2019-10-10 17:20 | disposition home or self-care (01) ==
LOC: ER 13:11
DX: U07.1 COVID-19 (principal); J16.8 Pneumonia due to other specified infectious organisms; I10 Essential (primary) hypertension; Z85.3 Personal history of malignant neoplasm of breast
CPT/HCPCS: 96361; 93005; 85025; 80048; 36415; 83735; 80076; 84484; 83690; 74177; 71045; 96375; 96374; 99284; Q9967; C9113; J7030; J2405

== ENCOUNTER 2022-05-27 19:54 | Emergency (ER) | payer OTHER, SELFPAY ==
--- OUTSIDE RECORDS SUMMARY | 2022-05-27 20:00 | XMS REPORT | Continuity of Care Document ---
:1970 Author Organization [facility] t Address [address] [place] [address]. [address] [place] [address] Care Team Providers Name Role Phone Tereza Ennis Primary Care Physician [phone] Olu Hart Attending Clinician Unavailable Vaccine, [facility] Attending Clinician Unavailable Phillip Reis DO Attending Clinician PHILLIP REIS Attending Clinician Unavailable Team, [facility] Attending Clinician UnavailBianka Aguirre Attending Clinician Tae Morales Attending Clinician Unavailable Nurse, Cassie Urgent Attending Clinician Unavailable Unknown, Attending Attending Clinician Unavailable UNKNOWN, ATTENDING Attending Clinician Unavailable DALILA ROGERS Attending Clinician Unavailable RADHA MALONE Attending Clinician Unavailable Radha Malone MD Attending Clinician [phone] Bradly Patten MD Attending Clinician BIANKA PALOMINO Attending Clinician Unavailable Doctor Unassigned, Medicine [place] Attending Clinician Unavailable [place] MD, Mario A Attending Clinician Gagandeep QUINTANA, Dulce Attending Clinician DULCE DONIS Attending Clinician Unavailable Angelika Nolasco NP Attending Clinician Gonzalez PARRY, Katlin Martin Attending Clinician Unavailable ANGELKIA NOLASCO Attending Clinician Unavailable Berenice Fox PA-C Attending Clinician BERENICE FOX Attending Clinician Unavailable BRADLY PATTEN Attending Clinician Unavailable JUAN RAMON RAMIRES Attending Clinician Unavailable Nurse, Cassie Castaneda Pedi Attending Clinician Unavailable Tl Bradley MD Attending Clinician TL BRADLEY Attending Clinician Unavailable MARY FOX Attending Clinician Unavailable Vanessa QUINTANA, Alida Attending Clinician ALIDA RAMEY Attending Clinician Unavailable ASTER WHITMAN Attending Clinician Unavailable Zari JARAMILLO, Nicole Sheikh Attending Clinician Dedrick Damico MD Attending Clinician JESIKA EDMONDS Attending Clinician Unavailable [address] [facility] Attending Clinician Unavailable Jesika Winslow Attending Clinician Severo Aquino Attending Clinician Severo CH Attending Clinician Unavailable Aleyda Saxena DO Attending Clinician Aster Whitman MD Attending Clinician Chel Azul Attending Clinician Steve Donis PA-C Attending Clinician Nathaly Denton MD Attending Clinician NATHALY DENTON Attending Clinician Unavailable Mary Fox MD Attending Clinician Care, Cassie Urgent Attending Clinician Unavailable Olu Hart Admitting Clinician Unavailable Physician, No Primary or Family Admitting Clinician UnavailSevero Negro Admitting Clinician Unavailable NATHALY DENTON Admitting Clinician Unavailable Payers Payer Name Policy Type Policy Number Effective Date Expiration Date S cindy MCDONOUGH II [id number] 2019 00:00:00 Problems Condition Condition Condition Status Onset Resolution Last Treating Co mments Source Name Details Category Date Date Treatment Clinician Date Environmen Environmen Disease Active U nivbecca selena selena 1-19 [place] Chronic Chronic Disease Active [facility] pain of pain of 1-19 [place] of [place] [facility] [place] Fatty Fatty Disease Active [facility] liver liver 2-14 ity of 00:00: [place] 00 Medical Branch Fibroadeno Fibroadeno Disease Active Overview : Univers sis of sis of 05 Formattin ity of breast breast 00:00: g of this [place] note Medical might be Branch different from the original. Right breast. Benign Benign Disease Active Overview: Univer s neoplasm neoplasm 07-17 Formattin ity of of breast of breast 00:00: [place] of this [place] 00 note Medical might be Branch different from the original. Left breast adeno ca. Other sign Other sign Disease Active Overview : Univers and and 4-15 Formattin ity of symptom in symptom in 00:00: g of this [place] breast breast 00 note Medical might be Branch different from the original. Breast pain x 1 yr. Neoplasm Neoplasm Disease Active Overview: Un te[place] of of 4-15 Formattin ity of uncertain uncertain 00:00: [place] of this [place] behavior behavior 00 note Medica l of breast of breast might be Br anch different from the original. Found 1 yr. Ago on SBE (Thinks mass is same size as last yr.) Breast Breast Disease Active Univers cancer cancer ity of [facility] Migraine Migraine Disease Active Unive rs ity of [facility] Hypertensi Hypertensi Disease Active U nivers on on ity of [facility] Allergies, Adverse Reactions, Alerts Allergy Allergy Status Severity Reaction(s) Onset Inactive Treating Comm ents Source Name Type Date Date Clinician No Known DA Active U [facility] Allergie 11-16 Clear s 00:00: Fel[place] 00 [facility] n Propensi Active ty to 5-31 adverse 00:00: reaction 00 to drug [facility] Propensi Active - Oral ty to 3-03 adverse 00:00: reaction 00 to drug fexofena DA Active [place] "FEELS 2020-03 [facility] dine DRUNK" 04-09 Clear 00:00: [place] 00 [facility] Propensi Active 2020-03 ty to 03-18 adverse 00:00: reaction 00 to drug Fexofena Propensi Active Dizziness 2020-03 Uni vers dine ty to 0-07 ity of adverse 00:00: [place] reaction 00 Medical s Branch FEXOFENA DRUG Active Dizziness 2020-03 Unive rs DINE INGREDI 0-07 ity of 00:00: [place] 00 Medical Branch NO KNOWN Drug Active Univers ALLERGIE Class ity of [facility] 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 Social Habit Start Date Stop Date Quantity Comments Source Exposure to 2021-01-08 2021-02-07 Not sure [facility] SARS-CoV-2 00:00:00 14:11:00 [facility] (event) Branch Alcohol intake 2016-02-29 2016-02-29 Current [facility] 00:00:00 00:00:00 non-drinker of [facility] [place] [facility] alcohol Branch (finding) Tobacco use and 2013-04-06 2013-04-06 Never used Universit y of exposure 00:00:00 00:00:00 [facility] Sex [birth year] Universit y of 00:00:00 00:00:00 [facility] Smoking Status Start Date Stop Date Source Never smoker [facility] Medications Ordered Filled Start Stop Current Ordering Indication Dosage Frequency Signature Comments Components Source Medication Medication Date Date Medication? Clinician (SIG) Name Name USE TO No SPRAY(S) IN 18 EACH 00:00: NOSTRIL 00 ONCE DAILY USE TO 2021-03 No SPRAY(S) IN 0-04 EACH 00:00: NOSTRIL 00 ONCE DAILY Dose No Unknown - 00:00: 00 Dose 2021- No Unknown - 00:00: 00 USE 1 TO 2 No SPRAY(S) IN 8-24 EACH 00:00: NOSTRIL 00 ONCE DAILY USE TO No SPRAY(S) IN 8-24 EACH 00:00: NOSTRIL 00 ONCE DAILY Dose No Unknown 8- 00:00: 00 Dose 2022-0 No 75 Unknown 8- 00:00: 00 Dose 2022-0 No Unknown 8 00:00: 00 Dose 2022-0 No 75 Unknown 8 00:00: 00 TAKE 1 2-0 No 500 TABLET BY 7-27 MOUTH THREE 00:00: TIMES DAILY 00 TAKE 1 2-0 No 500 TABLET BY 7-27 MOUTH THREE 00:00: TIMES DAILY 00 azithromyci 2022-0 No 1mg n 250 mg 6-21 tablet 00:00: 00 fluticasone 2022-0 No 12mcg/a propionate 6-21 ctuatio 50 00:00: n mcg/actuati 00 on nasal spray,suspe nsion Dose 2021-0 No Unknown 6 00:00: 00 azithromyci 2-0 No 1mg n 250 mg 6-21 tablet 00:00: 00 fluticasone 2-0 No 12mcg/a propionate 6-21 ctuatio 50 00:00: n mcg/actuati 00 on nasal spray,suspe nsion Dose 2021-0 No Unknown 6 00:00: 00 TAKE 1 2021-0 No TABLET BY 6-09 MOUTH TWICE 00:00: DAILY 00 TAKE 1 2021-0 No TABLET BY 6-09 MOUTH TWICE 00:00: DAILY 00 montelukast 2-0 No 1mg 10 mg 5-31 tablet 00:00: 00 lisinopril 2-0 No 1mg 20 5-31 mg-hydrochl 00:00: orothiazide 00 12.5 mg tablet metformin 2021-0 No 1mg 500 mg 5-31 tablet 00:00: 00 TAKE 1 2-0 No TABLET BY 5-31 MOUTH ONCE 00:00: DAILY 00 TAKE 1 2-0 No TABLET BY 5-31 MOUTH TWICE 00:00: DAILY 00 INHALE 2 2-0 No PUFFS BY 5-31 MOUTH EVERY 00:00: 6 HOURS 00 NEEDED FOR WHEEZING FOR SHORTNESS OF BREATH Dose 2-0 No Unknown 5-31 00:00: 00 TAKE 1 2-0 No TABLET BY 5-31 MOUTH THREE 00:00: TIMES DAILY 00 TAKE 1 2-0 No TABLET BY 5-31 MOUTH ONCE 00:00: DAILY 00 TAKE 1 2-0 No TABLET BY 5-31 MOUTH TWICE 00:00: DAILY 00 APPLY 2-0 No SOLUTION 5-31 EXTERNALLY 00:00: TO AFFECTED 00 AREA TWICE DAILY FOR 30 DAYS montelukast 2021-0 No 1mg 10 mg 5-31 tablet 00:00: 00 lisinopril 2021-0 No 1mg 20 5-31 mg-hydrochl 00:00: orothiazide 00 12.5 mg tablet metformin 2021-0 No 1mg 500 mg 5-31 tablet 00:00: 00 TAKE 1 2021-0 No TABLET BY 5-31 MOUTH ONCE 00:00: DAILY 00 TAKE 1 2021-0 No TABLET BY 5-31 MOUTH TWICE 00:00: DAILY 00 INHALE 2 2021-0 No PUFFS BY 5-31 MOUTH EVERY 00:00: 6 HOURS 00 NEEDED FOR WHEEZING FOR SHORTNESS OF BREATH Dose 2021-0 No Unknown 5-31 00:00: 00 TAKE 1 2021-0 No TABLET BY 5-31 MOUTH THREE 00:00: TIMES DAILY 00 TAKE 1 2021-0 No TABLET BY 5-31 MOUTH ONCE 00:00: DAILY 00 TAKE 1 2021-0 No TABLET BY 5-31 MOUTH TWICE 00:00: DAILY 00 APPLY 2021-0 No SOLUTION 5-31 EXTERNALLY 00:00: TO AFFECTED 00 AREA TWICE DAILY FOR 30 DAYS montelukast 2-0 No 1mg 10 mg 5-04 tablet 00:00: 00 montelukast 2-0 No 1mg 10 mg 5-04 tablet 00:00: 00 Dose 2-0 No Unknown 3-04 00:00: 00 Dose 2-0 No Unknown 3-04 00:00: 00 Dose 2-0 No Unknown 3-04 00:00: 00 Dose 2-0 No Unknown 3-04 00:00: 00 Dose 2-0 No Unknown 3-04 00:00: 00 Dose 2-0 No Unknown 3-04 00:00: 00 Dose 2-0 No Unknown 3-04 00:00: 00 Dose 2-0 No Unknown 3-04 00:00: 00 Dose 2-0 No Unknown 3-04 00:00: 00 Dose 2022-0 No Unknown 3-04 00:00: 00 Dose 2-0 No Unknown 3-04 00:00: 00 Dose 2022-0 No Unknown 3-04 00:00: 00 lisinopril 2022-0 No 1mg 20 3-03 mg-hydrochl 00:00: orothiazide 00 12.5 mg tablet metformin 2-0 No 1mg 500 mg 3-03 tablet 00:00: 00 Dose 2022-0 No Unknown 3-03 00:00: 00 lisinopril 2022-0 No 1mg 20 3-03 mg-hydrochl 00:00: orothiazide 00 12.5 mg tablet metformin 2-0 No 1mg 500 mg 3-03 tablet 00:00: 00 Dose 2022-0 No Unknown 3-03 00:00: 00 triamcinolo 2022-0 No 1% ne 2-01 acetonide 00:00: 0.1 % 00 topical cream lisinopril 2-0 No 1mg 20 2-01 mg-hydrochl 00:00: orothiazide 00 12.5 mg tablet Dose 2-0 No Unknown 2-01 00:00: 00 triamcinolo 2022-0 No 1% ne 2-01 acetonide 00:00: 0.1 % 00 topical cream lisinopril 2-0 No 1mg 20 2-01 mg-hydrochl 00:00: orothiazide 00 12.5 mg tablet Dose 2-0 No Unknown 2-01 00:00: 00 diclofenac 2-0 No 1mg sodium 75 1-17 mg 00:00: tablet,inocencio 00 yed release diclofenac 2-0 No 1mg sodium 75 1-17 mg 00:00: tablet,inocencio 00 yed release gabapentin 2-0 No 2mg 100 mg 1-17 capsule 00:00: 00 gabapentin 2022-0 No 2mg 100 mg 1-17 capsule 00:00: 00 MONTELUKAST 2020-1 Yes [id number] Take 1 Univers 10 mg 2-29 tablet by ity of tablet 00:00: mouth once [address] Branch MONTELUKAST 2020- Yes [id number] Take 1 Univers 10 mg 2-29 tablet by ity of tablet 00:00: mouth once [address] Branch MONTELUKAST 2020-1 Yes [id number] Take 1 Univers 10 mg 2-29 tablet by ity of tablet 00:00: mouth once [address] Branch lisinopril 2020-1 No 2mg 20 mg 2-14 tablet 00:00: 00 metformin 2020-1 No 1mg 500 mg 2-14 tablet 00:00: 00 metformin 2020-1 No 1mg 500 mg 2-14 tablet 00:00: 00 lisinopril 2020-1 No 2mg 20 mg 2-14 tablet 00:00: 00 metformin 2020-1 No 1mg 500 mg 2-14 tablet 00:00: 00 metformin 2020-1 No 1mg 500 mg 2-14 tablet 00:00: 00 lisinopril 2020-1 No 1mg 20 mg 2-01 tablet 00:00: 00 lisinopril 2020-1 No 1mg 20 mg 2-01 tablet 00:00: 00 ibuprofen 2020-1 No 1mg 800 mg 1-19 tablet 00:00: 00 nitrofurant 2020-1 No 1mg oin 1-19 macrocrysta 00:00: l 100 mg 00 capsule ibuprofen 2020-1 No 1mg 800 mg 1-19 tablet 00:00: 00 nitrofurant 2020-1 No 1mg oin 1-19 macrocrysta 00:00: l 100 mg 00 capsule enalapril 2020-1 No 1mg 10 1-04 mg-hydrochl 00:00: orothiazide 00 25 mg tablet metformin 2020-1 No 1mg 500 mg 1-04 tablet 00:00: 00 metformin 2020-1 No 1mg 500 mg 1-04 tablet 00:00: 00 enalapril 2020-1 No 1mg 10 1-04 mg-hydrochl 00:00: orothiazide 00 25 mg tablet metformin 2020-1 No 1mg 500 mg 1-04 tablet 00:00: 00 metformin 2020-1 No 1mg 500 mg 1-04 tablet 00:00: 00 metformin 1-1 No 1mg 500 mg 0-25 tablet 00:00: 00 enalapril 2020-1 No 1mg 10 0-25 mg-hydrochl 00:00: orothiazide 00 25 mg tablet enalapril 2020-1 No 1mg 10 0-25 mg-hydrochl 00:00: orothiazide 00 25 mg tablet metformin 2020-1 No 1mg 500 mg 0-25 tablet 00:00: 00 enalapril 2020-1 No 1mg 10 0-25 mg-hydrochl 00:00: orothiazide 00 25 mg tablet enalapril 2020-03 No 1mg 10 0-25 mg-hydrochl 00:00: orothiazide 00 25 mg tablet montelukast 2020-03 No 1mg 10 mg 0-21 tablet 00:00: 00 montelukast 2020-03 No 1mg 10 mg 0-21 tablet 00:00: 00 albuterol 2020-03 Yes [id number] INHALE 2 Univers 90 0-11 PUFFS BY ity of mcg/actuati 00:00: MOUTH [place] on inhaler 00 EVERY 6 Medica l HOURS Branch NEEDED FOR WHEEZING FOR SHORTNESS OF BREATH albuterol 2020-03 Yes [id number] INHALE 2 Univers 90 0-11 PUFFS BY ity of mcg/actuati 00:00: MOUTH [place] on inhaler 00 EVERY 6 Medica l HOURS Branch NEEDED FOR WHEEZING FOR SHORTNESS OF BREATH albuterol 2020-03 Yes [id number] INHALE 2 Univers 90 0-11 PUFFS BY ity of mcg/actuati 00:00: MOUTH [place] on inhaler 00 EVERY 6 Medica l HOURS Branch NEEDED FOR WHEEZING FOR SHORTNESS OF BREATH albuterol 2020-03 Yes [id number] INHALE 2 Univers 90 0-11 PUFFS BY ity of mcg/actuati 00:00: MOUTH [place] on inhaler 00 EVERY 6 Medica l HOURS Branch NEEDED FOR WHEEZING FOR SHORTNESS OF BREATH albuterol 2020-03 Yes [id number] INHALE 2 Univers 90 0-11 PUFFS BY ity of mcg/actuati 00:00: MOUTH [place] on inhaler 00 EVERY 6 Medica l HOURS Branch NEEDED FOR WHEEZING FOR SHORTNESS OF BREATH gabapentin 2020-03 Yes 100mg Take 1 Univ ers 100 mg 0-07 capsule by ity of capsule 00:00: mouth 3 [place] 00 (three) Medical times Branch daily. Take only at night if it make you drowsy metformin 2020-03 Yes [id number] 500mg Take 1 Univers ER 500 mg 0-07 tablet by ity o f 24 hr 00:00: mouth [place] tablet 00 daily with Medical breakfast. Branch gabapentin 2020-03 Yes 100mg Take 1 Univ ers 100 mg 0-07 capsule by ity of capsule 00:00: mouth 3 [place] 00 (three) Medical times Branch daily. Take only at night if it make you drowsy metformin 2020-03 Yes [id number] 500mg Take 1 Univers ER 500 mg 0-07 tablet by ity o f 24 hr 00:00: mouth [place] tablet 00 daily with Medical breakfast. Branch gabapentin 2020-03 Yes 100mg Take 1 Univ ers 100 mg 0-07 capsule by ity of capsule 00:00: mouth 3 [place] 00 (three) Medical times Branch daily. Take only at night if it make you drowsy metformin 2020-03 Yes [id number] 500mg Take 1 Univers ER 500 mg 0-07 tablet by ity o f 24 hr 00:00: mouth [place] tablet 00 daily with Medical breakfast. Branch gabapentin 2020-03 Yes 100mg Take 1 Univ ers 100 mg 0-07 capsule by ity of capsule 00:00: mouth 3 [place] (three) Medical times Branch daily. Take only at night if it make you drowsy metformin 2020-03 Yes [id number] 500mg Take 1 Univers ER 500 mg 0-07 tablet by ity o f 24 hr 00:00: mouth [place] tablet 00 daily with Medical breakfast. Branch gabapentin 2020-03 Yes 100mg Take 1 Univ ers 100 mg 0-07 capsule by ity of capsule 00:00: mouth 3 [place] (three) Medical times Branch daily. Take only at night if it make you drowsy metformin 2020-03 Yes [id number] 500mg Take 1 Univers ER 500 mg 0-07 tablet by ity o f 24 hr 00:00: mouth [place] tablet 00 daily with Medical breakfast. Branch gabapentin 2020-03 Yes 100mg Take 1 Univ ers 100 mg 0-07 capsule by ity of capsule 00:00: mouth 3 [place] (three) Medical times Branch daily. Take only at night if it make you drowsy metformin 2020-03 Yes [id number] 500mg Take 1 Univers ER 500 mg 0-07 tablet by ity o f 24 hr 00:00: mouth [place] tablet 00 daily with Medical breakfast. Branch gabapentin 2020-03 Yes 100mg Take 1 Univ ers 100 mg 0-07 capsule by ity of capsule 00:00: mouth 3 [place] 00 (three) Medical times Branch daily. Take only at night if it make you drowsy metformin 2020-03 Yes [id number] 500mg Take 1 Univers ER 500 mg 0-07 tablet by ity o f 24 hr 00:00: mouth [place] tablet 00 daily with Medical breakfast. Branch enalapriL-h 2020- No [id number] 1{tbl} Take 1 Univers ydrochlorot 9-16 10-17 tablet by it y of hiazide 00:00: 04:59 mouth [place] 10-25 mg 00 :00 daily for Medica l per tablet 30 days. [facility] enalapriL-h 2020- No [id number] 1{tbl} Take 1 Univers ydrochlorot 9-16 10-17 tablet by it y of hiazide 00:00: 04:59 mouth [place] 10-25 mg 00 :00 daily for Medica l per tablet 30 days. [facility] enalapriL-h 2020- No [id number] 1{tbl} Take 1 Univers ydrochlorot 9-16 10-17 tablet by it y of hiazide 00:00: 04:59 mouth [place] 10-25 mg 00 :00 daily for Medica l per tablet 30 days. [facility] montelukast Yes [id number] 10mg Take 1 Univers 10 mg 9-02 tablet by ity of tablet 00:00: mouth [place] 00 daily. [facility] montelukast Yes [id number] 10mg Take 1 Univers 10 mg 9-02 tablet by ity of tablet 00:00: mouth [place] 00 daily. [facility] montelukast Yes [id number] 10mg Take 1 Univers 10 mg 9-02 tablet by ity of tablet 00:00: mouth [place] 00 daily. [facility] montelukast Yes [id number] 10mg Take 1 Univers 10 mg 9-02 tablet by ity of tablet 00:00: mouth [place] 00 daily. [facility] montelukast 2020- No [id number] 10mg Take 1 Univers 10 mg 9-02 12-29 tablet by ity of tablet 00:00: 00:00 mouth [place] 00 :[address] [facility] Branch albuterol Yes [id number] 2{puff} Inhale 2 Univers 90 9-01 Puffs ity of mcg/actuati 00:00: every 6 [place] on inhaler 00 (six) Medical hours as Branch needed for Wheezing or Shortness of Breath. albuterol Yes [id number] 2{puff} Inhale 2 Univers 90 9-01 Puffs ity of mcg/actuati 00:00: every 6 [place] on inhaler 00 (six) Medical hours as Branch needed for Wheezing or Shortness of Breath. albuterol 2020- No [id number] 2{puff} Inhale 2 Univers 90 9-01 10-11 Puffs ity of mcg/actuati 00:00: 00:00 every 6 [place] inhaler 00 :00 (six) Medical hours as Branch needed for Wheezing or Shortness of Breath. sulfamethox No 1mg azole 800 8-10 mg-trimetho 00:00: prim 160 mg 00 tablet sulfamethox 0 No 1mg azole 800 8-10 mg-trimetho 00:00: prim 160 mg 00 tablet proMETHazin 2020- No [id number] 25mg Take 1 Univers e 25 mg 8-07 10-07 tablet by ity of tablet 00:00: 00:00 mouth [place] 00 :00 every 6 Medical (six) Branch hours as needed for Nausea and Vomiting (N/V). proMETHazin 2020- No [id number] 25mg Take 1 Univers e 25 mg 8-07 10-07 tablet by ity of tablet 00:00: 00:00 mouth [place] 00 :00 every 6 Medical (six) Branch hours as needed for Nausea and Vomiting (N/V). fluticasone Yes [id number] 1{spray Use 1 Univers propionate 6-03 } [place] in ity o f 50 00:00: each [place] mcg/actuati 00 nostril Medic al on nasal daily. Branch spray fluticasone Yes [id number] 1{spray Use 1 Univers propionate 6-03 } [place] in ity o f 50 00:00: each [place] mcg/actuati 00 nostril Medic al on nasal daily. Branch spray fluticasone 0 Yes [id number] 1{spray Use 1 Univers propionate 6-03 } [place] in ity o f 50 00:00: each [place] mcg/actuati 00 nostril Medic al on nasal daily. Branch spray fluticasone Yes [id number] 1{spray Use 1 Univers propionate 6-03 } [place] in ity o f 50 00:00: each [place] mcg/actuati 00 nostril Medic al on nasal daily. Branch spray fluticasone Yes [id number] 1{spray Use 1 Univers propionate 6-03 } [place] in ity o f 50 00:00: each [place] mcg/actuati 00 nostril Medic al on nasal daily. Branch spray fluticasone Yes [id number] 1{spray Use 1 Univers propionate 6-03 } [place] in ity o f 50 00:00: each [place] mcg/actuati 00 nostril Medic al on nasal daily. Branch spray fluticasone Yes [id number] 1{spray Use 1 Univers propionate 6-03 } [place] in ity o f 50 00:00: each [place] mcg/actuati 00 nostril Medic al on nasal daily. Branch spray gabapentin 2020- No [id number] 100mg Take 1 Univers 100 mg 04-18 [id number] capsule by ity of capsule 00:00: 00:00 mouth 3 [place] 00 :00 (three) Medical times Branch daily. Take only at night if it make you drowsy gabapentin 2020- No [id number] 100mg Take 1 Univers 100 mg 04-18 [id number] capsule by ity of capsule 00:00: 00:00 mouth 3 [place] 00 :00 (three) Medical times Branch daily. Take only at night if it make you drowsy SUMAtriptan 2020-0 Yes [id number] [place] 1 tab Univers 25 mg 6-16 po x1 for ity of tablet 00:00: headache,[facility] 00 ay repeat Medical after 2 Branch hours, max 200 mg/24 hours SUMAtriptan 2020-0 Yes [id number] [place] 1 tab Univers 25 mg 6-16 po x1 for ity of tablet 00:00: headache,[facility] 00 ay repeat Medical after 2 Branch hours, max 200 mg/24 hours SUMAtriptan 2020-0 Yes [id number] [place] 1 tab Univers 25 mg 6-16 po x1 for ity of tablet 00:00: headache,[place] [address] ay repeat Medical after 2 Branch hours, max 200 mg/24 hours SUMAtriptan 2020-0 Yes [id number] [place] 1 tab Univers 25 mg 6-16 po x1 for ity of tablet 00:00: headache,[place] [address] ay repeat Medical after 2 Branch hours, max 200 mg/24 hours SUMAtriptan 2020-0 Yes [id number] [place] 1 tab Univers 25 mg 6-16 po x1 for ity of tablet 00:00: headache,m [place] 00 ay repeat Medical after 2 Branch hours, max 200 mg/24 hours SUMAtriptan 2020-0 Yes [id number] [place] 1 tab Univers 25 mg 6-16 po x1 for ity of tablet 00:00: headache,m [place] 00 ay repeat Medical after 2 Branch hours, max 200 mg/24 hours SUMAtriptan 2020-0 Yes [id number] [place] 1 tab Univers 25 mg 6-16 po x1 for ity of tablet 00:00: headache,m [place] [address] ay repeat Medical after 2 Branch hours, max 200 mg/24 hours Blood 2020-0 Yes [id number] Use as Univer s Pressure 3-09 directed ity of Monitor Kit 00:00: [place] [facility] Blood 2020-0 Yes [id number] Use as Univer s Pressure 3-09 directed ity of Monitor Kit 00:00: [place] [facility] Blood 2020-0 Yes [id number] Use as Univer s Pressure 3-09 directed ity of Monitor Kit 00:00: [place] [facility] Blood 2020-0 Yes [id number] Use as Univer s Pressure 3-09 directed ity of Monitor Kit 00:00: [place] [facility] Blood 2020-0 Yes [id number] Use as Univer s Pressure 3-09 directed ity of Monitor Kit 00:00: [place] [facility] Blood 2020-0 Yes [id number] Use as Univer s Pressure 3-09 directed ity of Monitor Kit 00:00: [place] [facility] Blood 2020-0 Yes [id number] Use as Univer s Pressure 3-09 directed ity of Monitor Kit 00:00: [place] [facility] citalopram 2018-03 Yes TAKE 1 2 Uni vers 20 mg 2-30 (ONE HALF) ity of tablet 00:00: TABLET BY [place] MOUTH ONCE Medical DAILY FOR Branch 7 DAYS THEN 1 TABLET DAILY THEREAFTER citalopram 2018-03 Yes TAKE 1 2 Uni vers 20 mg 2-30 (ONE HALF) ity of tablet 00:00: TABLET BY [place] 00 MOUTH ONCE Medical DAILY FOR Branch 7 DAYS THEN 1 TABLET DAILY THEREAFTER citalopram 2018-03 Yes TAKE 1 2 Uni vers 20 mg 2-30 (ONE HALF) ity of tablet 00:00: TABLET BY [place] 00 MOUTH ONCE Medical DAILY FOR Branch 7 DAYS THEN 1 TABLET DAILY THEREAFTER citalopram 2018-03 Yes TAKE 1 2 Uni vers 20 mg 2-30 (ONE HALF) ity of tablet 00:00: TABLET BY [place] 00 MOUTH ONCE Medical DAILY FOR Branch 7 DAYS THEN 1 TABLET DAILY THEREAFTER citalopram 2018-03 Yes TAKE 1 2 Uni vers 20 mg 2-30 (ONE HALF) ity of tablet 00:00: TABLET BY [place] 00 MOUTH ONCE Medical DAILY FOR Branch 7 DAYS THEN 1 TABLET DAILY THEREAFTER citalopram 2018-03 Yes TAKE 1 2 Uni vers 20 mg 2-30 (ONE HALF) ity of tablet 00:00: TABLET BY [place] 00 MOUTH ONCE Medical DAILY FOR Branch 7 DAYS THEN 1 TABLET DAILY THEREAFTER citalopram 2018-03 Yes TAKE 1 2 Uni vers 20 mg 2-30 (ONE HALF) ity of tablet 00:00: TABLET BY [place] 00 MOUTH ONCE Medical DAILY FOR Branch 7 DAYS THEN 1 TABLET DAILY THEREAFTER tamoxifen 2017-03 2018- No 20mg Take 20 mg U nivers (NOLVADEX) 0-19 10-19 by mouth ity of 20 mg 14:10: 00:00 daily. [place] tablet 14 :00 Medical Branch aspirin-eliazar 2017- No 1{tbl} Take 1 Tab Univers taminophen- 11-20 by mouth ity of caffeine 18:17: 00:00 every 6 [place] (MIGRAINE 00 :00 (six) Medical RELIEF) hours as Branch [id number] needed. mg per tablet losartan 2017- No 50mg Take 50 mg Un teagan (COZAAR) 50 06-03 by mouth 2 i ty of mg tablet 09:52: 00:00 (two) [place] 55 :00 times Medical daily. Branch loratadine 2014-03 2017- No [id number] 10mg Take 1 Tab Univers (CLARITIN) 05-02- by mouth ity of 10 mg 00:00: 00:00 daily. [place] tablet 00 :00 Medical Branch fluticasone 2014-03 2017- No [id number] 2{spray Use 2 Univers 50 -18 06-03 } Sprays in ity of mcg/actuati 00:00: 00:00 each [place] on nasal 00 :00 nostril Medical spray daily. Branch Immunizations Ordered Filled Immunization Date Status Comments [facility] e Immunization Name Name SARS-COV-2 COVID-19 2021-06-26 Completed Unive rsity of PFIZER GORDON-SUCROSE 00:00:00 [place] [facility] Branch SARS-COV-2 COVID-19 2020-06-25 Completed Unive rsity of PFIZER VACCINE 00:00:00 [place] [facility] Branch SARS-COV-2 COVID-19 2020-06-25 Completed Unive rsity of PFIZER VACCINE 00:00:00 [place] [facility] adonay Branch SARS-COV-2 COVID-19 2020-06-25 Completed Unive rsity of PFIZER VACCINE 00:00:00 [place] [facility] Branch SARS-COV-2 COVID-19 2020-06-25 Completed Unive rsity of PFIZER VACCINE 00:00:00 [place] [facility] adonay Branch SARS-COV-2 COVID-19 2020-06-25 Completed Unive rsity of PFIZER VACCINE 00:00:00 [place] [facility] adonay Branch SARS-COV-2 COVID-19 2020-06-25 Completed Unive rsity of PFIZER VACCINE 00:00:00 [place] [facility] adonay Branch SARS-COV-2 COVID-19 2020-06-25 Completed Unive rsity of PFIZER VACCINE 00:00:00 [place] [facility] adonay Branch SARS-COV-2 COVID-19 2020-06-04 Completed Unive rsity of PFIZER VACCINE 00:00:00 [place] [facility] adonay Branch SARS-COV-2 COVID-19 2020-06-04 Completed Unive rsity of PFIZER VACCINE 00:00:00 [place] [facility] adonay Branch SARS-COV-2 COVID-19 2020-06-04 Completed Unive rsity of PFIZER VACCINE 00:00:00 [place] [facility] adonay Branch SARS-COV-2 COVID-19 2020-06-04 Completed Unive rsity of PFIZER VACCINE 00:00:00 [place] [facility] Branch SARS-COV-2 COVID-19 2020-06-04 Completed Unive rsity of PFIZER VACCINE 00:00:00 [place] [facility] adonay Branch SARS-COV-2 COVID-19 2020-06-04 Completed Unive rsity of PFIZER VACCINE 00:00:00 [place] [facility] adonay Branch SARS-COV-2 COVID-19 2020-06-04 Completed Unive rsity of PFIZER VACCINE 00:00:00 [facility] Branch Influenza High Dose 2020-01-18 Completed Unive rsity of Quad 00:00:00 [facility] Influenza High Dose 2020-01-18 Completed Unive rsity of Quad 00:00:00 [facility] Influenza High Dose 2020-01-18 Completed Unive rsity of Quad 00:00:00 [facility] Influenza High Dose 2020-01-18 Completed Unive rsity of Quad 00:00:00 [facility] Influenza High Dose 2020-01-18 Completed Unive rsity of Quad 00:00:00 [facility] Influenza High Dose 2020-01-18 Completed Unive rsity of Quad 00:00:00 [facility] Influenza High Dose 2020-01-18 Completed Unive rsity of Quad 00:00:00 [facility] Influenza Virus 2018-12-23 Completed Universit y of Vaccine Quad .5 mL 00:00:00 [place] [facility] IM 6+ MO Branch Influenza Virus 2018-12-23 Completed Universit y of Vaccine Quad .5 mL 00:00:00 [place] [facility] IM 6+ MO Branch Influenza Virus 2018-12-23 Completed Universit y of Vaccine Quad .5 mL 00:00:00 [place] [facility] IM 6+ MO Branch Influenza Virus 2018-12-23 Completed Universit y of Vaccine Quad .5 mL 00:00:00 [place] [facility] IM 6+ MO Branch Influenza Virus 2018-12-23 Completed Universit y of Vaccine Quad .5 mL 00:00:00 [place] [facility] IM 6+ MO Branch Influenza Virus 2018-12-23 Completed Universit y of Vaccine Quad .5 mL 00:00:00 [place] [facility] IM 6+ MO Branch Influenza Virus 2018-12-23 Completed Universit y of Vaccine Quad .5 mL 00:00:00 [place] [facility] IM 6+ MO Branch TDAP 2018-04-25 Completed University of 00:00:00 [place] [facility] [place] Influenza Virus 2018-04-25 Completed Universit y of Vaccine Quad .5 mL 00:00:00 [place] [facility] IM 6+ MO Branch TDAP 2018-04-25 Completed University of 00:00:00 [place] [facility] [place] Influenza Virus 2018-04-25 Completed Universit y of Vaccine Quad .5 mL 00:00:00 [place] [facility] IM 6+ MO Branch TDAP 2018-04-25 Completed University of 00:00:00 [place] [facility] [place] Influenza Virus 2018-04-25 Completed Universit y of Vaccine Quad .5 mL 00:00:00 [place] [facility] IM 6+ MO Branch TDAP 2018-04-25 Completed University of 00:00:00 [facility] Influenza Virus 2018-04-25 Completed Universit y of Vaccine Quad .5 mL 00:00:00 [place] [facility] IM 6+ MO Branch TDAP 2018-04-25 Completed University of 00:00:00 [facility] Influenza Virus 2018-04-25 Completed Universit y of Vaccine Quad .5 mL 00:00:00 [place] [facility] IM 6+ MO Branch TDAP 2018-04-25 Completed University of 00:00:00 [facility] Influenza Virus 2018-04-25 Completed Universit y of Vaccine Quad .5 mL 00:00:00 [place] [facility] IM 6+ MO Branch TDAP 2018-04-25 Completed University of 00:00:00 [facility] Influenza Virus 2018-04-25 Completed Universit y of Vaccine Quad .5 mL 00:00:00 [facility] IM 6+ MO Branch HEP B, Adult Dosage 2017-03-25 Completed Unive rsity of 00:00:00 [place] [facility] HEP B, Adult Dosage 2017-03-25 Completed Unive rsity of 00:00:00 [place] [facility] HEP B, Adult Dosage 2017-03-25 Completed Unive rsity of 00:00:00 [place] [facility] HEP B, Adult Dosage 2017-03-25 Completed Unive rsity of 00:00:00 [place] [facility] HEP B, Adult Dosage 2017-03-25 Completed Unive rsity of 00:00:00 [place] [facility] HEP B, Adult Dosage 2017-03-25 Completed Unive rsity of 00:00:00 [place] [facility] HEP B, Adult Dosage 2017-03-25 Completed Unive rsity of 00:00:00 [place] [facility] HEP B, Adult Dosage 2017-02-25 Completed Unive rsity of 00:00:00 [place] [facility] HEP B, Adult Dosage 2017-02-25 Completed Unive rsity of 00:00:00 [place] [facility] HEP B, Adult Dosage 2017-02-25 Completed Unive rsity of 00:00:00 [place] [facility] HEP B, Adult Dosage 2017-02-25 Completed Unive rsity of 00:00:00 [place] [facility] HEP B, Adult Dosage 2017-02-25 Completed Unive rsity of 00:00:00 [place] [facility] HEP B, Adult Dosage 2017-02-25 Completed Unive rsity of 00:00:00 [place] [facility] HEP B, Adult Dosage 2017-02-25 Completed Unive rsity of 00:00:00 [facility] Influenza Virus 2017-01-06 Completed Universit y of Vaccine Quad IM 3+ 00:00:00 [facility] Influenza Virus 2017-01-06 Completed Universit y of Vaccine Quad IM 3+ 00:00:00 [facility] Influenza Virus 2017-01-06 Completed Universit y of Vaccine Quad IM 3+ 00:00:00 [facility] Influenza Virus 2017-01-06 Completed Universit y of Vaccine Quad IM 3+ 00:00:00 [facility] Influenza Virus 2017-01-06 Completed Universit y of Vaccine Quad IM 3+ 00:00:00 [facility] Influenza Virus 2017-01-06 Completed Universit y of Vaccine Quad IM 3+ 00:00:00 [facility] Influenza Virus 2017-01-06 Completed Universit y of Vaccine Quad IM 3+ 00:00:00 [facility] Influenza Virus 2016-01-31 Completed Universit y of Vaccine Quad IM 3+ 00:00:00 [facility] Influenza Virus 2016-01-31 Completed Universit y of Vaccine Quad IM 3+ 00:00:00 [facility] Influenza Virus 2016-01-31 Completed Universit y of Vaccine Quad IM 3+ 00:00:00 [facility] Influenza Virus 2016-01-31 Completed Universit y of Vaccine Quad IM 3+ 00:00:00 [facility] Influenza Virus 2016-01-31 Completed Universit y of Vaccine Quad IM 3+ 00:00:00 [facility] Influenza Virus 2016-01-31 Completed Universit y of Vaccine Quad IM 3+ 00:00:00 [facility] Influenza Virus 2016-01-31 Completed Universit y of Vaccine Quad IM 3+ 00:00:00 [facility] Influenza Virus 2016-01-31 Completed Universit y of Vaccine Quad IM 3+ 00:00:00 [facility] Influenza Virus 2015-03-01 Completed Universit y of Vaccine Quad IM 3+ 00:00:00 [facility] Influenza Virus 2015-03-01 Completed Universit y of Vaccine Quad IM 3+ 00:00:00 [facility] Influenza Virus 2015-03-01 Completed Universit y of Vaccine Quad IM 3+ 00:00:00 [facility] Influenza Virus 2015-03-01 Completed Universit y of Vaccine Quad IM 3+ 00:00:00 [facility] Influenza Virus 2015-03-01 Completed Universit y of Vaccine Quad IM 3+ 00:00:00 [facility] Branch Influenza Virus 2015-03-01 Completed Universit y of Vaccine Quad IM 3+ 00:00:00 [facility] Branch Influenza Virus 2015-03-01 Completed Universit y of Vaccine Quad IM 3+ 00:00:00 [facility] Branch Influenza Virus 2015-03-01 Completed Universit y of Vaccine Quad IM 3+ 00:00:00 [facility] Branch Vital Signs Vital Name Observation Time Observation Value Comments Source Systolic blood 2021-02-07 20:13:00 138 mm[Hg] Univer sity of pressure [facility] Branch Diastolic blood 2021-02-07 20:13:00 86 mm[Hg] Unive rsity of pressure [facility] Branch Heart rate 2021-02-07 20:13:00 106 /min Universi ty of [facility] Body temperature 2021-02-07 20:13:00 36.72 Jeanette Univ ersity of [facility] Branch Respiratory rate 2021-02-07 20:13:00 18 /min Univ ersity of [place] [facility] Oxygen saturation in 2021-02-07 20:13:00 100 /min University of Arterial blood by [place] [employer] Pulse oximetry Branch Systolic blood 2020-12-19 16:16:00 118 mm[Hg] Univer sity of pressure [facility] Branch Diastolic blood 2020-12-19 16:16:00 70 mm[Hg] Unive rsity of pressure [facility] Heart rate 2020-12-19 16:16:00 96 /min Universi ty [facility] Body temperature 2020-12-19 16:16:00 36.56 Jeanette Univ ersity of [place] [facility] Respiratory rate 2020-12-19 16:16:00 18 /min Univ ersity of [facility] Body height 2020-12-19 16:16:00 137.2 cm Universi ty [facility] Body weight 2020-12-19 16:16:00 83.235 kg Universi ty [facility] BMI 2020-12-19 16:16:00 44.24 kg/m2 Universi ty [facility] Oxygen saturation in 2020-12-19 16:16:00 97 /min University of Arterial blood by Janrain adonay Pulse oximetry Branch Systolic blood 2016-02-29 17:28:00 132 mm[Hg] Univer sity of pressure [place] [facility] Diastolic blood 2016-02-29 17:28:00 85 mm[Hg] Unive rsity of pressure [facility] Heart rate 2016-02-29 17:28:00 76 /min Universi ty [facility] Medical Dew[facility] Body temperature 2016-02-29 17:28:00 36.83 Jeanette [facility] [place] Res[facility] 2016-02-29 17:28:00 18 /min [facility] [place] Body weight 2016-02-29 17:28:00 73.483 kg [facility] Medical Dew[facility] BMI 2016-02-29 17:28:00 35.06 kg/m2 [facility] Oxygen saturation in 2016-02-29 17:28:00 98 /min [facility] Arterial blood by [facility] Pulse oximetry Branch BP Systolic 2022-04-01 15:32:00 115 mm[Hg] BP Diastolic 2022-04-01 15:32:00 78 mm[Hg] Weight Measured 2022-04-01 15:32:00 156.00 pounds Height Measured 2022-04-01 15:32:00 56.69 inches Body Temperature 2022-04-01 15:32:00 98.00 degrees Heart Rate 2022-04-01 15:32:00 88.00 /min Respiratory Rate 2022-04-01 15:32:00 16.00 /min Weight Measured 2022-03-10 10:55:00 158.00 pounds Height Measured 2022-03-10 10:55:00 56.69 inches Body Temperature 2022-03-10 10:55:00 98.00 degrees Heart Rate 2022-03-10 10:55:00 62.00 /min Respiratory Rate 2022-03-10 10:55:00 16.00 /min BP Systolic 2022-03-10 10:55:00 111 mm[Hg] BP Diastolic 2022-03-10 10:55:00 71 mm[Hg] BP Systolic 2021-11-06 08:05:00 103 mm[Hg] BP Diastolic 2021-11-06 08:05:00 72 mm[Hg] Weight Measured 2021-11-06 08:05:00 150.20 pounds Height Measured 2021-11-06 08:05:00 56.69 inches Body Temperature 2021-11-06 08:05:00 97.70 degrees Heart Rate 2021-11-06 08:05:00 61.00 /min Respiratory Rate 2021-11-06 08:05:00 16.00 /min BP Systolic 2021-09-02 11:31:00 102 mm[Hg] BP Diastolic 2021-09-02 11:31:00 64 mm[Hg] Weight Measured 2021-09-02 11:31:00 150.80 pounds Height Measured 2021-09-02 11:31:00 56.69 inches Body Temperature 2021-09-02 11:31:00 98.00 degrees Heart Rate 2021-09-02 11:31:00 67.00 /min Respiratory Rate 2021-09-02 11:31:00 BP Systolic 2021-09-02 11:20:00 BP Diastolic 2021-09-02 11:20:00 Weight Measured 2021-09-02 11:20:00 Height Measured 2021-09-02 11:20:00 Body Temperature 2021-09-02 11:20:00 Heart Rate 2021-09-02 11:20:00 Respiratory Rate 2021-09-02 11:20:00 BP Systolic 2021-08-12 08:22:00 113 mm[Hg] BP Diastolic 2021-08-12 08:22:00 78 mm[Hg] Weight Measured 2021-08-12 08:22:00 151.40 pounds Height Measured 2021-08-12 08:22:00 56.69 inches Body Temperature 2021-08-12 08:22:00 97.70 degrees Heart Rate 2021-08-12 08:22:00 64.00 /min Respiratory Rate 2021-08-12 08:22:00 16.00 /min BP Systolic 2021-07-16 14:33:00 119 mm[Hg] BP Diastolic 2021-07-16 14:33:00 78 mm[Hg] Weight Measured 2021-07-16 14:33:00 155.80 pounds Height Measured 2021-07-16 14:33:00 56.69 inches Body Temperature 2021-07-16 14:33:00 98.70 degrees Heart Rate 2021-07-16 14:33:00 70.00 /min Respiratory Rate 2021-07-16 14:33:00 16.00 /min BP Systolic 2021-05-15 09:26:00 104 mm[Hg] BP Diastolic 2021-05-15 09:26:00 67 mm[Hg] Weight Measured 2021-05-15 09:26:00 159.40 pounds Height Measured 2021-05-15 09:26:00 56.69 inches Body Temperature 2021-05-15 09:26:00 98.10 degrees Heart Rate 2021-05-15 09:26:00 74.00 /min Respiratory Rate 2021-05-15 09:26:00 16.00 /min BP Systolic 2021-04-15 08:22:00 BP Diastolic 2021-04-15 08:22:00 Weight Measured 2021-04-15 08:22:00 Height Measured 2021-04-15 08:22:00 Body Temperature 2021-04-15 08:22:00 Heart Rate 2021-04-15 08:22:00 Respiratory Rate 2021-04-15 08:22:00 BP Systolic 2021-04-15 08:05:00 176 mm[Hg] BP Diastolic 2021-04-15 08:05:00 89 mm[Hg] Weight Measured 2021-04-15 08:05:00 166.70 pounds Height Measured 2021-04-15 08:05:00 56.69 inches Body Temperature 2021-04-15 08:05:00 98.10 degrees Heart Rate 2021-04-15 08:05:00 78.00 /min Respiratory Rate 2021-04-15 08:05:00 16.00 /min BP Systolic 2021-03-04 13:22:00 138 mm[Hg] BP Diastolic 2021-03-04 13:22:00 91 mm[Hg] Weight Measured 2021-03-04 13:22:00 Height Measured 2021-03-04 13:22:00 Body Temperature 2021-03-04 13:22:00 98.30 degrees Heart Rate 2021-03-04 13:22:00 89.00 /min Respiratory Rate 2021-03-04 13:22:00 18.00 /min Procedures Procedure Date / Time Performed Performing Clinician Sour e SARS-COV-2 COVID-19 2021-06-26 17:10:42 Doctor Unassigned, No [facility] [place] VACCINE 12 Name Medical Branch YRS+,0.3ML,IM (PFIZER - SILVER TOP) POCT HEMOGLOBIN A1C 2020-12-19 16:55:00 Brea Malone of [place] TEST aRdha [facility] Plan of Care Planned Activity Planned Date Details Comments Source Goal Plan of Care Note [code = 41557-2] Goal Plan of Care Note [code = 31033-2] Goal Plan of Care Note [code = 15644-9] Goal Plan of Care Note [code = 47234-7] Goal Plan of Care Note [code = 71434-4] Goal Plan of Care Note [code = 80992-1] Goal Plan of Care Note [code = 38149-5] Goal Plan of Care Note [code = 68867-2] Goal Plan of Care Note [code = 85754-9] Goal Plan of Care Note [code = 79561-2] Goal Plan of Care Note [code = 46599-1] Goal Plan of Care Note [code = 67259-0] Goal Plan of Care Note [code = 83462-1] Goal Plan of Care Note [code = 45521-8] Goal Plan of Care Note [code = 65081-4] Goal Plan of Care Note [code = 72960-4] Goal Plan of Care Note [code = 06117-2] Goal Plan of Care Note [code = 30810-4] Goal Plan of Care Note [code = 12513-9] Goal Plan of Care Note [code = 06278-3] Goal Plan of Care Note [code = 88157-8] Goal Plan of Care Note [code = 43086-2] Goal Plan of Care Note [code = 53884-6] Goal Plan of Care Note [code = 26691-1] Goal Plan of Care Note [code = 62068-1] Goal Plan of Care Note [code = 21645-2] Goal Plan of Care Note [code = 02041-6] Goal Plan of Care Note [code = 21598-5] Goal Plan of Care Note [code = 81572-8] Goal Plan of Care Note [code = 00972-2] Goal Plan of Care Note [code = 63635-8] Goal Plan of Care Note [code = 69937-6] Goal Plan of Care Note [code = 05250-4] Goal Plan of Care Note [code = 26680-2] Goal Plan of Care Note [code = 75450-6] Goal Plan of Care Note [code = 87688-6] Goal Plan of Care Note [code = 47548-8] Goal Plan of Care Note [code = 50595-0] Goal Plan of Care Note [code = 88945-0] Goal Plan of Care Note [code = 77314-8] Goal Plan of Care Note [code = 24041-4] Goal Plan of Care Note [code = 92858-4] Goal Plan of Care Note [code = 91594-7] Encounters Start End Encounter Admission Attending Care Care Encounter Source Date/Time Date/Time Type Type Clinicians Facility Department ID 2021-01-09 Emergency [facility] [id number] [facility] [place] [facility] 2022-05-05 2022-05-05 Outpatient SFA SFA [id number] Miki 08:58:55 08:58:55 0221 F Jun 2022-04-03 2022-04-03 Outpatient SFA SFA [id number] Miki 08:25:29 08:25:29 0120 [facility] 2022-04-01 2022-04-01 Outpatient SFA SFA [id number] Miki 15:35:15 15:35:15 0118 F [place] 2022-04-01 2022-04-01 Outpatient [id number] 00:00:00 00:00:00 Visit [id number] 2022-03-10 2022-03-10 Outpatient SFA SFA [id number] Miki 10:58:28 10:58:28 1227 [facility] 2022-03-10 2022-03-10 Outpatient [id number] 00:00:00 00:00:00 Visit [id number] 2021-11-162021-11-17 Inpatient EM CJ HartPM INTE.02 [id number] [facility] 19:24:00 13:18:00 Musaddiq 68 [facility] 2021-11-17 2021-11-17 Outpatient DINH Hart LABO [id number] [facility] 00:47:00 00:47:00 Musaddiq 59 [facility] 2021-06-26 2021-06-26 Imm/Inj Vaccine, Adc Family Medicine [facility] 1.2.840.114 [id number] Univers 11:30:00 11:33:33 Visit Phillip Reis 350.1.13 .10 ity of [place] PROF[place] [id number] Ok dical [address] 2021-06-26 2021-06-26 Outpatient Becca REIS [facility] [id number] Univers 11:30:00 11:30:00 PHILLIP workman [facility] 2021-04-29 2021-04-29 Telephone Team, [facility] ASTER 1.2.840.114 [id number] Univers 00:00:00 00:00:00 Health DREW 350.1.13.10 it y of [facility] 4.2.7.2.686 [place] [id number] [place] [id number] Branch 2021-03-10 2021-03-10 Refill KRYSTAL Palomino 1.2.840.114 [id number] Univers 00:00:00 00:00:00 Bianka PEDIATRIC 350.1.13.10 [place] [id number] [facility] PRIMARY 314 Branch CARE CLINIC 2021-02-07 2021-02-07 Emergency EM Tae Morales [facility] AERS [id number] [facility] 14:32:00 16:50:00 18 [facility] 2021-02-07 2021-02-07 Nurse Nurse, Cassie RICE 1.2.840. 114 [id number] Univers 13:56:47 14:11:47 Visit Unknown, Attending PEDIATRIC 350.1.13. 10 [place] [id number] [address] 2021-02-07 2021-02-07 Outpatient R UNKNOWN, ATTENDING [facility] [id number] Univers 14:00:00 14:00:00 DALILA ROGERS [facility] 2020-12-19 2020-12-19 Outpatient R KIRA [facility] [id number] Univers 11:30:00 11:30:00 , RADHA silva y [facility] 2020-12-19 2020-12-19 Office Kira Rice 1.2.840.114 [id number] Univers 11:10:23 11:25:23 Visit , Radha Pediatric 350.1.13.10 it[place] [id number] [address] 2020-12-19 2020-12-19 Bradly Erwin 1.2.840.114 [id number] Univers 00:00:00 00:00:00 Y Pediatric 350.1.13.10 it[place] [id number] [address] 2020-11-28 2020-11-28 Office Krystal Palomino 1.2.840.114 [id number] Univers 11:15:25 12:01:06 Visit Bianka Pediatric 350.1.13.10 ity [place] [id number] [address] 2020-11-28 2020-11-28 Outpatient R STAR [facility] [id number] Univers 11:30:00 11:30:00 BIANKA workman [facility] 2020-11-28 2020-11-28 Letter Doctor RODARTE 1.2.840.114 [id number] Univers 00:00:00 00:00:00 (Out) Unassigned, DREW 350.1.13.10 ity of [place] [facility] 4.2.7.2.686 Luis as [phone] [address] 2020-11-28 2020-11-28 Letter Doctor RODARTE 1.2.840.114 [id number] Univers 00:00:00 00:00:00 (Out) Unassigned, DREW 350.1.13.10 ity of [place] [facility] 4.2.7.2.686 Luis as [id number] [address] 2020-11-14 2020-11-14 Office Krystal Palomino 1.2.840.114 [id number] Univers 11:01:16 12:15:02 Visit Bianka Pediatric 350.1.13.10 ity [place] [id number] [address] 2020-11-14 2020-11-14 Office Krystal Palomino 1.2.840.114 [id number] Univers 11:01:16 12:15:02 Visit Bianka Pediatric 350.1.13.10 ity [place] [id number] [address] 2020-11-14 2020-11-14 Outpatient R STAR [facility] [id number] Univers 11:30:00 11:30:00 BIANKA ity of [facility] 2020-11-11 2020-11-11 Telephone Bradly Patten 1.2.840.114 [id number] Univers 00:00:00 00:00:00 Y Pediatric 350.1.13.10 ity [place] [id number] [address] 2020-11-11 2020-11-11 Telephone Bradly Patten 1.2.840.114 [id number] Univers 00:00:00 00:00:00 Y Pediatric 350.1.13.10 it[place] [id number] [address] 2020-10-25 2020-10-25 Richelle [place] [facility] 1.2.840.114 [id number] Univers 00:00:00 00:00:00 ([facility] 350.1.13.10 [place] [facility] [phone] [address] ([facility]) 2020-10-23 2020-10-23 Office Gagandeep [facility] 1.2.840.114 [id number] Univers 16:16:47 16:56:02 Visit Dulce SPECIALTY 350.1.13.10 it[place] of [place]2.[place] [id number] Ok haseeb ROBLES [address] [place] [address] 2020-10-23 2020-10-23 [facility] 1.2.840.114 [id number] Univers 16:16:47 16:56:02 Visit Dulce SPECIALTY 350.1.13.10 it[place] [id number] Ok haseeb ROBLES [address] [place] [address] 2020-10-23 2020-10-23 Outpatient R GAGANDEEP [facility] [id number] Univers 16:40:00 16:40:00 DULCE ity of [facility] 2020-10-23 2020-10-23 Letter Krystal Nolasco 1.2.840.114 [id number] Univers 00:00:00 00:00:00 (Out) Angelika Pediatric 350.1.13.10 ity of [place] [id number] [address] 2020-10-20 2020-10-20 Letter ASTER Roth 1.2.840.114 [id number] Univers 00:00:00 00:00:00 (Out) Katlin RUSSELL 350.1.13.10 it y of HOSPITAL 4.2.7.2.686 Luis as [id number] [address] 2020-10-19 2020-10-19 Urgent Krystal Nolasco 1.2.840.114 [id number] Univers 09:53:22 13:39:58 Care Angelika Pediatric 350.1.13.10 ity of [place] [id number] [address] 2020-10-19 2020-10-19 Outpatient Becca NOLASCO [facility] [id number] Univers 12:30:00 12:30:00 ANGELIKA ity o f [facility] 2020-10-19 2020-10-19 Nurse ASTER Roth 1.2.840.114 [id number] Univers 00:00:00 00:00:00 Triage Katlin Martin DREW 350.1.13.10 it y of HOSPITAL 4.2.7.2.686 [place] as [phone] [address] 2020-09-20 2020-09-20 Office Berenice Fox 1.2.840.114 [id number] Univers 09:45:53 10:15:53 Visit Ali Pediatric 350.1.13.10 [place] [phone] [address] 2020-09-20 2020-09-20 Outpatient BERENICE MARTIN [facility] [facility] [id number] Univers 10:00:00 10:00:00 ity [facility] 2020-08-30 2020-08-30 Outpatient Becca DONIS [facility] [id number] Univers 16:00:00 15:55:31 DULCE ity [facility] 2020-08-30 2020-08-30 [facility] 1.2.840.114 [id number] Univers 15:30:51 15:55:31 Visit Dulce SPECIALTY 350.1.13.10 [place] [phone] [address] 2020-08-23 2020-08-23 Outpatient Becca DONIS [facility] [id number] Univers 14:40:00 14:40:00 DULCE ity [facility] 2020-08-15 2020-08-15 Office Krystal Palomino 1.2.840.114 [id number] Univers 09:16:20 09:46:20 Visit Bianka Pediatric 350.1.13.10 it[place] [id number] [address] 2020-08-15 2020-08-15 Outpatient R STAR [facility] [id number] Univers 09:30:00 09:30:00 BIANKA ity [facility] 2020-08-05 2020-08-05 Letter ASTER Roth 1.2.840.114 [id number] Univers 00:00:00 00:00:00 (Out) Katlin Martin DREW 350.1.13.10 it y of HOSPITAL 4.2.7.2.686 [place] as [phone] [place] [address] [address] 2020-08-04 2020-08-04 Urgent Palomino, Maria Krystal 1.2.840.1 14 [id number] Univers 09:07:55 09:49:09 Care Unknown, Attending Pediatric 350.1.13. 10 ity of [place] [phone] [facility] 370 [facility] 2020-08-04 2020-08-04 Outpatient R SHAKIR, [facility] [id number] Univers 09:45:00 09:45:00 ATTENDING ity [facility] 2020-08-02 2020-08-02 Outpatient R BRADLY PATTEN [facility] [id number] Univers 11:30:00 11:30:00 ity [facility] 2020-07-25 2020-07-25 Hospital Bradly Patten 1.2.840.114 [id number] Univers 13:00:00 23:59:00 Encounter Y Pediatric 350.1.13.10 ity of [place] [id number] [facility] [address] [facility] 2020-07-25 2020-07-25 Office Bradly Patten 1.2.840.114 [id number] Univers 09:29:20 16:08:54 Visit Y Pediatric 350.1.13.10 ity of [place] [id number] [facility] [address] [facility] 2020-07-25 2020-07-25 Outpatient R BRADLY PATTEN [facility] [id number] Univers 09:30:00 09:30:[facility] 2020-07-11 2020-07-11 Office Bradly Patten 1.2.840.114 [id number] Univers 14:50:42 16:05:42 Visit Y Pediatric 350.1.13.10 ity of [place] [id number] [facility] [address] [facility] 2020-07-11 2020-07-11 Outpatient BRADLY HOGAN [facility] [id number] Univers 15:00:00 15:00:00 ity [facility] 2020-06-25 2020-06-25 Outpatient Becca RAMIRES [facility] [id number] Univers 15:40:00 14:50:11 JUAN RAMON [facility] 2020-06-07 2020-06-07 Urgent Berenice Fox 1.2.840.114 [id number] Univers 17:34:15 17:49:15 Care Ali Pediatric 350.1.13.10 ity of [place] [id number] [facility] 370 [facility] 2020-06-07 2020-06-07 Outpatient BERENICE MARTIN [facility] [id number] Univers 17:30:00 17:30:00 [facility] [place] [facility] 2020-06-04 2020-06-04 Outpatient Becca RAMIRES [facility] [id number] Univers 14:40:00 14:40:00 JUAN RAMON [facility] 2020-05-17 2020-05-17 Office Gagandeep INSELIN 1.2.840.114 [id number] Univers 14:12:17 15:37:45 Visit Dulce SPECIALTY 350.1.13.10 it[place] AT [id number] [address] 2020-05-17 2020-05-17 Outpatient Becca DONIS [facility] [id number] Univers 14:40:00 14:40:00 DULCE [facility] 2020-04-18 2020-04-18 Office Bradly Patten 1.2.840.114 [id number] Univers 09:24:37 10:23:01 Visit Y Pediatric 350.1.13.10 ity of [place] [id number] [address] 2020-04-18 2020-04-18 Outpatient R BRADLY PATTEN [facility] [id number] Univers 09:45:00 09:45:00 ity of [facility] 2020-04-15 2020-04-15 Telephone Bradly Patten 1.2.840.114 [id number] Univers 00:00:00 00:00:00 Y Pediatric 350.1.13.10 ity of [place] [id number] [address] 2020-04-02 2020-04-02 Office Bradly Patten 1.2.840.114 [id number] Univers 14:34:39 15:12:00 Visit Y Pediatric 350.1.13.10 ity of [place] [id number] [address] 2020-04-02 2020-04-02 Outpatient R BRADLY PATTEN [facility] [id number] Univers 14:45:00 14:45:00 ity of [facility] 2020-02-20 2020-02-20 Refill Bradly Patten 1.2.840.114 [id number] Univers 00:00:00 00:00:00 Y Pediatric 350.1.13.10 ity of [place] [phone] [address] 2020-01-18 2020-01-18 Imm/Inj NurseCassie 1.2.84 0.114 [id number] Univers 14:23:22 14:33:22 Visit Bradly Patten Pediatric 350.1.13.10 ity of [place] [id number] [address] 2020-01-18 2020-01-18 Outpatient R [facility] [id number] Univers 14:30:00 14:30:00 ity of [facility] 2019-12-19 2019-12-19 Krystal Lagunas 1.2.840.114 [id number] 00:00:00 00:00:00 Bianka Pediatric 350.1.13.10 s and 4.2.7.2.686 Adult [phone] Primary [facility] 2019-12-19 2019-12-19 Krystal Lagunas 1.2.840.114 [id number] Univers 00:00:00 00:00:00 Bianka Pediatric 350.1.13.10 ity of [place] [id number] [address] 2019-12-05 2019-12-[address] [facility] 1.2.840.114 [id number] 14:07:06 08:28:52 Visit Tl A SPECIALTY 350.1.13.10 CARE 4.2.7.2.686 CENTER AT [id number] [address] 2019-12-05 2019-12-[address] [facility] 1.2.840.114 [id number] Univers 14:07:06 08:28:52 Visit Tl A SPECIALTY 350.1.13.10 it[place] of [place] [id number] Ok haseeb ROBLES 198 [facility] 2019-12-05 2019-12-05 [facility] 1.2.350.677 [id number] Univers 14:20:49 23:59:00 Encounter Tl A SPECIALTY 350.1.13.10 it[place] AT [id number] Ok haseeb ROBLES 809 [facility] 2019-12-05 2019-12-05 Outpatient R [facility] [id number] Univers 14:45:00 14:45:00 TL ity of [facility] 2019-12-04 2019-12-[address] [facility] 1.2.218.260 [id number] Univers 00:00:00 00:00:00 Tl A SPECIALTY 350.1.13.10 it[place] of [place] AT [phone] Ok willal VICTORY 198 [facility] 2019-11-29 2019-11-29 [facility] [id number] Univers 15:00:00 15:00:00 HUMAIR ity of [facility] 2019-11-29 2019-11-29 Office DominiqueBerenice Krystal 1.2.840.114 [id number] Univers 10:08:05 10:38:05 Visit Ali Pediatric 350.1.13.10 ity of [place] and [place] [id number] [facility] Primary 314 [facility] 2019-11-21 2019-11-21 Urgent Palomino, Maria Krystal 1.2.840.1 14 [id number] Univers 17:52:39 19:38:36 Care Unknown, Attending Pediatric 350.1.13. 10 ity of [place] and [place] [id number] [facility] 370 [facility] 2019-11-21 2019-11-21 Outpatient R SHAKIR, [facility] [id number] Univers 18:00:00 18:00:00 ATTENDING ity [facility] 2019-11-06 2019-11-06 [facility]phone [facility] 1.2.635.321 [id number] Univers 00:00:00 00:00:00 [facility] 350.1.13.10 it y of [place] 4.2.7.2.686 Luis as Professthi [phone] Ok haseeb rendon [address] 2019-10-16 2019-10-16 Orders Doctor ASTER 1.2.840.114 [id number] Univers 00:00:00 00:00:00 Only Unassigned, DREW 350.1.13.10 ity of [place] [facility] 4.2.7.2.686 Luis as [id number] [address] 2019-10-03 2019-10-03 Outpatient R VANESSA [facility] [id number] Univers 13:40:00 13:40:00 ALIDA ity [facility] 2019-10-02 2019-10-02 Outpatient R [facility] [id number] Univers 14:20:00 14:20:00 ity of [facility] 2019-09-27 2019-09-27 Outpatient R SUZE, [facility] [id number] Univers 16:10:00 16:10:00 ASTER ity [facility] 2019-09-26 2019-09-26 Abstract [facility] 1.2.840.114 [id number] Univers 00:00:00 00:00:00 Nicole SPECIALTY 350.1.13.10 ity of [place] C[place] [phone] Ok dical VICTORY [address] [place] 2019-09-16 2019-09-16 Telephone ASTER Damico 1.2.407.956 [id number] Univers 00:00:00 00:00:00 Dedrick RUSSELL 350.1.13.10 i ty of [facility] 4.2.7.2.686 Luis as [phone] [address] 2019-09-14 2019-09-14 [facility] [id number] Univers 13:00:00 13:00:00 JESIKA ity [facility] 2019-09-14 2019-09-14 Urgent Pob1, Acute Care Clinic [facility] 1. 2.840.114 [id number] Univers 12:29:37 12:49:37 Care Jesika Edmonds [facility] 350.1.13.10 ity of [place] 4.2.7.2.686 Luis as Professio [phone] Ok dical nal [address] 2019-08-29 2019-08-29 Office PattenBradly crawley 1.2.840.114 [id number] Univers 13:15:20 16:27:02 Visit Y Pediatric 350.1.13.10 ity of [place] and [place] [id number] [facility] Primary [address] [facility] 2019-08-29 2019-08-29 Outpatient BRADLY HOGAN [facility] [id number] Univers 13:00:00 13:00:00 ity [facility] 2019-08-23 2019-08-23 Outpatient R SUZE, [facility] [id number] Univers 11:20:00 11:20:00 ASTER ity of [facility] 2019-08-08 2019-08-08 Emergency Severo Ch [facility] 1.2.840.114 [id number] Univers 10:54:12 14:43:00 Rhonda Pastor 350.1.13.10 i ty of [place] [employer] [id number] [place] [address] Branch 2019-08-08 2019-08-08 Emergency X Severo CH [facility] ERT [id number] Univers 10:54:12 14:43:00 ity of [facility] 2019-08-08 2019-08-08 Orders Doctor ASTER 1.2.840.114 [id number] Univers 00:00:00 00:00:00 Only Unassigned, DREW 350.1.13.10 ity of [place] [facility] 4.2.7.2.686 Luis as [phone] [facility] [address] 2019-08-01 2019-08-01 Telephone Krystal Palomino 1.2.840.114 [id number] Univers 00:00:00 00:00:00 Bianka Pediatric 350.1.13.10 ity of [place] and [place] [id number] [facility] Primary [address] Care Clinic 2019-07-28 2019-07-28 Emergency Hemanth, [facility] 1.2.840.114 [id number] Univers 11:54:19 15:06:00 Aleyda Pastor 350.1.13.10 ity of [place]2.[place] [employer] [phone] [place] [address] Branch 2019-07-28 2019-07-28 Urgent Pob1, Acute Care Clinic [facility] 1. 2.840.114 [id number] Univers 10:54:54 11:59:19 Care Jesika Edmonds 350.1.13.10 ity of [place] 4.2.7.2.686 Luis as Professio [phone] Ok dical nal [address] 2019-07-28 2019-07-28 Outpatient R [facility] [id number] Univers 11:20:00 11:20:00 ity of [facility] 2019-07-18 2019-07-18 Refill Krystal Palomino 1.2.840.114 [id number] Univers 00:00:00 00:00:00 Bianka Pediatric 350.1.13.10 ity of [place] [id number] [address] Care Clinic 2019-07-12 2019-07-12 Telemedici [facility] 1.2.840.114 [id number] Univers 13:07:28 13:17:28 ne Visit Aster SPECIALTY 350.1.13.10 ity of C[place] AT [phone] Ok haseeb ROBLES [address] [place] [address] 2019-07-12 2019-07-12 Outpatient R SUZE, [facility] [id number] Univers 09:00:00 09:00:00 ASTER ity [facility] 2019-07-12 2019-07-12 Telephone ASTER Taylor 1.2.133.390 [id number] Univers 00:00:00 00:00:00 Chel DREW 350.1.13.10 it y of HOSPITAL 4.2.7.2.686 [place] as [id number] [address] 2019-07-10 2019-07-10 Outpatient R KIRA [facility] [id number] Univers 14:00:00 14:00:00 , RADHA it y of [facility] 2019-07-10 2019-07-10 Urgent Pob1, Acute Care Clinic [facility] 1. 2.840.114 [id number] Univers 13:07:04 13:27:04 Care Radha Malone [facility] 350.1 .13.10 ity of [place] 4.2.7.2.686 Luis as Professio [phone] Ok haseeb rendon [address] [place] [address] Office [address] 2019-06-23 2019-06-23 Outpatient R STAR, [facility] [id number] Univers 11:30:00 11:30:00 BIANKA workman [facility] 2019-06-23 2019-06-23 TelemedicKrystal Briggs 1.2.840.114 [id number] Univers 07:51:58 08:06:58 ne Visit Bianka Pediatric 350.1.13.10 ity of [place] and [place]2.[place] [phone] [address] 2019-05-27 2019-05-27 Urgent Steve Donis Krystal 1.2.840.11 [id number] Univers 11:39:21 11:54:21 Care Unknown, Attending Pediatric 350.1.13. 10 ity of [place] and [place].2.[place] [phone] [address] 2019-05-27 2019-05-27 Outpatient R SHAKIR, [facility] [id number] Univers 11:30:00 11:30:00 ATTENDING [facility] 2019-05-22 2019-05-22 Outpatient R STAR [facility] [id number] Univers 11:30:00 11:30:00 [facility] 2019-05-22 2019-05-22 Office Krystal Palomino 1.2.840.114 [id number] Univers 10:24:59 10:39:59 Visit Bianka Pediatric 350.1.13.10 ity of [place]2.[place] [id number] [address] 2019-05-22 2019-05-22 [facility] 1.2.840.114 [id number] Univers 00:00:00 00:00:00 Nathaly Women's 350.1.13.10 it y of [place]2.[place] [phone] [facility] in [facility] Branch [facility] 2019-05-15 2019-05-15 Telephone Krystal Palomino 1.2.840.114 [id number] Univers 00:00:00 00:00:00 Bianka Pediatric 350.1.13.10 ity of [place]2.[place] [phone] [address] 2019-05-09 2019-05-09 [facility] 1026 [id number] Univers 11:45:00 11:45:00 BIANKA workman [facility] 2019-05-09 2019-05-09 Office Krystal Palomino 1.2.840.114 [id number] Univers 10:53:16 11:08:16 Visit Bianka Pediatric 350.1.13.10 ity of [place]2.[place] [id number] [address] 2019-05-02 2019-05-02 Office Krystal Palomino 1.2.840.114 [id number] Univers 10:45:35 14:16:07 Visit Bianka Pediatric 350.1.13.10 ity of [place] and [place]2.[place] [id number] [address] 2019-04-28 2019-04-28 Outpatient R STAR [facility] [id number] Univers 00:00:00 00:00:00 BIANKA workman [facility] 2019-04-25 2019-04-25 Office Krystal Palomino 1.2.840.114 [id number] Univers 09:44:14 10:52:19 Visit Bianka Pediatric 350.1.13.10 ity of [place] and [place].2.[place] [id number] [address] 2019-04-25 2019-04-25 Orders ASTER Palomino 1.2.840.114 [id number] Univers 00:00:00 00:00:00 Only Bianka RUSSELL 350.1.13.10 it y of HOSPITAL 4.2.7.2.686 [place] as [phone] [place] [address] [address] 2019-04-17 2019-04-17 Telephone Corrie INSELIN 1.2.840.114 [id number] Univers 00:00:00 00:00:00 Nathaly Women's 350.1.13.10 it [facility] [place].2.[place] [id number] [facility] in [facility] Branch [facility] 2019-03-30 2019-03-30 Office Corrie INSELIN 1.2.840.114 [id number] Univers 13:04:52 15:56:23 Visit Nathaly Women's 350.1.13.10 it y of [facility].2.[place] [phone] Medi adonay in [address] [facility] 2019-03-28 2019-03-28 [facility] [id number] Univers 07:49:47 23:59:00 NATHALY ity of [facility] 2019-03-28 2019-03-28 [facility] 1.2.840.114 [id number] Univers 07:49:00 23:59:00 Encounter Nathaly SPECIALTY 350.1.13.10 ity of [place]2.[place].2.[place] AT [id number] Ok haseeb SALINAS 806 [facility] 2019-03-28 2019-03-28 Orders Doctor ASTER 1.2.840.114 [id number] Univers 00:00:00 00:00:00 Only Unassigned, DREW 350.1.13.10 ity of [place] [facility] 4.2.7.2.686 Luis as [phone] Medi adonay 009 [address] 2018-11-22 2018-11-22 Office Dominique [facility] 1.2.840.114 [id number] Univers 13:59:01 15:15:07 Visit [employer] HEALTH 350.1.13.10 it y of [place].2.7.2.[place] [id number] Medi adonay [address] 2018-03-22 2018-11-21 Office Dominique [facility] 1.2.840.114 [id number] Univers 13:17:21 16:43:35 Visit [employer] HEALTH 350.1.13.10 it y of [place].2.7.2.[place] [id number] Medi adonay [address] 2018-10-14 2018-10-27 Office [facility] 1.2.840.114 [id number] Univers 14:42:49 12:07:18 Visit Nathaly Women's 350.1.13.10 it y of [facility] [place].2.[place] [id number] Medi adonay in [address] [facility] 2018-10-14 2018-10-14 Orders Doctor ASTER 1.2.840.114 [id number] Univers 00:00:00 00:00:00 Only Unassigned, DREW 350.1.13.10 ity of [place] [facility] 4.2.7.2.686 Luis as [id number] [facility] 009 [address] 2018-10-07 2018-10-07 Office Krystal Palomino 1.2.840.114 [id number] Univers 12:38:52 12:53:52 Visit Bianka Pediatric 350.1.13.10 ity of [place] and [place].2.[place] [id number] [facility] 314 [facility] 2016-02-29 2016-02-29 Urgent Care, Cassie Urgent KRYSTAL 1.2.840.1 14 [id number] Univers 11:15:00 11:30:00 Care Unknown, Attending PEDIATRIC 350.1.13. 10 ity of [place]2.7.2.[place] [id number] [address] 2016-02-29 2016-02-29 Outpatient R UNKNOWN, [facility] [id number] Univers 11:15:00 11:15:00 ATTENDING ity of [facility] Results Test Description Test Time Test Comments Results Result [facility] e Comments CULTURE, URINE 2022-05-08 SPECIMEN NUMBER: 10:02:54 [id number] CULTURE, URINE SPECIMEN NUMBER: [id number] SPECIMEN COMMENT: URINE SOURCE: URINE REPORT STATUS: FINAL ISOLATE NUMBER 1: ORGANISM: 05/07/2022 10-50,000 CFU/ML GRAM NEGATIVE BACILLI IDENTIFICATION: 05/08/2022 PROTEUS MIRABILIS P. MIRABILIS AMOXI CILLIN/CA SENSITIVE <=8/4AMPICILLIN SENSITIVE <=8CEFAZOLIN SENSITIVE <=2CEFTRIAXONE SENSITIVE <=1CIPROFLOXACIN SENSITIVE <=1LEVOFLOXACIN SENSITIVE <=2NITROFURANTOIN RESISTANT >64PIP/TAZOBAC SENSITIVE <=16TETRACYCLINE RESISTANT >8TOBRAMYCIN SENSITIVE <=4TRIMETH/SULFA SENSITIVE <=2/38 NOTE: NUMBERS DISPLAYED REPRESENT MINIMUM INHIBITORY CONCENTRATION (ROJELIO) WHICH IS EXPRESSED IN MCG/ML. [facility] has important pathology staff changes effective 05/13/2022. New pathology staff will provide uninterrupted, excellent patient care and clinical consultation. See URL: [email or web address]. UNLESS OTHERWISE INDICATED, ALL TESTING PERFORMED AT [facility] [address] [place] [address] RADIATION ONCOLOGIST: TL ACKERMAN M.D. [place] NUMBER [id number] [place] [id number] SCR MAMM BILATERAL 2022-04-22 YISSEL CAD DIGITAL 13:52:02 Nam e: , Bianka Varela : 1970 Sex: F - SCR MAMM BILATERAL YISSEL CAD DIGITALBILATERAL DIGITAL SCREENING MAMMOGRAM 3D/2D WITH CAD: 04/15/2022LINICAL: Personal history of breast cancer. Asymptomatic. Digital breast tomosynthesis was performed in addition to routine CC and MLO views. Current mammographic images were evaluated by [employer] CAD (computer-aided detection) software. Comparison is made to exams dated 03/05/2021 mammogram, 11/17/2019 mammogram, and 08/02/2018 mammogram - [facility]-. There are scattered fibroglandular tissues in both breasts. There are benign post operative findings and biopsy clips in the left breast. No suspicious mass, architectural distortion, malignant type calcification, or lymph node abnormality detected. Breast architecture is stable compared to prior exams.IMPRESSION: BENIGNThere is no mammographic evidence of malignancy. Resume annual screening mammography in one year. (04/16/2023) Noble bermudez/penrad:04/22/2022 13:52:02 Professor Of Poultry Science: Elham FLORES, [facility]-FWletter sent: BIRADS 1-2 Normal Mammogram BI-RADS: 2 Benign PAP TEST, THINPREP, IMAGED 2022-04-06 15:13:07 Test Item Value Reference Range Interpretation Comme nts SOURCE: (test code = Cervical/Endocervical 8001) SLIDES: (test code = 1 8011) LMP: (test code = NOT GIVEN 8021) SPECIMEN ADEQUACY: (NOTE) Mukesh white for (test code = 13546) evaluati on. Endocervical cells/transform ation zone component prese nt. INTERPRETATION: NILM/NO EPITH. ABNORMALITY;SEE (test code = 37828) BELOW -------- NEGATIVE FOR INTRAEPITHE LIAL LESION OR MALIGNANCY ( NILM) -- OTHER COMMENTS: (NOTE) Atrophic urban nges present. (test code = 8081) [employer] BAND WRAPPER: Omaira Yoon [facility](ASCP) [facility] (test code = 8101) LOCATION: (test code (NOTE) Specime ns processed and = 55766) interpreted at [facility], [address] [place] [address], Phone: , CLIA: [id number] CPT: (test code = (NOTE) 02600 UNLE SS OTHERWISE 8140) INDICATED, COMP UTER AIDED AND CYTOTECHNOL OGIST SCREENING PERFO RMED. The Pap test is a scree sophy test with an inheren t, but low probability of error. Your patient should be reminded to consult you immediately if she experien vinod any suspicious sign s or symptoms, regar dless of her Pap test result . An alternate repor t format containing imag es or consolidated pr ior Pap history is cinthya ng as applicable. HPV HIGH RISK WITH GENOTYPE, [id number] 15:04:46 Test Item Value Reference Range Interpretation Comments HPV HIGH RISK INTERP NEGATIVE NEGATIVE (test code = 16149) HPV 16 (test code = NEGATIVE 41932) HPV 18 (test code = NEGATIVE 88020) HPV, HR, OTHER NEGATIVE Testing meth odology is GENOTYPES (test code real-ti me PCR utilizing = 55058) hydrolysis prob es with the [employer]ash 4800 system. The sandee t individually de tects genotypes 16 an d 18, as well as the oth er 12 high risk types (31,33,35,39,45 ,51,52,56 ,58,59,66,68). The expected result is negative. A neg ative result does not rule out the presence of HPV not included in the genotype set, a low leve l of infection or sp ecimen sampling error. UNLESS OTHERWISE INDIC ATED, ALL TESTING PERFORM ED [facility], [place] [address] LABORATORY DIRE CTOR: TL COTTON M.D. CLIA NUMBER [id number] CAP ACCREDITATI ON NO. TSH, THIRD [id number] 04:18:56 Test Item Value Reference Range Interpretation Comments TSH, THIRD 1.050 UIU/ML 0.400-4.100 UNLESS OTHERWI SE GENERATION (test INDICATED, ALL TESTING code = 2821) PERFORMED [facility], [address] DIRECTOR: TL ACKERMAN M.D. CLIA NUMBER [id number] CAP ACCREDITATION N O. CBC W/AUTO DIFF WITH [id number] 03:52:20 Test Item Value Reference Range Interpretation Comments WBC (test code = 9.1 K/UL 3.5-11.0 1001) RBC (test code = 4.22 M/UL 3.80-5.40 1002) HEMOGLOBIN (test code 12.1 G/DL 11.5-15.5 = 1003) HEMATOCRIT (test code 36.5 % 34.0-45.0 = 1004) MCV (test code = 86.5 fL 80.0-99.0 1005) MCH (test code = 28.7 PG 25.0-33.0 1006) MCHC (test code = 33.2 G/DL 31.0-36.0 1007) RDW (test code = 13.0 % 11.5-15.0 1038) NEUTROPHILS (test 53.0 % code = 1008) LYMPHOCYTES (test 38.0 % code = 1010) MONOCYTES (test code 7.7 % = 1011) EOSINOPHILS (test 0.7 % code = 1012) BASOPHILS (test code 0.4 % = 1013) IMMATURE GRANULOCYTES 0.2 % (test code = 1036) NUCLEATED RBCS (test 0.0 /100 WBC'S See_Comment [Aut omated code = 1065) message] The sy stem which generated this result transmitted reference range : 0.0. The refere nce range was not u sed to interpret th is result as normal/abnormal . PLATELET COUNT (test 391 K/UL 130-400 code = 1015) ABSOLUTE NEUTROPHILS 4.80 K/UL 1.50-7.50 (test code = 1066) ABSOLUTE LYMPHOCYTES 3.45 K/UL 1.00-4.00 (test code = 1067) ABSOLUTE MONOCYTES 0.70 K/UL 0.20-1.00 (test code = 1068) ABSOLUTE EOSINOPHILS 0.06 K/UL 0.00-0.50 (test code = 1040) ABSOLUTE BASOPHILS 0.04 K/UL 0.00-0.20 (test code = 1069) ABS IMMATURE 0.02 K/UL 0.00-0.10 GRANULOCYTES (test code = 1020) ABS NUCLEATED RBCS 0.00 K/UL 0.00-0.11 (test code = 31003) LIPID [id number] 05:11:29 Test Item Value Reference Range Interpretation Comments CHOLESTEROL (test 179 MG/DL <200 code = 2210) TRIGLYCERIDES (test 83 MG/DL <150 code = 2232) HDL CHOLESTEROL (test 47 MG/DL >39 code = 2220) CALC LDL CHOL (test 114 MG/DL <100 H NOTE: C ALCULATED LDL code = 2237) IS BASED ON TERRY-AMAYA METHOD WHICHINCLUDES ADJUSTABLE TRIGLYCERIDE:VL DL CHOLESTEROL RAT IO.THIS FACTOR VARIES B Y MEASURED TRIGLY CERIDE AND NON-HDLCHOL ESTEROL CONCENTRATIONS WITH INCREASED CALCU LATED LDL SEENIN HIGH ER TRIGLYCERIDE OR LOWER NON-HDL SPECIME NS. FOR MOREINFORMATION , SEE CLIENT ANNOUNCE MENT AT [email or web address] RISK RATIO LDL/HDL 2.43 RATIO <3.22 (test code = 2238) COMPREHENSIVE METABOLIC [id number] 05:11:29 Test Item Value Reference Range Interpretation Comments GLUCOSE (test code = 95 MG/DL 70-99 2216) BUN (test code = 29 MG/DL 6-20 H 2207) CREATININE (test 0.98 MG/DL 0.60-1.30 code = 2214) eGFR (2020 CKD-EPI) 69 ML/MIN/1.73 >60 (test code = 25351) CALC BUN/CREAT (test 30 RATIO 6-28 H code = 2235) SODIUM (test code = 144 MEQ/L 925-443 7606) POTASSIUM (test code 4.6 MEQ/L 3.5-5.4 = 2227) CHLORIDE (test code 105 MEQ/L 95-107 = 2215) CARBON DIOXIDE (test 26 MEQ/L 19-31 code = 2206) CALCIUM (test code = 10.1 MG/DL 8.5-10.5 2208) PROTEIN, TOTAL (test 7.3 G/DL 6.1-8.3 code = 2229) ALBUMIN (test code = 4.6 G/DL 3.5-5.2 2200) CALC GLOBULIN (test 2.7 G/DL 1.9-3.7 code = 2240) CALC A/G RATIO (test 1.7 RATIO 1.0-2.6 code = 2234) BILIRUBIN, TOTAL <0.2 MG/DL See_Comment [Automated message] (test code = 2207) The syste m which generated this result transmit lindsay reference range : <=1.2. The refe rence range was not u sed to interpret th is result as normal/abnormal . ALKALINE PHOSPHATASE 141 U/L 40-132 H (test code = 2204) AST (test code = 23 U/L 9-40 2217) ALT (test code = 31 U/L 5-40 2218) HEMOGLOBIN [id number] 03:59:22 Test Item Value Reference Range Interpretation Comments HEMOGLOBIN A1c (test 6.0 % 4.2-5.6 H UNLESS OTHERWISE code = 22567) INDICATED, ALL TESTING PERFORMED [facility] [employer] [address] [place] [address] [facility] DIRECTOR: TL ACKERMAN M.D. CLIA NUMBER [id number] CAP ACCREDITATION N O. [id number] COMPREHENSIVE METABOLIC PANEL [ADDED]2022-03-11 00:00:00 Test Item Value Reference Range Interpretation Comments GLUCOSE (test code = 2217) 95 MG/DL BUN (test code = 2208) 29 MG/DL CREATININE (test code = 2214) 0.98 MG/DL eGFR (2020 CKD-EPI) (test code 69 ML/MIN/1.73 = 18140) CALC BUN/CREAT (test code = 30 RATIO 2235) SODIUM (test code = 2231) 144 MEQ/L POTASSIUM (test code = 2228) 4.6 MEQ/L CHLORIDE (test code = 2215) 105 MEQ/L CARBON DIOXIDE (test code = 26 MEQ/L 2206) CALCIUM (test code = 2209) 10.1 MG/DL PROTEIN, TOTAL (test code = 7.3 G/DL 2229) ALBUMIN (test code = 2201) 4.6 G/DL CALC GLOBULIN (test code = 2.7 G/DL 2240) CALC A/G RATIO (test code = 1.7 RATIO 2234) BILIRUBIN, TOTAL (test code = <0.2 MG/DL 2207) ALKALINE PHOSPHATASE (test 141 U/L code = 2204) AST (test code = 2218) 23 U/L ALT (test code = 2219) 31 U/L COMPREHENSIVE METABOLIC PANEL [ADDED]2022-03-11 00:00:00 Test Item Value Reference Range Interpretation Comments GLUCOSE (test code = 2217) 95 MG/DL BUN (test code = 2208) 29 MG/DL CREATININE (test code = 2214) 0.98 MG/DL eGFR (2020 CKD-EPI) (test code 69 ML/MIN/1.73 = 30176) CALC BUN/CREAT (test code = 30 RATIO 2235) SODIUM (test code = 2231) 144 MEQ/L POTASSIUM (test code = 2228) 4.6 MEQ/L CHLORIDE (test code = 2215) 105 MEQ/L CARBON DIOXIDE (test code = 26 MEQ/L 2205) CALCIUM (test code = 2209) 10.1 MG/DL PROTEIN, TOTAL (test code = 7.3 G/DL 2228) ALBUMIN (test code = 2201) 4.6 G/DL CALC GLOBULIN (test code = 2.7 G/DL 2240) CALC A/G RATIO (test code = 1.7 RATIO 2234) BILIRUBIN, TOTAL (test code = <0.2 MG/DL 2206) ALKALINE PHOSPHATASE (test 141 U/L code = 2204) AST (test code = 2218) 23 U/L ALT (test code = 2219) 31 U/L LIPID PANEL [ADDED]2022-03-11 00:00:00 Test Item Value Reference Range Interpretation Comments CHOLESTEROL (test code = 2210) 179 MG/DL TRIGLYCERIDES (test code = 2232) 83 MG/DL HDL CHOLESTEROL (test code = 2220) 47 MG/DL CALC LDL CHOL (test code = 2237) 114 MG/DL RISK RATIO LDL/HDL (test code = 2.43 RATIO 2238) LIPID PANEL [ADDED]2022-03-11 00:00:00 Test Item Value Reference Range Interpretation Comments CHOLESTEROL (test code = 2210) 179 MG/DL TRIGLYCERIDES (test code = 2232) 83 MG/DL HDL CHOLESTEROL (test code = 2220) 47 MG/DL CALC LDL CHOL (test code = 2237) 114 MG/DL RISK RATIO LDL/HDL (test code = 2.43 RATIO 2238) HEMOGLOBIN A1c [ADDED]2022-03-11 00:00:00 Test Item Value Reference Range Interpretation Comments HEMOGLOBIN A1c (test code = 46891) 6.0 % HEMOGLOBIN A1c [ADDED]2022-03-11 00:00:00 Test Item Value Reference Range Interpretation Comments HEMOGLOBIN A1c (test code = 43145) 6.0 % HEMOGLOBIN A1c [ADDED]2022-03-11 00:00:00 Test Item Value Reference Range Interpretation Comments HEMOGLOBIN A1c (test code = 28027) 6.0 % COMPREHENSIVE METABOLIC PANEL [ADDED]2022-03-11 00:00:00 Test Item Value Reference Range Interpretation Comments GLUCOSE (test code = 2217) 95 MG/DL BUN (test code = 2208) 29 MG/DL CREATININE (test code = 2214) 0.98 MG/DL eGFR (2020 CKD-EPI) (test code 69 ML/MIN/1.73 = 83202) CALC BUN/CREAT (test code = 30 RATIO 2235) SODIUM (test code = 2231) 144 MEQ/L POTASSIUM (test code = 2228) 4.6 MEQ/L CHLORIDE (test code = 2215) 105 MEQ/L CARBON DIOXIDE (test code = 26 MEQ/L 220) CALCIUM (test code = 2209) 10.1 MG/DL PROTEIN, TOTAL (test code = 7.3 G/DL 2228) ALBUMIN (test code = 2201) 4.6 G/DL CALC GLOBULIN (test code = 2.7 G/DL 224) CALC A/G RATIO (test code = 1.7 RATIO 223) BILIRUBIN, TOTAL (test code = <0.2 MG/DL 2206) ALKALINE PHOSPHATASE (test 141 U/L code = 2204) AST (test code = 2218) 23 U/L ALT (test code = 2219) 31 U/L COMPREHENSIVE METABOLIC PANEL [ADDED]2022-03-11 00:00:00 Test Item Value Reference Range Interpretation Comments GLUCOSE (test code = 2217) 95 MG/DL BUN (test code = 2208) 29 MG/DL CREATININE (test code = 2214) 0.98 MG/DL eGFR (2020 CKD-EPI) (test code 69 ML/MIN/1.73 = 74184) CALC BUN/CREAT (test code = 30 RATIO 2235) SODIUM (test code = 2231) 144 MEQ/L POTASSIUM (test code = 2228) 4.6 MEQ/L CHLORIDE (test code = 2215) 105 MEQ/L CARBON DIOXIDE (test code = 26 MEQ/L 2205) CALCIUM (test code = 2209) 10.1 MG/DL PROTEIN, TOTAL (test code = 7.3 G/DL 2228) ALBUMIN (test code = 2201) 4.6 G/DL CALC GLOBULIN (test code = 2.7 G/DL 2240) CALC A/G RATIO (test code = 1.7 RATIO 2234) BILIRUBIN, TOTAL (test code = <0.2 MG/DL 2206) ALKALINE PHOSPHATASE (test 141 U/L code = 2204) AST (test code = 2218) 23 U/L ALT (test code = 2219) 31 U/L LIPID PANEL [ADDED]2022-03-11 00:00:00 Test Item Value Reference Range Interpretation Comments CHOLESTEROL (test code = 2210) 179 MG/DL TRIGLYCERIDES (test code = 2232) 83 MG/DL HDL CHOLESTEROL (test code = 2220) 47 MG/DL CALC LDL CHOL (test code = 2237) 114 MG/DL RISK RATIO LDL/HDL (test code = 2.43 RATIO 2238) LIPID PANEL [ADDED]2022-03-11 00:00:00 Test Item Value Reference Range Interpretation Comments CHOLESTEROL (test code = 2210) 179 MG/DL TRIGLYCERIDES (test code = 2232) 83 MG/DL HDL CHOLESTEROL (test code = 2220) 47 MG/DL CALC LDL CHOL (test code = 2237) 114 MG/DL RISK RATIO LDL/HDL (test code = 2.43 RATIO 2238) HEMOGLOBIN A1c [ADDED]2022-03-11 00:00:00 Test Item Value Reference Range Interpretation Comments HEMOGLOBIN A1c (test code = 79095) 6.0 % HEMOGLOBIN A1c [ADDED]2022-03-11 00:00:00 Test Item Value Reference Range Interpretation Comments HEMOGLOBIN A1c (test code = 89966) 6.0 % HEMOGLOBIN A1c [ADDED]2022-03-11 00:00:00 Test Item Value Reference Range Interpretation Comments HEMOGLOBIN A1c (test code = 35433) 6.0 % GLUCOSE BEDSIDE [id number] 08:19:00 Test Item Value Reference Range Interpretation Comments GLUCOSE BEDSIDE TESTING (test code 232 mg/dL 70-110 H = GLUBED) LACTIC [id number] 07:02:00 Test Item Value Reference Range Interpretation Comments LACTIC ACID (test code = LACT) 2.7 mmol/L 0.4-2.0 H BASIC METABOLIC [id number] 07:00:00 Test Item Value Reference Range Interpretation Comments SODIUM (test code = NA) 142 mmol/L 134-147 N POTASSIUM (test code = K) 4.0 mmol/L 3.4-5.0 N CHLORIDE (test code = CL) 114 mmol/L 100-108 H CARBON DIOXIDE (test code = CO2) 22 mmol/L 21-32 N ANION GAP (test code = GAP) 6.0 GAP calc 4.0-15.0 N GLUCOSE (test code = GLU) 254 MG/DL 70-110 H BLOOD UREA NITROGEN (test code = 19 MG/DL 7-18 H BUN) GLOMERULAR FILTRATION RATE (test 55 estGFR >60 L code = GFR) CREATININE (test code = CREAT) 1.1 MG/DL 0.6-1.0 H CALCIUM (test code = CA) 8.3 MG/DL 8.5-10.1 L CBC W/AUTO [id number] 06:50:00 Test Item Value Reference Range Interpretation Comments WHITE BLOOD CELL (test code = 10.4 K/mm3 3.5-11.0 N WBC) RED BLOOD CELL (test code = 3.63 M/mm3 4.70-6.10 L RBC) HEMOGLOBIN (test code = HGB) 10.3 G/DL 10.4-14.9 L HEMATOCRIT (test code = HCT) 32.4 % 31.5-44.1 N MEAN CELL VOLUME (test code = 89.3 Fl 84.5-98.6 N MCV) MEAN CELL HGB (test code = MCH) 28.4 pg 27.0-34.2 N MEAN CELL HGB CONCETRATION 31.8 G/DL 31.5-34.0 N (test code = MCHC) RED CELL DISTRIBUTION WIDTH 12.8 SD 11.5-14.5 N (test code = RDW) PLATELET COUNT (test code = 315 K/mm3 150-450 N PLT) MEAN PLATELET VOLUME (test code 10.30 fL 7.0-10.5 N = MPV) NEUTROPHIL % (test code = NT%) 87.7 % 40-76 H IMMATURE GRANULOCYTE % (test 0.3 % 0.0-5.0 N code = IG%) LYMPHOCYTE % (test code = LY%) 11.7 % 20.5-51.1 L MONOCYTE % (test code = MO%) 0.2 % 1.7-9.3 L EOSINOPHIL % (test code = EO%) 0.0 % 0.0-6.0 N BASOPHIL % (test code = BA%) 0.1 % 0.0-2.0 N NUCLEATED RBC % (test code = 0.0 /100WBC% 0.0-1.0 N NRBC%) NEUTROPHIL # (test code = NT#) 9.2 K/mm3 1.8-7.6 H IMMATURE GRANULOCYTE # (test 0.03 x10 3/uL 0.00-0.03 N code = IG#) LYMPHOCYTE # (test code = LY#) 1.2 K/mm3 0.6-3.2 N MONOCYTE # (test code = MO#) 0.0 K/mm3 0.3-1.1 L EOSINOPHIL # (test code = EO#) 0.0 K/mm3 0.0-0.4 N BASOPHIL # (test code = BA#) 0.0 K/mm3 0.0-0.1 N NUCLEATED RBC # (test code = 0.0 K/mm3 0.0-0.1 N NRBC#) MANUAL DIFF REQUIRED (test code NO DIFF/SCN CRITERIA = MDIFF) LACTIC [id number] 02:17:00 Test Item Value Reference Range Interpretation Comments LACTIC ACID (test code = LACT) 2.5 mmol/L 0.4-2.0 H LACTIC [id number] 23:13:00 Test Item Value Reference Range Interpretation Comments LACTIC ACID (test code = LACT) 3.3 mmol/L 0.4-2.0 H UA RFLX MICR CULT IF [id number] 22:25:00 Test Item Value Reference Range Interpretation Comments UA COLOR (test code = YELLOW discript YEL/STRAW COLU) UA APPEARANCE (test code CLEAR discript CLEAR = APPU) UA GLUCOSE DIPSTICK (test NEGATIVE mg/dL NEG code = DGLUU) UA BILIRUBIN DIPSTICK NEGATIVE mg/dL NEG (test code = BILU) UA KETONE DIPSTICK (test NEGATIVE mg/dL NEG code = KETU) UA SPECIFIC GRAVITY (test 1.010 SG 1.005-1.030 code = SGU) UA BLOOD DIPSTICK (test NEGATIVE mg/DL NEG code = VIMAL) UA PH DIPSTICK (test code 6.0 pH UNITS 5.0-7.0 = CHANI) UA PROTEIN DIPSTICK (test NEGATIVE mg/dL NEG code = PROU) UA UROBILINIOGEN DIPSTICK 0.2 mg/dL <2.0 (test code = URO) UA NITRITE DIPSTICK (test NEGATIVE SCREEN NEG code = MEDINA) UA LEUKOCYTE ESTERASE TRACE Leuk/mcL NEGATIVE A DIPSTICK (test code = LEUU) UA CULTURE NEEDED? (test NO, WBC<10 Criteria Culture CHK code = UACULT) UA WBC (test code = WBCU) 0-1 #WBC/HPF 0-3 UA RBC (test code = RBCU) NONE SEEN #RBC/HPF 0-3 UA BACTERIA (test code = NONE SEEN /HPF NONE-TRACE BACU) UA SQUAMOUS CELLS (test NONE SEEN /HPF NONE code = SQU) Indication for culture: RiskForSepsis-no oth srcCOMPREHENSIVE METABOLIC PANEL 2021-11-16 20:47:00 Test Item Value Reference Range Interpretation Comments SODIUM (test code = NA) 141 mmol/L 134-147 N POTASSIUM (test code = K) 3.4 mmol/L 3.4-5.0 N CHLORIDE (test code = CL) 110 mmol/L 100-108 H CARBON DIOXIDE (test code = CO2) 23 mmol/L 21-32 N ANION GAP (test code = GAP) 8.0 GAP calc 4.0-15.0 N GLUCOSE (test code = GLU) 131 MG/DL 70-110 H BLOOD UREA NITROGEN (test code = 21 MG/DL 7-18 H BUN) GLOMERULAR FILTRATION RATE (test 42 estGFR >60 L code = GFR) CREATININE (test code = CREAT) 1.4 MG/DL 0.6-1.0 H TOTAL PROTEIN (test code = PROT) 6.4 G/DL 6.4-8.2 N ALBUMIN (test code = ALB) 3.0 G/DL 3.4-5.0 L GLOBULIN (test code = GLOB) 3.4 GM/dL ALBUMIN/GLOBULIN RATIO (test 0.9 RATIO 1.2-2.2 L code = A/G) CALCIUM (test code = CA) 7.7 MG/DL 8.5-10.1 L BILIRUBIN TOTAL (test code = 0.40 MG/DL 0.2-1.2 N BILT) SGOT/AST (test code = AST) 28 Unit/L 15-37 N SGPT/ALT (test code = ALT) 38 Unit/L 12-78 N ALKALINE PHOSPHATASE TOTAL (test 112 Unit/L 45-117 N code = ALKP) Completed by Nursing: NOTROP-I HIGH [id number] 20:47:00 Test Item Value Reference Range Interpretation Comments TROP-I HIGH 5.8 ng/L 0-34 N CAUTION: Units of the SENSITIVITY (test current te st methodology code = TROPIHS) (ng/L) diffe rfrom the prior test meth odology (ng/mL) by a fa ctor of 1000. 99t h Percentile Uppe r Reference Limit (URL):Fem ales: 34 ng/LMales: 54 n g/L In order to distin guish acute elevations of h igh sensitivitytrop onin from other clinical conditions, the FourthUnive rsal Definition of M yocardial Infarction stressesclinica l assessment and the demonstration o f a rise and/orfall in s erial troponin result s above the URL. Results fr om different metho dologies should not be c omparedto one another as quantitative re sults and URLs may varyby method. Completed by Nursing: NOLACTIC [id number] 20:45:00 Test Item Value Reference Range Interpretation Comments LACTIC ACID (test code = LACT) 2.1 mmol/L 0.4-2.0 H COVID 19 INHOUSE [id number] 20:31:00 Test Item Value Reference Range Interpretation Comments COVID 19 INHOUSE AG NEGATIVE Negative Per milan facturer, (test code = negative result s should [id number]) be treated aspr esumptive and, if inconsi stent with clinical signs andsymptoms or necessary for patient man agement, should betested with an alternative mol ecular assay. Negative resultsdo not preclude SA RS-CoV-2 infection and s hould not be usedas the s ole basis for patient man agement decisions. Nega tive results should be considered in t he context of apatient's r ecent exposures, hist ory, presence of cli nicalsigns and symptoms co nsistent with COVID-19. CBC W/AUTO [id number] 20:25:00 Test Item Value Reference Range Interpretation Comments WHITE BLOOD CELL (test code = 21.4 K/mm3 3.5-11.0 H WBC) RED BLOOD CELL (test code = 4.26 M/mm3 4.70-6.10 L RBC) HEMOGLOBIN (test code = HGB) 12.3 G/DL 10.4-14.9 N HEMATOCRIT (test code = HCT) 37.6 % 31.5-44.1 N MEAN CELL VOLUME (test code = 88.3 Fl 84.5-98.6 N MCV) MEAN CELL HGB (test code = MCH) 28.9 pg 27.0-34.2 N MEAN CELL HGB CONCETRATION 32.7 G/DL 31.5-34.0 N (test code = MCHC) RED CELL DISTRIBUTION WIDTH 12.9 SD 11.5-14.5 N (test code = RDW) PLATELET COUNT (test code = 349 K/mm3 150-450 N PLT) MEAN PLATELET VOLUME (test code 9.80 fL 7.0-10.5 N = MPV) NEUTROPHIL % (test code = NT%) 74.7 % 40-76 N IMMATURE GRANULOCYTE % (test 0.6 % 0.0-5.0 N code = IG%) LYMPHOCYTE % (test code = LY%) 19.7 % 20.5-51.1 L MONOCYTE % (test code = MO%) 4.4 % 1.7-9.3 N EOSINOPHIL % (test code = EO%) 0.4 % 0.0-6.0 N BASOPHIL % (test code = BA%) 0.2 % 0.0-2.0 N NUCLEATED RBC % (test code = 0.0 /100WBC% 0.0-1.0 N NRBC%) NEUTROPHIL # (test code = NT#) 16.0 K/mm3 1.8-7.6 H IMMATURE GRANULOCYTE # (test 0.12 x10 3/uL 0.00-0.03 H code = IG#) LYMPHOCYTE # (test code = LY#) 4.2 K/mm3 0.6-3.2 H MONOCYTE # (test code = MO#) 1.0 K/mm3 0.3-1.1 N EOSINOPHIL # (test code = EO#) 0.1 K/mm3 0.0-0.4 N BASOPHIL # (test code = BA#) 0.0 K/mm3 0.0-0.1 N NUCLEATED RBC # (test code = 0.0 K/mm3 0.0-0.1 N NRBC#) MANUAL DIFF REQUIRED (test code NO DIFF/SCN CRITERIA = MDIFF) - XR CHEST 1 [id number] 20:05:00 [facility] 1970 Sex: F Name: ARNEL BLACKWELL [facility] : 1970 Age/S: 51 / F [place] Unit #: [id number] Loc: [place] [address] Phys: Roberto Box MD Acct: [id number] Dis Date: Status: PRE ER PHONE #: [phone] Exam Date: 11/16/20211944 FAX #: Reason: cough EXAMS: CPT: [id number] XR CHEST 1 V 84003 Fluoro Time: DAP (Gy m2): Air Kerma (mGy): LOCATION: B2 EXAM: - XR CHEST 1 V HISTORY: cough COMPARISON: None FINDINGS: The lungs are clear. No pleural effusion or pneumothorax. The cardiac silhouette is within normal limits. No acute osseous abnormalities. IMPRESSION: No acute cardiopulmonary disease. at 2005 Reported and signed by: Hung Moran M.D. CC: PAGE 1 Signed Report Name: ARNEL BLACKWELL [facility] : 1970 Age/S: 51 / F [place] Unit #: [id number] Loc: [place] [address] Phys: Roberto Box MDAcct: [id number] Dis Date: Status: PRE ER PHONE #: [phone] Exam Date: 11/16/20211944 FAX #:Reason: cough EXAMS: CPT: [id number] XR CHEST 1 V 02139 Fluoro Time: DAP (Gy m2): Air Kerma (mGy): (C ontinued) Technologist: RT Braxton(R)(CT) Trnscb Date/Time: 11/16/2021 (2004) [id number] Orig Print D/T: S: 11/16/2021 (2007) PAGE 2 Signed ReportH. PYLORI (BREATH)2021-11-07 14:12:33 Test Item Value Reference Range Interpretation Comments H. PYLORI (BREATH) (test code = POSITIVE NEGATIVE A 11817) VITAMIN [id number] 06:04:11 Test Item Value Reference Range Interpretation Comments VITAMIN B-12 (test 229 PG/ML 200-950 UNLESS O THERWISE code = 2840) INDICATED, ALL TESTING PERFORMED [facility] [address] [place] [address] DIRECTOR: TL ACKERMAN M.D. CLIA NUMBER [id number] CAP ACCREDITATION N O. [id number] H. PYLORI (BREATH)2021-11-07 00:00:00 Test Item Value Reference Range Interpretation Comments H. PYLORI (BREATH) (test code = POSITIVE 13692) H. PYLORI (BREATH)2021-11-07 00:00:00 Test Item Value Reference Range Interpretation Comments H. PYLORI (BREATH) (test code = POSITIVE 99699) VITAMIN [id number] 00:00:00 Test Item Value Reference Range Interpretation Comments VITAMIN B-12 (test code = 2840) 229 PG/ML VITAMIN [id number] 00:00:00 Test Item Value Reference Range Interpretation Comments VITAMIN B-12 (test code = 2840) 229 PG/ML VITAMIN [id number] 00:00:00 Test Item Value Reference Range Interpretation Comments VITAMIN B-12 (test code = 2840) 229 PG/ML H. PYLORI (BREATH)2021-11-07 00:00:00 Test Item Value Reference Range Interpretation Comments H. PYLORI (BREATH) (test code = POSITIVE 70238) H. PYLORI (BREATH)2021-11-07 00:00:00 Test Item Value Reference Range Interpretation Comments H. PYLORI (BREATH) (test code = POSITIVE 95427) VITAMIN [id number] 00:00:00 Test Item Value Reference Range Interpretation Comments VITAMIN B-12 (test code = 2840) 229 PG/ML VITAMIN [id number] 00:00:00 Test Item Value Reference Range Interpretation Comments VITAMIN B-12 (test code = 2840) 229 PG/ML VITAMIN [id number] 00:00:00 Test Item Value Reference Range Interpretation Comments VITAMIN B-12 (test code = 2840) 229 PG/ML ALBUMIN/CREATININE RATIO, URINE, [id number] 05:08:16 Test Item Value Reference Range Interpretation Comments CREATININE, URINE, 327.6 MG/DL NOT ESTAB RANDOM (test code = 2072) ALBUMIN, URINE, 4.5 MG/DL NOT ESTAB RANDOM (test code = 82130) CALC 14 MG/G <30 Note: ALBUMIN/CREAT, RND Albumin/C reatinine ratio (test code = reference [place] [address]) reflects ADA an d NKF guidelines. UNL ESS OTHERWISE INDIC ATED, ALL TESTING PERFORM ED ATCLINICAL PATH [facility] [address] [place] [id number] LABORATORY DIRE CTOR: TL COTTON M.D. CLIA NUMBER [id number] [facility] [place]. [id number] COMPREHENSIVE METABOLIC [id number] 03:44:59 Test Item Value Reference Range Interpretation Comments GLUCOSE (test code = 90 MG/DL 70-99 2216) BUN (test code = 26 MG/DL 6-20 H 2207) CREATININE (test 1.06 MG/DL 0.60-1.30 code = 2214) eGFR (2020 CKD-EPI) 63 ML/MIN/1.73 >60 (test code = 84322) CALC BUN/CREAT (test 25 RATIO 6-28 code = 2235) SODIUM (test code = 143 MEQ/L 657-915 4106) POTASSIUM (test code 4.6 MEQ/L 3.5-5.4 = 2228) CHLORIDE (test code 103 MEQ/L 95-107 = 2215) CARBON DIOXIDE (test 27 MEQ/L 19-31 code = 2206) CALCIUM (test code = 9.8 MG/DL 8.5-10.5 2208) PROTEIN, TOTAL (test 7.2 G/DL 6.1-8.3 code = 2229) ALBUMIN (test code = 4.4 G/DL 3.5-5.2 2200) CALC GLOBULIN (test 2.8 G/DL 1.9-3.7 code = 2240) CALC A/G RATIO (test 1.6 RATIO 1.0-2.6 code = 2234) BILIRUBIN, TOTAL 0.4 MG/DL See_Comment [Automated message] (test code = 220) The syste m which generated this result transmit lindsay reference range : <=1.2. The refe rence range was not u sed to interpret th is result as normal/abnormal . ALKALINE PHOSPHATASE 115 U/L 40-132 (test code = 2203) AST (test code = 34 U/L 9-40 2217) ALT (test code = 49 U/L 5-40 H 2218) LIPID [id number] 03:44:59 Test Item Value Reference Range Interpretation Comments CHOLESTEROL (test 162 MG/DL <200 code = 2210) TRIGLYCERIDES (test 86 MG/DL <150 code = 2232) HDL CHOLESTEROL (test 42 MG/DL >39 code = 2220) CALC LDL CHOL (test 102 MG/DL <100 H NOTE: C ALCULATED LDL code = 2237) IS BASED ON TERRY-AMAYA METHOD WHICHINCLUDES ADJUSTABLE TRIGLYCERIDE:VL DL CHOLESTEROL RAT IO.THIS FACTOR VARIES B Y MEASURED TRIGLY CERIDE AND NON-HDLCHOL ESTEROL CONCENTRATIONS WITH INCREASED CALCU LATED LDL SEENIN HIGH ER TRIGLYCERIDE OR LOWER NON-HDL SPECIME NS. FOR MOREINFORMATION , SEE CLIENT ANNOUNCE MENT AT [email or web address] [email or web address] LDL/HDL 2.43 RATIO <3.22 (test code = 2238) 9179 COMPREHENSIVE METABOLIC [id number] 00:00:00 Test Item Value Reference Range Interpretation Comments GLUCOSE (test code = 2217) 90 MG/DL BUN (test code = 2208) 26 MG/DL CREATININE (test code = 2214) 1.06 MG/DL eGFR (2020 CKD-EPI) (test code 63 ML/MIN/1.73 = 52141) CALC BUN/CREAT (test code = 25 RATIO 5) SODIUM (test code = 2231) 143 MEQ/L POTASSIUM (test code = 2228) 4.6 MEQ/L CHLORIDE (test code = 2215) 103 MEQ/L CARBON DIOXIDE (test code = 27 MEQ/L 2206) CALCIUM (test code = 2209) 9.8 MG/DL PROTEIN, TOTAL (test code = 7.2 G/DL 2228) ALBUMIN (test code = 2201) 4.4 G/DL CALC GLOBULIN (test code = 2.8 G/DL 2240) CALC A/G RATIO (test code = 1.6 RATIO 2234) BILIRUBIN, TOTAL (test code = 0.4 MG/DL 2206) ALKALINE PHOSPHATASE (test 115 U/L code = 2204) AST (test code = 2218) 34 U/L ALT (test code = 2219) 49 U/L 9179 COMPREHENSIVE METABOLIC [id number] 00:00:00 Test Item Value Reference Range Interpretation Comments GLUCOSE (test code = 2217) 90 MG/DL BUN (test code = 2208) 26 MG/DL CREATININE (test code = 2214) 1.06 MG/DL eGFR (2020 CKD-EPI) (test code 63 ML/MIN/1.73 = 33461) CALC BUN/CREAT (test code = 25 RATIO 2235) SODIUM (test code = 2231) 143 MEQ/L POTASSIUM (test code = 2228) 4.6 MEQ/L CHLORIDE (test code = 2215) 103 MEQ/L CARBON DIOXIDE (test code = 27 MEQ/L 2205) CALCIUM (test code = 2209) 9.8 MG/DL PROTEIN, TOTAL (test code = 7.2 G/DL 2228) ALBUMIN (test code = 2201) 4.4 G/DL CALC GLOBULIN (test code = 2.8 G/DL 2240) CALC A/G RATIO (test code = 1.6 RATIO 2234) BILIRUBIN, TOTAL (test code = 0.4 MG/DL 2206) ALKALINE PHOSPHATASE (test 115 U/L code = 2204) AST (test code = 2218) 34 U/L ALT (test code = 2219) 49 U/L 173 LIPID [id number] 00:00:00 Test Item Value Reference Range Interpretation Comments CHOLESTEROL (test code = 2210) 162 MG/DL TRIGLYCERIDES (test code = 2232) 86 MG/DL HDL CHOLESTEROL (test code = 2220) 42 MG/DL CALC LDL CHOL (test code = 2237) 102 MG/DL RISK RATIO LDL/HDL (test code = 2.43 RATIO 2238) 173 LIPID [id number] 00:00:00 Test Item Value Reference Range Interpretation Comments CHOLESTEROL (test code = 2210) 162 MG/DL TRIGLYCERIDES (test code = 2232) 86 MG/DL HDL CHOLESTEROL (test code = 2220) 42 MG/DL CALC LDL CHOL (test code = 2237) 102 MG/DL RISK RATIO LDL/HDL (test code = 2.43 RATIO 2238) 4895 ALBUMIN/CREATININE RATIO, RANDOM [id number] 00:00:00 Test Item Value Reference Range Interpretation Comments CREATININE, URINE, RANDOM (test 327.6 MG/DL code = 2072) ALBUMIN, URINE, RANDOM (test code 4.5 MG/DL = 49279) CALC ALBUMIN/CREAT, RND (test 14 MG/G code = 01971) 4895 ALBUMIN/CREATININE RATIO, RANDOM [id number] 00:00:00 Test Item Value Reference Range Interpretation Comments CREATININE, URINE, RANDOM (test 327.6 MG/DL code = 2072) ALBUMIN, URINE, RANDOM (test code 4.5 MG/DL = 11390) CALC ALBUMIN/CREAT, RND (test 14 MG/G code = 50226) 9179 COMPREHENSIVE METABOLIC [id number] 00:00:00 Test Item Value Reference Range Interpretation Comments GLUCOSE (test code = 2217) 90 MG/DL BUN (test code = 2208) 26 MG/DL CREATININE (test code = 2214) 1.06 MG/DL eGFR (2020 CKD-EPI) (test code 63 ML/MIN/1.73 = 84753) CALC BUN/CREAT (test code = 25 RATIO 2235) SODIUM (test code = 2231) 143 MEQ/L POTASSIUM (test code = 2228) 4.6 MEQ/L CHLORIDE (test code = 2215) 103 MEQ/L CARBON DIOXIDE (test code = 27 MEQ/L 2205) CALCIUM (test code = 2209) 9.8 MG/DL PROTEIN, TOTAL (test code = 7.2 G/DL 2228) ALBUMIN (test code = 2201) 4.4 G/DL CALC GLOBULIN (test code = 2.8 G/DL 2239) CALC A/G RATIO (test code = 1.6 RATIO 2234) BILIRUBIN, TOTAL (test code = 0.4 MG/DL 2206) ALKALINE PHOSPHATASE (test 115 U/L code = 2204) AST (test code = 2218) 34 U/L ALT (test code = 2219) 49 U/L 9179 COMPREHENSIVE METABOLIC [id number] 00:00:00 Test Item Value Reference Range Interpretation Comments GLUCOSE (test code = 2217) 90 MG/DL BUN (test code = 2208) 26 MG/DL CREATININE (test code = 2214) 1.06 MG/DL eGFR (2020 CKD-EPI) (test code 63 ML/MIN/1.73 = 36342) CALC BUN/CREAT (test code = 25 RATIO 2235) SODIUM (test code = 2231) 143 MEQ/L POTASSIUM (test code = 2228) 4.6 MEQ/L CHLORIDE (test code = 2215) 103 MEQ/L CARBON DIOXIDE (test code = 27 MEQ/L 2205) CALCIUM (test code = 2209) 9.8 MG/DL PROTEIN, TOTAL (test code = 7.2 G/DL 2228) ALBUMIN (test code = 2201) 4.4 G/DL CALC GLOBULIN (test code = 2.8 G/DL 2240) CALC A/G RATIO (test code = 1.6 RATIO 2234) BILIRUBIN, TOTAL (test code = 0.4 MG/DL 2206) ALKALINE PHOSPHATASE (test 115 U/L code = 2204) AST (test code = 2218) 34 U/L ALT (test code = 2219) 49 U/L 173 LIPID [id number] 00:00:00 Test Item Value Reference Range Interpretation Comments CHOLESTEROL (test code = 2210) 162 MG/DL TRIGLYCERIDES (test code = 2232) 86 MG/DL HDL CHOLESTEROL (test code = 2220) 42 MG/DL CALC LDL CHOL (test code = 2237) 102 MG/DL RISK RATIO LDL/HDL (test code = 2.43 RATIO 2238) 173 LIPID [id number] 00:00:00 Test Item Value Reference Range Interpretation Comments CHOLESTEROL (test code = 2210) 162 MG/DL TRIGLYCERIDES (test code = 2232) 86 MG/DL HDL CHOLESTEROL (test code = 2220) 42 MG/DL CALC LDL CHOL (test code = 2237) 102 MG/DL RISK RATIO LDL/HDL (test code = 2.43 RATIO 2238) 4895 ALBUMIN/CREATININE RATIO, RANDOM [id number] 00:00:00 Test Item Value Reference Range Interpretation Comments CREATININE, URINE, RANDOM (test 327.6 MG/DL code = 2072) ALBUMIN, URINE, RANDOM (test code 4.5 MG/DL = 85199) CALC ALBUMIN/CREAT, RND (test 14 MG/G code = 75450) 4895 ALBUMIN/CREATININE RATIO, RANDOM [id number] 00:00:00 Test Item Value Reference Range Interpretation Comments CREATININE, URINE, RANDOM (test 327.6 MG/DL code = 2072) ALBUMIN, URINE, RANDOM (test code 4.5 MG/DL = 65040) CALC ALBUMIN/CREAT, RND (test 14 MG/G code = 22888) CULTURE, [id number] 11:54:50SPECIMEN NUMBER: [id number] CULTURE, URINE SPECIMEN NUMBER: [id number] SOURCE: URINE REPORT STATUS: FINAL FINAL REPORT: 04/18/2021 >100,000 CFU/ML UROGENITAL MARY ALICE PRESENT NO COMMON PATHOGENS CULTURE, [id number] 00:00:00 Test Item Value Reference Range Interpretation Comments CULTURE, URINE (test SPECIMEN NUMBER: code = 31732) [id number] CULTURE, [id number] 00:00:00 Test Item Value Reference Range Interpretation Comments CULTURE, URINE (test SPECIMEN NUMBER: code = 95332) [id number] CULTURE, [id number] 00:00:00 Test Item Value Reference Range Interpretation Comments CULTURE, URINE (test SPECIMEN NUMBER: code = 63110) [id number] CULTURE, [id number] 00:00:00 Test Item Value Reference Range Interpretation Comments CULTURE, URINE (test SPECIMEN NUMBER: code = 07680) [id number] HEMOGLOBIN [id number] 05:52:08 Test Item Value Reference Range Interpretation Comments HEMOGLOBIN A1c (test 6.4 % 4.2-5.6 H UNLESS OTHERWISE code = 74627) INDICATED, ALL TESTING PERFORMED [facility] [address] [place], [place] [address] [place] [address] DIRECTOR: TL ACKERMAN M.D. CLIA NUMBER [id number] CAP ACCREDITATION N O. [id number] HEMOGLOBIN [id number] 00:00:00 Test Item Value Reference Range Interpretation Comments HEMOGLOBIN A1c (test code = 29493) 6.4 % HEMOGLOBIN [id number] 00:00:00 Test Item Value Reference Range Interpretation Comments HEMOGLOBIN A1c (test code = 03823) 6.4 % HEMOGLOBIN [id number] 00:00:00 Test Item Value Reference Range Interpretation Comments HEMOGLOBIN A1c (test code = 29255) 6.4 % HEMOGLOBIN [id number] 00:00:00 Test Item Value Reference Range Interpretation Comments HEMOGLOBIN A1c (test code = 21937) 6.4 % HEMOGLOBIN [id number] 00:00:00 Test Item Value Reference Range Interpretation Comments HEMOGLOBIN A1c (test code = 02195) 6.4 % HEMOGLOBIN [id number] 00:00:00 Test Item Value Reference Range Interpretation Comments HEMOGLOBIN A1c (test code = 82673) 6.4 % DIAG MAMM BILATERAL YISSEL CAD [id number] 13:42:56 Name: Bianka : 1970ex: F - DIAG MAMM BILATERAL YISSEL CAD DIGITALBILATERAL DIGITAL DIAGNOSTIC MAMMOGRAM 3D/2D WITH CAD: 1CLINICAL: Followup to previous exam. Digital breast tomosynthesis was performed in addition to routine CC and MLO views. Current mammographic images were evaluated by [employer] CAD (computer-aided detection) software. Comparison is made to exams dated 11/17/2019 mammogram, 08/02/2018 mammogram, and 07/30/2017 mammogram - [facility] There are scattered fibroglandular tissues in both breasts. There are post operative findings and biopsy clips in the left breast. No suspicious mass, architectural distortion, malignant type calcification, or lymph node abnormality detected. INCOMPLETE: ADDITIONAL IMAGING EVALUATION NEEDEDBilateral ultrasound pending for additional evaluation. - BREAST ULTRASOUND BILATERALULTRASOUND OF BOTH BREASTS AND BOTH AXILLA: 1Comparison is made to exams dated 11/17/2019 mammogram, 08/02/2018 mammogram, and 07/30/2017 mammogram - [facility]. Real- time ultrasound ofboth breasts and both axilla and clinical breast exam were performed. No abnormalities were seen sonographically in either breast or either axilla. Clinical breast exam was unremarkable. IMPRESSION: NEGATIVE There is no sonographic evidence of malignancy. Resume annual screening mammography in one year. Kacie Garcia M.D. dm/:03/05/2021 13:42:56 Entry: - 03/11/2021 08:30:11Imaging Technologist: Elsi FLORES, [facility] sent: BIRADS 1-2 Combo FU Letter Mammogram BI-RADS: 0Incomplete: Additional Imaging Evaluation Needed Ultrasound BI-RADS: 1 NegativeBREAST ULTRASOUND [id number] 13:42:56 Name: Bianka : 1970ex: F - DIAG MAMM BILATERAL YISSEL CAD DIGITALBILATERAL DIGITAL DIAGNOSTIC MAMMOGRAM 3D/2D WITH CAD: 03/05/2021LINICAL: Followup to previous exam. Digital breast tomosynthesis was performed in addition to routine CC and MLO views. Current mammographic images were evaluated by [employer] CAD (computer-aided detection) software. Comparison is made to exams dated 11/17/2019 mammogram, 08/02/2018 mammogram, and 07/30/2017 mammogram - [facility]-. There are scattered fibroglandular tissues in both breasts. There are post operative findings and biopsy clips in the left breast. No suspicious mass, architectural distortion, malignant type calcification, or lymph node abnormality detected. INCOMPLETE: ADDITIONAL IMAGING EVALUATION NEEDEDBilateral ultrasound pending for additional evaluation. - BREAST ULTRASOUND BILATERALULTRASOUND OF BOTH BREASTS AND BOTH AXILLA: 03/05/2021omparison is made to exams dated 11/17/2019 mammogram, 08/02/2018 mammogram, and 07/30/2017 mammogram - [facility]-. Real- time ultrasound ofboth breasts and both axilla and clinical breast exam were performed. No abnormalities were seen sonographically in either breast or either axilla. Clinical breast exam was unremarkable. IMPRESSION: NEGATIVE There is no sonographic evidence of malignancy. Resume annual screening mammography in one year. Kacie Garcia M.D. dm/:03/05/2021 13:42:56 Entry: - 03/11/2021 08:30:11Imaging Technologist: Elsi FLORES, [facility] sent: BIRADS 1-2 Combo FU Letter Mammogram BI-RADS: 0 Incomplete: Additional Imaging Evaluation Needed Ultrasound BI-RADS: 1 NegativeHEMOGLOBIN [id number] 00:00:00 Test Item Value Reference Range Interpretation Comments HEMOGLOBIN A1c (test code = 94190) 7.9 % HEMOGLOBIN [id number] 00:00:00 Test Item Value Reference Range Interpretation Comments HEMOGLOBIN A1c (test code = 88464) 7.9 % HEMOGLOBIN [id number] 00:00:00 Test Item Value Reference Range Interpretation Comments HEMOGLOBIN A1c (test code = 06912) 7.9 % HEMOGLOBIN [id number] 00:00:00 Test Item Value Reference Range Interpretation Comments HEMOGLOBIN A1c (test code = 83255) 7.9 % HEMOGLOBIN [id number] 00:00:00 Test Item Value Reference Range Interpretation Comments HEMOGLOBIN A1c (test code = 88262) 7.9 % HEMOGLOBIN [id number] 00:00:00 Test Item Value Reference Range Interpretation Comments HEMOGLOBIN A1c (test code = 68392) 7.9 % COMPREHENSIVE METABOLIC [id number] 00:00:00 Test Item Value Reference Range Interpretation Comments GLUCOSE (test code = 2217) 122 MG/DL BUN (test code = 2208) 11 MG/DL CREATININE (test code = 2214) 0.73 MG/DL eGFR AMER. (test code 111 ML/MIN/1.73 = 99344) eGFR NON- AMER. (test 95 ML/MIN/1.73 code = 41147) CALC BUN/CREAT (test code = 15 RATIO 2235) SODIUM (test code = 2231) 145 MEQ/L POTASSIUM (test code = 2228) 3.8 MEQ/L CHLORIDE (test code = 2215) 109 MEQ/L CARBON DIOXIDE (test code = 26 MEQ/L 220) CALCIUM (test code = 2209) 9.5 MG/DL PROTEIN, TOTAL (test code = 6.9 G/DL 2228) ALBUMIN (test code = 2201) 4.0 G/DL CALC GLOBULIN (test code = 2.9 G/DL 2240) CALC A/G RATIO (test code = 1.4 RATIO 2234) BILIRUBIN, TOTAL (test code = 0.2 MG/DL 2206) ALKALINE PHOSPHATASE (test 87 U/L code = 2204) AST (test code = 2218) 42 U/L ALT (test code = 2219) 57 U/L COMPREHENSIVE METABOLIC [id number] 00:00:00 Test Item Value Reference Range Interpretation Comments GLUCOSE (test code = 2217) 122 MG/DL BUN (test code = 2208) 11 MG/DL CREATININE (test code = 2214) 0.73 MG/DL eGFR AMER. (test code 111 ML/MIN/1.73 = 05816) eGFR NON- AMER. (test 95 ML/MIN/1.73 code = 70012) CALC BUN/CREAT (test code = 15 RATIO 2235) SODIUM (test code = 2231) 145 MEQ/L POTASSIUM (test code = 2228) 3.8 MEQ/L CHLORIDE (test code = 2215) 109 MEQ/L CARBON DIOXIDE (test code = 26 MEQ/L 2206) CALCIUM (test code = 2209) 9.5 MG/DL PROTEIN, TOTAL (test code = 6.9 G/DL 222) ALBUMIN (test code = 2201) 4.0 G/DL CALC GLOBULIN (test code = 2.9 G/DL 2240) CALC A/G RATIO (test code = 1.4 RATIO 2234) BILIRUBIN, TOTAL (test code = 0.2 MG/DL 2207) ALKALINE PHOSPHATASE (test 87 U/L code = 2204) AST (test code = 2218) 42 U/L ALT (test code = 2219) 57 U/L COMPREHENSIVE METABOLIC [id number] 00:00:00 Test Item Value Reference Range Interpretation Comments GLUCOSE (test code = 2217) 122 MG/DL BUN (test code = 2208) 11 MG/DL CREATININE (test code = 2214) 0.73 MG/DL eGFR AMER. (test code 111 ML/MIN/1.73 = 01757) eGFR NON- AMER. (test 95 ML/MIN/1.73 code = 83190) CALC BUN/CREAT (test code = 15 RATIO 2235) SODIUM (test code = 2231) 145 MEQ/L POTASSIUM (test code = 2228) 3.8 MEQ/L CHLORIDE (test code = 2215) 109 MEQ/L CARBON DIOXIDE (test code = 26 MEQ/L 2205) CALCIUM (test code = 2209) 9.5 MG/DL PROTEIN, TOTAL (test code = 6.9 G/DL 9) ALBUMIN (test code = 2201) 4.0 G/DL CALC GLOBULIN (test code = 2.9 G/DL 2240) CALC A/G RATIO (test code = 1.4 RATIO 2234) BILIRUBIN, TOTAL (test code = 0.2 MG/DL 7) ALKALINE PHOSPHATASE (test 87 U/L code = 2204) AST (test code = 2218) 42 U/L ALT (test code = 2219) 57 U/L COMPREHENSIVE METABOLIC [id number] 00:00:00 Test Item Value Reference Range Interpretation Comments GLUCOSE (test code = 2217) 122 MG/DL BUN (test code = 2208) 11 MG/DL CREATININE (test code = 2214) 0.73 MG/DL eGFR AMER. (test code 111 ML/MIN/1.73 = 35791) eGFR NON- AMER. (test 95 ML/MIN/1.73 code = 05087) CALC BUN/CREAT (test code = 15 RATIO 2235) SODIUM (test code = 2231) 145 MEQ/L POTASSIUM (test code = 2228) 3.8 MEQ/L CHLORIDE (test code = 2215) 109 MEQ/L CARBON DIOXIDE (test code = 26 MEQ/L 2205) CALCIUM (test code = 2208) 9.5 MG/DL PROTEIN, TOTAL (test code = 6.9 G/DL 2228) ALBUMIN (test code = 2200) 4.0 G/DL CALC GLOBULIN (test code = 2.9 G/DL 2239) CALC A/G RATIO (test code = 1.4 RATIO 2233) BILIRUBIN, TOTAL (test code = 0.2 MG/DL 2206) ALKALINE PHOSPHATASE (test 87 U/L code = 2203) AST (test code = 2217) 42 U/L ALT (test code = 2218) 57 U/L CBC W/AUTO [id number] 00:18:00 Test Item Value Reference Range Interpretation Comments WHITE BLOOD CELL (test code = WBC) 6.5 K/uL 3.5-11.0 N RED BLOOD CELL (test code = RBC) 4.11 M/uL 3.54-5.02 N HEMOGLOBIN (test code = HGB) 11.8 GM/DL 11.0-15.0 N HEMATOCRIT (test code = HCT) 34.8 % 37.0-47.0 L MEAN CELL VOLUME (test code = MCV) 84.7 fL 81.0-99.0 N MEAN CELL HGB (test code = MCH) 28.7 pg 27.0-31.0 N MEAN CELL HGB CONCETRATION (test 33.9 GM/DL 33.0-37.0 N code = MCHC) RED CELL DISTRIBUTION WIDTH CV 13.9 % 11.5-14.5 N (test code = RDW) PLATELET COUNT (test code = PLT) 342 K/mm3 150-400 N MEAN PLATELET VOLUME (test code = 10.1 FL 8.8-13.1 N MPV) NEUTROPHIL % (test code = NT%) 55.1 % 40.0-76.0 N LYMPHOCYTE % (test code = LY%) 39.2 % 15.0-40.0 N MIXED % (test code = MX%) 5.7 % 3.0-15.0 N NEUTROPHIL # (test code = NT#) 3.6 K/uL 1.8-7.6 N LYMPHOCYTE # (test code = LY#) 2.5 K/uL 1.0-3.8 N MIXED # (test code = MX#) 0.4 k/mm3 0.1-0.8 N COMMENTS: Code Neuro: Call with results if platelet count is less thanComment: 100,000/bn6ISVUAIMUUGM [id number] 15:21:00 Test Item Value Reference Range Interpretation Comments PROTHROMBIN TIME 22.0 SECONDS 20.0-26.0 N PATIENT (test code = PTP) INTERNATIONAL NORMAL 0.8 0.8-1.5 N Perform ed by certified RATIO (test code = alum plant operator at [place] [facility] TARGET INR BY INDICATION Francy cation INR1. Prophylax is of venous thrombos is 2.0 - 3.0 (orthoped ic surgery), Proph ylaxis of venous throm bosis (other than hig h-risk surgery), Treat ment of Deep Vein Thrombosis/Pulm onary Embolism, Preve ntion of systemic emb olism - Tissue heart va lves, Acute Myocardia l Infarction (to prevent systemic emboli sm), Valvular heart disease, Atrial Fibrillation, Bileaflet mecha nical valve in aortic position.2. Mec hanical prosthetic valv es (high risk), 2. 5 - 3.5 Presence of Lup us Anticoagulant o r Antiphospholipi d Antibodies, Pre vention of systemic emb olism - Acute Myocardia l Infarction (to prevent recurrent infar ct). TROPONIN-I [id number] 15:12:00 Test Item Value Reference Range Interpretation Comments TROPONIN-I RAPID 0.00 ng/mL 0.00-0.08 N Performed b y certified (test code = alum plant operator at [facility] TROPIRAP) Ctr Negative: < = 0.08 Positive: >= 0. 09An elevated tropon in value alone is not melgar fficient todiagnose a my ocardial infarction. Rat her, the patient sclinic al presentation (h istory, physical exam) and ECGshould be us ed in conjunction wit h troponin in thediagnosti c evaluation of s uspected myocardial infa rction. Aserial samplin g protocol is recommended to facilitate the identification of temporal changes in trop onin levels characteristic of NV. BASIC METABOLIC [id number] 15:03:00 Test Item Value Reference Range Interpretation Comments SODIUM (test code = NA/ABG) 142 MEQ/L 134-147 N POTASSIUM (test code = K/ABG) 3.1 MEQ/L 3.4-5.0 L CHLORIDE (test code = CL/ABG) 101 MEQ/L 100-108 N CREATININE ABG (test code = 0.7 mg/dL 0.6-1.0 N CREAABG) POC IONIZED CALCIUM (test code = 1.16 MMOL/L 1.12-1.32 N POCCA) POC GLUCOSE (test code = POCGLU) 264 MG/DL - CT HEAD/BRAIN W/O [id number] 00:00:00 [facility] : 1970 Sex: F Name: BIANKA VIEIRA FSED : 1970 Age/S: 50 / F [address] [employer] [address] Unit #: [id number] Loc: [place] [address] Phys: Tae Morales DO Acct: [id number] Dis Date: Status: REG ER PHONE #: Exam Date: 02/07/2021 1520 FAX #: Reason: paresthesias of face and extremities, evaluate EXAMS: CPT CODE: [id number] CT HEAD/BRAIN W/O CONT 95529 PROCEDURE INFORMATION: Exam: CT Head Without Contrast Exam date and time: 02/07/2021 3:16 PM Age: 50 years old Clinical indication: Other: Numbness and tinglin; Additional info: Paresthesias of face and extremities, evaluate for CVA TECHNIQUE: Imaging protocol: Computed tomography of the head without contrast. Radiation optimization: All CT scans at this facility use at least one of these dose optimization techniques: automated exposure control; mA and/or kV adjustment per patient size (includes targeted exams where dose is matched to clinical indication); or iterative reconstruction. Other technique: STROKE PROTOCOL was implemented. COMPARISON: No relevant priorstudies available. FINDINGS: Brain: Normal. No hemorrhage. Unremarkable white matter. No mass effect. Cerebral ventricles: No ventriculomegaly. Paranasal sinuses: Visualized sinuses are unremarkable. No fluid levels. Mastoid air cells: Visualized mastoid air cells are well aerated. Bones/joints: Unremarkable. No acute fracture. Soft tissues: Unremarkable. IMPRESSION: No acute intracranial abnormality. ASSESSMENT: ASPECTS ([place] Stroke Program Early CT Score) is 10. at 1532 Reported and signed by: Mario Hawley M.D. CC: Tae Morales DO Technologist:RT Dejan(R)(CT) CTDI: DLP: Trnscb Date/Time: 02/07/2021 ([id number] Orig Print D/T: S: 02/07/2021 (1532) PAGE 1 Signed ReportCULTURE, [id number] 00:00:00 Test Item Value Reference Range Interpretation Comments CULTURE, URINE (test SPECIMEN NUMBER: code = 85766) [id number] CULTURE, [id number] 00:00:00 Test Item Value Reference Range Interpretation Comments CULTURE, URINE (test SPECIMEN NUMBER: code = 22017) [id number] CULTURE, [id number] 00:00:00 Test Item Value Reference Range Interpretation Comments CULTURE, URINE (test SPECIMEN NUMBER: code = 02721) [id number] CULTURE, [id number] 00:00:00 Test Item Value Reference Range Interpretation Comments CULTURE, URINE (test SPECIMEN NUMBER: code = 90340) [id number] HEMOGLOBIN [id number] 00:00:00 Test Item Value Reference Range Interpretation Comments HEMOGLOBIN A1c (test code = 94356) 7.8 % HEMOGLOBIN [id number] 00:00:00 Test Item Value Reference Range Interpretation Comments HEMOGLOBIN A1c (test code = 38465) 7.8 % HEMOGLOBIN [id number] 00:00:00 Test Item Value Reference Range Interpretation Comments HEMOGLOBIN A1c (test code = 87115) 7.8 % COMPREHENSIVE METABOLIC [id number] 00:00:00 Test Item Value Reference Range Interpretation Comments GLUCOSE (test code = 2217) 139 MG/DL BUN (test code = 2208) 20 MG/DL CREATININE (test code = 2214) 0.76 MG/DL eGFR AMER. (test code 105 ML/MIN/1.73 = 71698) eGFR NON- AMER. (test 91 ML/MIN/1.73 code = 75687) CALC BUN/CREAT (test code = 26 RATIO 2235) SODIUM (test code = 2231) 145 MEQ/L POTASSIUM (test code = 2228) 4.0 MEQ/L CHLORIDE (test code = 2215) 104 MEQ/L CARBON DIOXIDE (test code = 30 MEQ/L 2205) CALCIUM (test code = 2209) 9.8 MG/DL PROTEIN, TOTAL (test code = 7.1 G/DL 2228) ALBUMIN (test code = 2201) 4.3 G/DL CALC GLOBULIN (test code = 2.8 G/DL 2239) CALC A/G RATIO (test code = 1.5 RATIO 2234) BILIRUBIN, TOTAL (test code = <0.2 MG/DL 2206) ALKALINE PHOSPHATASE (test 107 U/L code = 2204) AST (test code = 2218) 21 U/L ALT (test code = 2219) 44 U/L COMPREHENSIVE METABOLIC [id number] 00:00:00 Test Item Value Reference Range Interpretation Comments GLUCOSE (test code = 2217) 139 MG/DL BUN (test code = 2208) 20 MG/DL CREATININE (test code = 2214) 0.76 MG/DL eGFR AMER. (test code 105 ML/MIN/1.73 = 31606) eGFR NON- AMER. (test 91 ML/MIN/1.73 code = 76725) CALC BUN/CREAT (test code = 26 RATIO 2235) SODIUM (test code = 2231) 145 MEQ/L POTASSIUM (test code = 2228) 4.0 MEQ/L CHLORIDE (test code = 2215) 104 MEQ/L CARBON DIOXIDE (test code = 30 MEQ/L 220) CALCIUM (test code = 2209) 9.8 MG/DL PROTEIN, TOTAL (test code = 7.1 G/DL 2228) ALBUMIN (test code = 2201) 4.3 G/DL CALC GLOBULIN (test code = 2.8 G/DL 0) CALC A/G RATIO (test code = 1.5 RATIO 2234) BILIRUBIN, TOTAL (test code = <0.2 MG/DL 2206) ALKALINE PHOSPHATASE (test 107 U/L code = 2204) AST (test code = 2218) 21 U/L ALT (test code = 2219) 44 U/L LIPID [id number] 00:00:00 Test Item Value Reference Range Interpretation Comments CHOLESTEROL (test code = 2210) 174 MG/DL TRIGLYCERIDES (test code = 2232) 92 MG/DL HDL CHOLESTEROL (test code = 2220) 59 MG/DL CALC LDL CHOL (test code = 2237) 96 MG/DL RISK RATIO LDL/HDL (test code = 1.63 RATIO 2238) LIPID [id number] 00:00:00 Test Item Value Reference Range Interpretation Comments CHOLESTEROL (test code = 2210) 174 MG/DL TRIGLYCERIDES (test code = 2232) 92 MG/DL HDL CHOLESTEROL (test code = 2220) 59 MG/DL CALC LDL CHOL (test code = 2237) 96 MG/DL RISK RATIO LDL/HDL (test code = 1.63 RATIO 2238) CBC W/AUTO [id number] 00:00:00 Test Item Value Reference Range Interpretation Comments WBC (test code = 1001) 11.0 K/UL RBC (test code = 1002) 4.29 M/UL HEMOGLOBIN (test code = 1003) 11.8 G/DL HEMATOCRIT (test code = 1004) 35.7 % MCV (test code = 1005) 83.2 fL MCH (test code = 1006) 27.5 PG MCHC (test code = 1007) 33.1 G/DL RDW (test code = 1038) 14.3 % NEUTROPHILS (test code = 1008) 58.9 % LYMPHOCYTES (test code = 1010) 33.2 % MONOCYTES (test code = 1011) 6.6 % EOSINOPHILS (test code = 1012) 0.3 % BASOPHILS (test code = 1013) 0.4 % IMMATURE GRANULOCYTES (test 0.6 % code = 1036) NUCLEATED RBCS (test code = 0.0 /100WBC'S 1065) PLATELET COUNT (test code = 392 K/UL 1015) ABSOLUTE NEUTROPHILS (test code 6.49 K/UL = 1066) ABSOLUTE LYMPHOCYTES (test code 3.66 K/UL = 1067) ABSOLUTE MONOCYTES (test code = 0.73 K/UL 1068) ABSOLUTE EOSINOPHILS (test code 0.03 K/UL = 1040) ABSOLUTE BASOPHILS (test code = 0.04 K/UL 1069) ABS IMMATURE GRANULOCYTES (test 0.07 K/UL code = 1020) ABS NUCLEATED RBCS (test code = 0.00 K/UL 80639) CBC W/AUTO [id number] 00:00:00 Test Item Value Reference Range Interpretation Comments WBC (test code = 1001) 11.0 K/UL RBC (test code = 1002) 4.29 M/UL HEMOGLOBIN (test code = 1003) 11.8 G/DL HEMATOCRIT (test code = 1004) 35.7 % MCV (test code = 1005) 83.2 fL MCH (test code = 1006) 27.5 PG MCHC (test code = 1007) 33.1 G/DL RDW (test code = 1038) 14.3 % NEUTROPHILS (test code = 1008) 58.9 % LYMPHOCYTES (test code = 1010) 33.2 % MONOCYTES (test code = 1011) 6.6 % EOSINOPHILS (test code = 1012) 0.3 % BASOPHILS (test code = 1013) 0.4 % IMMATURE GRANULOCYTES (test 0.6 % code = 1036) NUCLEATED RBCS (test code = 0.0 /100WBC'S 1065) PLATELET COUNT (test code = 392 K/UL 1015) ABSOLUTE NEUTROPHILS (test code 6.49 K/UL = 1066) ABSOLUTE LYMPHOCYTES (test code 3.66 K/UL = 1067) ABSOLUTE MONOCYTES (test code = 0.73 K/UL 1068) ABSOLUTE EOSINOPHILS (test code 0.03 K/UL = 1040) ABSOLUTE BASOPHILS (test code = 0.04 K/UL 1069) ABS IMMATURE GRANULOCYTES (test 0.07 K/UL code = 1020) ABS NUCLEATED RBCS (test code = 0.00 K/UL 13844) CBC W/AUTO [id number] 00:00:00 Test Item Value Reference Range Interpretation Comments WBC (test code = 1001) 11.0 K/UL RBC (test code = 1002) 4.29 M/UL HEMOGLOBIN (test code = 1003) 11.8 G/DL HEMATOCRIT (test code = 1004) 35.7 % MCV (test code = 1005) 83.2 fL MCH (test code = 1006) 27.5 PG MCHC (test code = 1007) 33.1 G/DL RDW (test code = 1038) 14.3 % NEUTROPHILS (test code = 1008) 58.9 % LYMPHOCYTES (test code = 1010) 33.2 % MONOCYTES (test code = 1011) 6.6 % EOSINOPHILS (test code = 1012) 0.3 % BASOPHILS (test code = 1013) 0.4 % IMMATURE GRANULOCYTES (test 0.6 % code = 1036) NUCLEATED RBCS (test code = 0.0 /100WBC'S 1065) PLATELET COUNT (test code = 392 K/UL 1015) ABSOLUTE NEUTROPHILS (test code 6.49 K/UL = 1066) ABSOLUTE LYMPHOCYTES (test code 3.66 K/UL = 1067) ABSOLUTE MONOCYTES (test code = 0.73 K/UL 1068) ABSOLUTE EOSINOPHILS (test code 0.03 K/UL = 1040) ABSOLUTE BASOPHILS (test code = 0.04 K/UL 1069) ABS IMMATURE GRANULOCYTES (test 0.07 K/UL code = 1020) ABS NUCLEATED RBCS (test code = 0.00 K/UL 79738) MICROALBUMIN/CREATININE, RANDOM AND [id number] 00:00:00 Test Item Value Reference Range Interpretation Comments CREATININE, URINE, CONC. (test 159.2 MG/DL code = 2072) ALBUMIN, URINE, RANDOM (test code 11.0 MG/DL = 63138) CALC ALBUMIN/CREAT, RND (test 69 MG/G code = 44009) MICROALBUMIN/CREATININE, RANDOM AND [id number] 00:00:00 Test Item Value Reference Range Interpretation Comments CREATININE, URINE, CONC. (test 159.2 MG/DL code = 2072) ALBUMIN, URINE, RANDOM (test code 11.0 MG/DL = 49225) CALC ALBUMIN/CREAT, RND (test 69 MG/G code = 49007) HEMOGLOBIN [id number] 00:00:00 Test Item Value Reference Range Interpretation Comments HEMOGLOBIN A1c (test code = 51030) 7.8 % HEMOGLOBIN [id number] 00:00:00 Test Item Value Reference Range Interpretation Comments HEMOGLOBIN A1c (test code = 53617) 7.8 % HEMOGLOBIN [id number] 00:00:00 Test Item Value Reference Range Interpretation Comments HEMOGLOBIN A1c (test code = 18764) 7.8 % COMPREHENSIVE METABOLIC [id number] 00:00:00 Test Item Value Reference Range Interpretation Comments GLUCOSE (test code = 2217) 139 MG/DL BUN (test code = 2208) 20 MG/DL CREATININE (test code = 2214) 0.76 MG/DL eGFR AMER. (test code 105 ML/MIN/1.73 = 47373) eGFR NON- AMER. (test 91 ML/MIN/1.73 code = 34598) CALC BUN/CREAT (test code = 26 RATIO 2235) SODIUM (test code = 2231) 145 MEQ/L POTASSIUM (test code = 2228) 4.0 MEQ/L CHLORIDE (test code = 2215) 104 MEQ/L CARBON DIOXIDE (test code = 30 MEQ/L 2206) CALCIUM (test code = 2209) 9.8 MG/DL PROTEIN, TOTAL (test code = 7.1 G/DL 2228) ALBUMIN (test code = 2201) 4.3 G/DL CALC GLOBULIN (test code = 2.8 G/DL 0) CALC A/G RATIO (test code = 1.5 RATIO 4) BILIRUBIN, TOTAL (test code = <0.2 MG/DL 2206) ALKALINE PHOSPHATASE (test 107 U/L code = 2204) AST (test code = 2218) 21 U/L ALT (test code = 2219) 44 U/L COMPREHENSIVE METABOLIC [id number] 00:00:00 Test Item Value Reference Range Interpretation Comments GLUCOSE (test code = 2217) 139 MG/DL BUN (test code = 2208) 20 MG/DL CREATININE (test code = 2214) 0.76 MG/DL eGFR AMER. (test code 105 ML/MIN/1.73 = 15535) eGFR NON- AMER. (test 91 ML/MIN/1.73 code = 24507) CALC BUN/CREAT (test code = 26 RATIO 2235) SODIUM (test code = 2231) 145 MEQ/L POTASSIUM (test code = 2228) 4.0 MEQ/L CHLORIDE (test code = 2215) 104 MEQ/L CARBON DIOXIDE (test code = 30 MEQ/L 2206) CALCIUM (test code = 2209) 9.8 MG/DL PROTEIN, TOTAL (test code = 7.1 G/DL 2228) ALBUMIN (test code = 2201) 4.3 G/DL CALC GLOBULIN (test code = 2.8 G/DL 2239) CALC A/G RATIO (test code = 1.5 RATIO 2234) BILIRUBIN, TOTAL (test code = <0.2 MG/DL 2206) ALKALINE PHOSPHATASE (test 107 U/L code = 2204) AST (test code = 2218) 21 U/L ALT (test code = 2219) 44 U/L LIPID [id number] 00:00:00 Test Item Value Reference Range Interpretation Comments CHOLESTEROL (test code = 2210) 174 MG/DL TRIGLYCERIDES (test code = 2232) 92 MG/DL HDL CHOLESTEROL (test code = 2220) 59 MG/DL CALC LDL CHOL (test code = 2237) 96 MG/DL RISK RATIO LDL/HDL (test code = 1.63 RATIO 2238) LIPID [id number] 00:00:00 Test Item Value Reference Range Interpretation Comments CHOLESTEROL (test code = 2210) 174 MG/DL TRIGLYCERIDES (test code = 2232) 92 MG/DL HDL CHOLESTEROL (test code = 2220) 59 MG/DL CALC LDL CHOL (test code = 2237) 96 MG/DL RISK RATIO LDL/HDL (test code = 1.63 RATIO 2238) CBC W/AUTO [id number] 00:00:00 Test Item Value Reference Range Interpretation Comments WBC (test code = 1001) 11.0 K/UL RBC (test code = 1002) 4.29 M/UL HEMOGLOBIN (test code = 1003) 11.8 G/DL HEMATOCRIT (test code = 1004) 35.7 % MCV (test code = 1005) 83.2 fL MCH (test code = 1006) 27.5 PG MCHC (test code = 1007) 33.1 G/DL RDW (test code = 1038) 14.3 % NEUTROPHILS (test code = 1008) 58.9 % LYMPHOCYTES (test code = 1010) 33.2 % MONOCYTES (test code = 1011) 6.6 % EOSINOPHILS (test code = 1012) 0.3 % BASOPHILS (test code = 1013) 0.4 % IMMATURE GRANULOCYTES (test 0.6 % code = 1036) NUCLEATED RBCS (test code = 0.0 /100WBC'S 1065) PLATELET COUNT (test code = 392 K/UL 1015) ABSOLUTE NEUTROPHILS (test code 6.49 K/UL = 1066) ABSOLUTE LYMPHOCYTES (test code 3.66 K/UL = 1067) ABSOLUTE MONOCYTES (test code = 0.73 K/UL 1068) ABSOLUTE EOSINOPHILS (test code 0.03 K/UL = 1040) ABSOLUTE BASOPHILS (test code = 0.04 K/UL 1069) ABS IMMATURE GRANULOCYTES (test 0.07 K/UL code = 1020) ABS NUCLEATED RBCS (test code = 0.00 K/UL 63292) CBC W/AUTO [id number] 00:00:00 Test Item Value Reference Range Interpretation Comments WBC (test code = 1001) 11.0 K/UL RBC (test code = 1002) 4.29 M/UL HEMOGLOBIN (test code = 1003) 11.8 G/DL HEMATOCRIT (test code = 1004) 35.7 % MCV (test code = 1005) 83.2 fL MCH (test code = 1006) 27.5 PG MCHC (test code = 1007) 33.1 G/DL RDW (test code = 1038) 14.3 % NEUTROPHILS (test code = 1008) 58.9 % LYMPHOCYTES (test code = 1010) 33.2 % MONOCYTES (test code = 1011) 6.6 % EOSINOPHILS (test code = 1012) 0.3 % BASOPHILS (test code = 1013) 0.4 % IMMATURE GRANULOCYTES (test 0.6 % code = 1036) NUCLEATED RBCS (test code = 0.0 /100WBC'S 1065) PLATELET COUNT (test code = 392 K/UL 1015) ABSOLUTE NEUTROPHILS (test code 6.49 K/UL = 1066) ABSOLUTE LYMPHOCYTES (test code 3.66 K/UL = 1067) ABSOLUTE MONOCYTES (test code = 0.73 K/UL 1068) ABSOLUTE EOSINOPHILS (test code 0.03 K/UL = 1040) ABSOLUTE BASOPHILS (test code = 0.04 K/UL 1069) ABS IMMATURE GRANULOCYTES (test 0.07 K/UL code = 1020) ABS NUCLEATED RBCS (test code = 0.00 K/UL 91673) CBC W/AUTO [id number] 00:00:00 Test Item Value Reference Range Interpretation Comments WBC (test code = 1001) 11.0 K/UL RBC (test code = 1002) 4.29 M/UL HEMOGLOBIN (test code = 1003) 11.8 G/DL HEMATOCRIT (test code = 1004) 35.7 % MCV (test code = 1005) 83.2 fL MCH (test code = 1006) 27.5 PG MCHC (test code = 1007) 33.1 G/DL RDW (test code = 1038) 14.3 % NEUTROPHILS (test code = 1008) 58.9 % LYMPHOCYTES (test code = 1010) 33.2 % MONOCYTES (test code = 1011) 6.6 % EOSINOPHILS (test code = 1012) 0.3 % BASOPHILS (test code = 1013) 0.4 % IMMATURE GRANULOCYTES (test 0.6 % code = 1036) NUCLEATED RBCS (test code = 0.0 /100WBC'S 1065) PLATELET COUNT (test code = 392 K/UL 1015) ABSOLUTE NEUTROPHILS (test code 6.49 K/UL = 1066) ABSOLUTE LYMPHOCYTES (test code 3.66 K/UL = 1067) ABSOLUTE MONOCYTES (test code = 0.73 K/UL 1068) ABSOLUTE EOSINOPHILS (test code 0.03 K/UL = 1040) ABSOLUTE BASOPHILS (test code = 0.04 K/UL 1069) ABS IMMATURE GRANULOCYTES (test 0.07 K/UL code = 1020) ABS NUCLEATED RBCS (test code = 0.00 K/UL 72098) MICROALBUMIN/CREATININE, RANDOM AND [id number] 00:00:00 Test Item Value Reference Range Interpretation Comments CREATININE, URINE, CONC. (test 159.2 MG/DL code = 2072) ALBUMIN, URINE, RANDOM (test code 11.0 MG/DL = 28556) CALC ALBUMIN/CREAT, RND (test 69 MG/G code = 90816) MICROALBUMIN/CREATININE, RANDOM AND [id number] 00:00:00 Test Item Value Reference Range Interpretation Comments CREATININE, URINE, CONC. (test 159.2 MG/DL code = 2072) ALBUMIN, URINE, RANDOM (test code 11.0 MG/DL = 67948) CALC ALBUMIN/CREAT, RND (test 69 MG/G code = 34664) POCT HEMOGLOBIN A1C [id number] 16:55:00 Test Item Value Reference Range Interpretation Comments POCT HBA1C (test code = 4548-4) 7.5 % 4-6 A Lab Interpretation (test code = Abnormal 20960-1) [facility] [id number] 16:55:00 Test Item Value Reference Range Interpretation Comments POCT HBA1C (test code = 4548-4) 7.5 % 4-6 A Lab Interpretation (test code = Abnormal 32952-7) [facility] YISSEL CAD [id number] 15:42:54 - DIAG MAMM BILATERAL YISSEL CAD DIGITALBILATERAL DIGITAL DIAGNOSTIC MAMMOGRAM 3D/2D WITH CAD: 11/17/2019CLINICAL: Followup to previous exam. Digital breast tomosynthesis was performed in addition to routine CC and MLO views. Current mammographic images were evaluated by either a [employer]local M-Vu or a [employer] ImageChecker CAD (computer aided detection system). Comparison is made to exams dated 08/02/2018 mammogram, 07/30/2017 mammogram, and 06/24/2016 mammogram - [facility] There are scatteredfibroglandular tissues in both breasts. There are post operative findings and biopsy clips in the left breast. No suspicious mass, architectural distortion, malignant type calcification, or lymph node abnormality detected. INCOMPLETE: ADDITIONAL IMAGING EVALUATION NEEDEDBilateral ultrasound pending for additional evaluation. - BREAST ULTRASOUND BILATERALULTRASOUND OF BOTH BREASTS AND BOTH AXILLA: 2019Comparison is made to exams dated 08/02/2018 mammogram, 07/30/2017 mammogram, and 06/24/2016 mammogram - [facility]-. Real-time ultrasound of both breasts and both axilla and clinical breast exam were performed. No abnormalities were seen sonographically in either breast or either axilla. Clinical breast exam was unremarkable.IMPRESSION: NEGATIVE There is no sonographic evidence of malignancy. Patient has been informed that she should have screening mammogram and supplemental ultrasound in 1 year.Kacie Garcia M.D. dm/:11/17/2019 15:42:54 Professor Of Poultry Science: Elsie Mathew , [facility]-FWletter sent: BIRADS 1-2 Combo FU Letter Mammogram BI-RADS: 0 Incomplete: Additional Imaging Evaluation Needed Ultrasound BI-RADS: 1 Negative BREAST ULTRASOUND [id number] 15:42:54 - DIAG MAMM BILATERAL YISSEL CAD DIGITALBILATERAL DIGITAL DIAGNOSTIC MAMMOGRAM 3D/2D WITH CAD: 11/17/2019CLINICAL: Followup to previous exam. Digital breast tomosynthesis was performed in addition to routine CC and MLO views. Current mammographic images were evaluated by either a [employer]local M-Vu or a [employer] D[employer] eGiftercker CAD (computer aided detection system). Comparison is made to exams dated 08/02/2018 mammogram, 07/30/2017 mammogram, and 06/24/2016 mammogram - [facility]-. There are scatteredfibroglandular tissues in both breasts. There are post operative findings and biopsy clips in the left breast. No suspicious mass, architectural distortion, malignant type calcification, or lymph node abnormality detected. INCOMPLETE: ADDITIONAL IMAGING EVALUATION NEEDEDBilateral ultrasound pending for additional evaluation. - BREAST ULTRASOUND BILATERALULTRASOUND OF BOTH BREASTS AND BOTH AXILLA: 11/17/2019Comparison is made to exams dated 08/02/2018 mammogram, 07/30/2017 mammogram, and 06/24/2016 mammogram - [facility]-. Real- time ultrasound of both breasts and both axilla and clinical breast exam were performed. No abnormalities were seen sonographically in either breast or either axilla. Clinical breast exam was unremarkable.IMPRESSION: NEGATIVE There is no sonographic evidence of malignancy. Patient has been informed that she should have screening mammogram and supplemental ultrasound in 1 year.Kacie Garcia M.D. dm/:11/17/2019 15:42:54 Professor Of Poultry Science: Elsie Mathew , [facility]-letter sent: BIRADS 1-2 Combo FU Letter Mammogram BI-RADS: 0 Incomplete: Additional Imaging Evaluation Needed Ultrasound BI-RADS: 1 Negative BREAST ULTRASOUND [id number] 15:30:02 - DIAG MAMM BILATERAL YISSEL CAD DIGITALBILATERAL DIGITAL DIAGNOSTIC MAMMOGRAM 3D/2D WITH CAD: 08/02/2018CLINICAL: Previous breast cancer. Digital breast tomosynthesis was performed in addition to routine CC and MLO views. Current mammographic images were evaluated by either a [employer] M-Vu or a [employer] ImageChecker CAD (computer aided detection system). Comparison is made to exams dated 07/30/2017 mammogram, 06/24/2016 mammogram, and [facility] There are scattered fibroglandular tissues in both breasts. There are post operative findings and biopsy clips in the leftbreast. No suspicious mass, architectural distortion, malignant type calcification, or lymph node abnormality detected. INCOMPLETE ASSESSMENT: ADDITIONAL IMAGING EVALUATION RECOMMENDEDUltrasound pending for additional evaluation. Resume annual screening mammography in one year. - BREAST ULTRASOUND BILATERALULTRASOUND OF BOTH BREASTS AND BOTH AXILLA: 08/02/2018Comparison is made to exams dated 07/30/2017 mammogram, 06/24/2016 mammogram, and [facility] Real-time ultr asound of both breasts and both axilla and clinical breast exam was performed. No abnormalities wereseen sonographically in either breast or either axilla. Clinical breast exam was unremarkable. IMPRESSION: NEGATIVE There is no sonographic evidence of malignancy. Patient has been informed that she should have screening mammogram and supplemental ultrasound in 1 year.Kacie Garcia M.D. dm/:08/02/2018 15:30:02 Attending Technologist: Galina Vela , [facility]aging Technologist: Lissy FLORES, [facility]ITALletter sent: BIRADS 1-2 Combo FU Letter Mammogram BI-RADS: 0Indeterminate Ultrasound BI-RADS: 1 NegativeDIAG MAMM BILATERAL YISSEL CAD [id number] 15:30:02 - DIAG MAMM BILATERAL YISSEL CAD DIGITALBILATERAL DIGITAL DIAGNOSTIC MAMMOGRAM 3D/2D WITH CAD: 08/02/2018CLINICAL: Previous breast cancer. Digital breast tomosynthesis was performed in addition to routine CC and MLO views. Current mammographic images were evaluated by either a [employer] M-Vu or a [employer] ImageChecker CAD (computer aided detection system). Comparison is made to exams dated 07/30/2017 mammogram, 06/24/2016 mammogram, and [facility]. There are scattered fibroglandular tissues in both breasts. There are post operative findings and biopsy clips in the leftbreast. No suspicious mass, architectural distortion, malignant type calcification, or lymph node abnormality detected. INCOMPLETE ASSESSMENT: ADDITIONAL IMAGING EVALUATION RECOMMENDEDUltrasound pending for additional evaluation. Resume annual screening mammography in one year. - BREAST ULTRASOUND BILA TERALULTRASOUND OF BOTH BREASTS AND BOTH AXILLA: 08/02/2018Comparison is made to exams dated 07/30/2017 mammogram, 06/24/2016 mammogram, and 03/25/2015 mammogram - [facility]-. Real-time ultrasound of both breasts and both axilla and clinical breast exam was performed. No abnormalities wereseen sonographically in either breast or either axilla. Clinical breast exam was unremarkable. IMPRESSION: NEGATIVE There is no sonographic evidence of malignancy. Patient has been informed that she should have screening mammogram and supplemental ultrasound in 1 year.Kacie Garcia M.D. dm/:08/02/2018 15:30:02 Attending Technologist: Galina Vela , [facility]-Imaging Technologist: Lissy FLORES, [facility]-FWletter sent: BIRADS 1-2 Combo FU Letter Mammogram BI-RADS: 0Indeterminate Ultrasound BI-RADS: 1 Negative
--- NOTE | 2022-05-27 21:37 | RAD REPORT ---
EXAM DESCRIPTION: US - Abdomen Exam Limited - 05/27/2022 9:27 pm CLINICAL HISTORY: ABD PAIN COMPARISON: No comparisons FINDINGS: The gallbladder demonstrates multiple small gallstones. No pericholecystic fluid or gallbl adder wall thickening. The common bile duct is normal measuring 4 mm. The liver demonstrates no findings of intrahepatic biliary dilatation. IMPRESSION: Cholelithiasis.
[2022-05-27 21:59] LABS: Urine Blood Negative (Negative); Urine Glucose Negative (Negative); Urine Protein Negative (Negative); Urine Specific Gravity 1.015 (1.005-1.030); Urine pH 6.5 (5.0-7.0)
[2022-05-27 22:06] LABS: Absolute Lymphocytes (CBC) 3.9 K/uL (0.7-4.9); Hematocrit 35.2 % (36.0-45.0); Lymphocytes % 42.5 % (15.3-44.8); MCV 86.3 fL (80-100); MPV 7.9 fL (7.6-11.3); RBC Red Blood Cell Count 4.07 M/uL (3.86-4.86)
[2022-05-27] MEDS ORDERED: NA CHLORIDE 0.9% 1,000 ML ONE (22:12)
[2022-05-27] MEDS ORDERED: MORPHINE 4 MG/ML SYR ONE (22:12)
[2022-05-27] MEDS ORDERED: ONDANSETRON 4 MG/2 ML VIAL ONE (22:12)
[2022-05-27] MEDS ORDERED: KETOROLAC 30 MG/ML INJ ONE (22:12)
[2022-05-27 22:21] LABS: Albumin 3.9 g/dL (3.4-5.0); Bilirubin Total 0.3 mg/dL (0.2-1.0); Potassium 3.5 mmol/L (3.5-5.1); Protein, Total 8.1 g/dL (6.4-8.2)
[2022-05-27 22:22] LABS: Urine Specific Gravity/Preg 1.015 (1.005-1.030)
[2022-05-27 22:28] LABS: Specific Gravity 1.012 (1.005-1.030); Transitional Epithelial <5 /HPF (None Seen); Urine Bacteria <20 /HPF (<20); Urine Bilirubin NEGATIVE (Negative); Urine Blood Negative (Negative); Urine Clarity Clear (Clear); Urine Color Light-Yellow (Yellow); Urine Glucose NEGATIVE (Negative); Urine Protein NEGATIVE (Negative); Urine RBC <5 /HPF (None Seen); Urine Urobilinogen Normal (Normal)
--- NOTE | 2022-05-27 23:50 | EDPHYS ---
Physician Documentation [facility] Name: Bianka Montelongo Age: 52 yrs Sex: Female : 1970 Arrival Date: 05/27/2022 Time: 20:02 Bed 17 Private MD: ED Physician Leonardo Schwartz HPI: 05/27 20:52 This 52 yrs old Female presents to ER via Ambulatory with complaints of sp4 Abdominal Pain. 20:52 52-year-old female presents with right upper quadrant abdominal pain starting sp4 today associated with nausea without vomiting, patient has language barrier she is Danish-speaking only, history obtained with rural carrier, patient states that there is moderate to severe constant pain in the right upper quadrant, no history of abdominal surgery, history of 1 in the past. Patient has denied fever. 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 - Social history:: Smoking status: Patient denies any tobacco usage or history of. - Family history:: not pertinent. ROS: 20:52 Constitutional: Negative for fever, chills, and weight loss, Eyes: Negative for injury, sp4 pain, redness, and discharge, ENT: Negative for injury, pain, and discharge, Neck: Negative for injury, pain, and swelling, Cardiovascular: Negative for chest pain, palpitations, and edema, Respiratory: Negative for shortness of breath, cough, wheezing, and pleuritic chest pain, Abdomen/GI: Negative for vomiting, diarrhea, and constipation, positive for abdominal pain and positive for nausea positive for right upper quadrant pain Back: Negative for injury and pain, : Negative for injury, bleeding, discharge, and swelling, MS/Extremity: Negative for injury and deformity, Skin: Negative for injury, rash, and discoloration, Neuro: Negative for headache, weakness, numbness, tingling, and seizure, Psych: Negative for depression, anxiety, Allergy/Immunology: Negative for hives, rash, and allergies, Endocrine: Negative for neck swelling, polydipsia, polyuria, polyphagia, and marked weight changes, Hematologic/Lymphatic: Negative for swollen nodes, abnormal bleeding, and unusual bruising. Exam: 20:52 Constitutional: This is a well developed, well nourished patient who is awake, alert, sp4 and in no acute distress. Head/Face: Normocephalic, atraumatic. Eyes: Pupils equal round and reactive to light, extra-ocular motions intact. Lids and lashes normal. Conjunctiva and sclera are not injected. Cornea within normal limits. Periorbital areas with no swelling, redness, or edema. ENT: Nares patent. No nasal discharge, no septal abnormalities noted. Tympanic membranes are normal and external auditory canals are clear. Oropharynx with no redness, swelling, or masses, exudates, or evidence of obstruction, uvula midline. Mucous membranes moist. Normal dentition Neck: Trachea midline, no thyromegaly or masses palpated, and no cervical lymphadenopathy. Supple, full range of motion without nuchal rigidity, or vertebral point tenderness. No Meningismus. Chest/axilla: Normal chest wall appearance and motion. Nontender with no deformity. No lesions are appreciated. Cardiovascular: Regular rate and rhythm with a normal S1 and S2. No gallops, murmurs, or rubs. Normal PMI, no JVD. No pulse deficits. Respiratory: Lungs have equal breath sounds bilaterally, clear to auscultation and percussion. No rales, rhonchi or wheezes noted. No increased work of breathing, no retractions or nasal flaring. Abdomen/GI: Soft, with normal bowel sounds. No distension or tympany. No guarding or rebound. No evidence of tenderness throughout. Right upper quadrant tenderness without rebound Back: No spinal tenderness. No costovertebral tenderness. Skin: Warm, dry with normal turgor. Normal color with no rashes, no lesions, and no evidence of cellulitis. MS/ Extremity: Pulses equal, no cyanosis. Neurovascular intact. Full, normal range of motion. Neuro: Awake and alert, GCS 15, oriented to person, place, time, and situation. Cranial nerves II-XII grossly intact. Motor strength 5/5 in all extremities. Sensory grossly intact. Psych: Awake, alert, with orientation to person, place and time. Behavior, mood, and affect are within normal limits. Vital Signs: 20:46 BP 120 / 79; Pulse 76; Resp 18; Temp 97.9; Pulse Ox 99% ; Weight 70.31 kg; Height 5 ft. mb9 1 in. ; Pain 10/10; 20:46 Body Mass Index 29.29 (70.31 kg, 154.94 cm) mb9 20:46 Pain Scale: Adult mb9 MDM: 21:00 Patient medically screened. sp4 22:36 Differential Diagnosis Abdominal pain, acute cholecystitis, acute pancreatitis, acute sp4 appendicitis, acute gastroenteritis. Data reviewed: vital signs, nurses notes, lab test result(s), CBC, electrolytes, hepatic panel, urinalysis, radiologic studies, CT scan, ultrasound. 23:46 ED course: CT revealed cholelithiasis without signs of acute cholecystitis, ultrasound sp4 as well revealed cholelithiasis without signs of acute cholecystitis, patient's pain has improved after medication. Patient was advised to schedule visit with general surgeon and we will refer patient to Dr. Murillo for evaluation in office for cholecystectomy. Patient also advised to consume clear liquid diet for the next 24 hours and after that a bland non fatty diet. 05/27 20:51 Order name: CBC with Diff; Complete Time: 22:37 sp4 05/27 20:51 Order name: CMP; Complete Time: 22:37 sp4 05/27 20:51 Order name: Lipase; Complete Time: 22:37 sp4 05/27 20:51 Order name: CT Abd/Pelvis - IV Contrast Only sp4 05/27 20:51 Order name: US Abdomen Limited: RUQ pain, RUQ ultrasound for cholecystitis ; Complete sp4 Time: 22:37 05/27 20:51 Order name: IV Saline Lock; Complete Time: 21:56 sp4 05/27 20:51 Order name: Labs collected and sent; Complete Time: 21:56 sp4 05/27 20:52 Order name: Urinalysis W/Microscopic; Complete Time: 22:37 sp4 05/27 20:52 Order name: Urine Test (obtain specimen); Complete Time: 22:02 sp4 05/27 22:10 Order name: Urine --Ancillary (enter results); Complete Time: 22:37 rv1 05/27 20:52 Order name: COVID-19 SARS RT PCR; Complete Time: 23:35 sp4 05/27 21:59 Order name: Urine Dipstick-Ancillary; Complete Time: 22:37 EDMS Administered Medications: 23:08 Drug: NS 0.9% IV 1000 ml Route: IV; Rate: 1 bolus; Site: right antecubital; jb4 23:08 Drug: Ondansetron IVP 4 mg Route: IVP; Site: right antecubital; jb4 23:08 Drug: morphine IVP or IV 4 mg Route: IVP; Infused Over: 4 mins; Site: right antecubital;jb4 23:08 Drug: Ketorolac IVP 30 mg Route: IVP; Site: right antecubital; jb4 Disposition Summary: 05/27/22 23:49 Discharge Ordered Location: Home sp4 Problem: new sp4 Symptoms: have improved sp4 Condition: Stable sp4 Diagnosis - Other cholelithiasis without obstruction sp4 - Cholelithiasis without acute cholecystitis, biliary colic, right upper quadrant sp4 abdominal pain with nausea, nausea without vomiting Followup: sp4 - With: Gomez Murillo MD - When: 1 - 2 days - Reason: Recheck today's complaints Forms: - Medication Reconciliation Form sp4 - Thank You Letter sp4 - Antibiotic Education sp4 - Prescription Opioid Use sp4 Signatures: Dispatcher [employer] EDIsidro Perkins RN RN jb4 Roberta Villalpando RN RN mb9 Leonardo Schwartz MD MD sp4 Corrections: (The following items were deleted from the chart) 22:02 20:52 CBC+H.LAB.BRZ ordered. EDMS EDMS 22:02 20:52 COMPREHENSIVE METABOLIC PANEL+C.LAB.BRZ ordered. EDMS EDMS 22:02 20:52 LIPASE+C.LAB.BRZ ordered. EDMS EDMS
--- NOTE | 2022-05-27 23:50 | ER ---
Nurse's Notes [facility] Name: Bianka Montelongo Age: 52 yrs Sex: Female : 1970 Arrival Date: 05/27/2022 Time: 20:02 Bed 17 Private MD: Diagnosis: Other cholelithiasis without obstruction;Cholelithiasis without acute cholecystitis, biliary colic, right upper quadrant abdominal pain with nausea, nausea without vomiting Presentation: 05/27 20:46 Chief complaint: Patient states: "my stomach started hurting really bad on the right mb9 side around 6pm and travels to my back." Pt denies N/V. Coronavirus screen: At this time, the client does not indicate any symptoms associated with coronavirus-19. Ebola Screen: No symptoms or risks identified at this time. Initial Sepsis Screen: Does the patient meet any 2 criteria? No. Patient's initial sepsis screen is negative. Does the patient have a suspected source of infection? No. Patient's initial sepsis screen is negative. Risk Assessment: Do you want to hurt yourself or someone else? Patient reports no desire to harm self or others. Onset of symptoms was May 27, 2022. 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 - Social history:: Smoking status: Patient denies any tobacco usage or history of. - Family history:: not pertinent. Vital Signs: 20:46 BP 120 / 79; Pulse 76; Resp 18; Temp 97.9; Pulse Ox 99% ; Weight 70.31 kg; Height 5 ft. mb9 1 in. ; Pain 10/10; 20:46 Body Mass Index 29.29 (70.31 kg, 154.94 cm) mb9 20:46 Pain Scale: Adult mb9 ED Course: 20:02 Patient arrived in ED. ag3 20:36 Leonardo Schwartz MD is Attending Physician. sp4 20:48 Triage completed. mb9 20:48 Arm band placed on. mb9 21:29 US Abdomen Limited: RUQ pain, RUQ ultrasound for cholecystitis In Process Unspecified. EDMS 21:56 Isidro Keating, RN is Primary Nurse. jb4 22:01 Inserted saline lock: 20 gauge in right antecubital area, using aseptic technique. 1 Blood collected. 22:02 Urinalysis W/Microscopic Sent. 1 22:02 COVID-19 SARS RT PCR Sent. 1 22:48 CT Abd/Pelvis - IV Contrast Only In Process Unspecified. EDMS 23:48 Gomez Murillo MD is Referral Physician. sp4 Administered Medications: 23:08 Drug: NS 0.9% IV 1000 ml Route: IV; Rate: 1 bolus; Site: right antecubital; jb4 23:08 Drug: Ondansetron IVP 4 mg Route: IVP; Site: right antecubital; jb4 23:08 Drug: morphine IVP or IV 4 mg Route: IVP; Infused Over: 4 mins; Site: right antecubital;jb4 23:08 Drug: Ketorolac IVP 30 mg Route: IVP; Site: right antecubital; jb4 Outcome: 23:49 Discharge ordered by . sp4 Signatures: Dispatcher [employer] EDIsidro Perkins, BRINDA PARRY jb4 Amaya French [facility] Roberta Villalpando RN RN Leonardo Cerda MD MD sp4 [place] [id number] Corrections: (The following items were deleted from the chart) 22:02 21:56 CBC+H.LAB.BRZ drawn and sent. jb4 EDMS 22:02 21:56 COMPREHENSIVE METABOLIC PANEL+C.LAB.BRZ drawn and sent. jb4 EDMS 22:02 21:56 LIPASE+C.LAB.BRZ drawn and sent. jb4 EDMS
[2022-05-28 09:29] VITALS: TEMP 97.9
[2022-05-28 09:33] VITALS: BP 137/69; O2SAT 98
--- NOTE | 2022-05-28 11:21 | RAD REPORT ---
EXAM DESCRIPTION: CT - Abdomen Pelvis W Contrast - 05/28/2022 6:23 am CLINICAL HISTORY: ABD PAIN. COMPARISON: CT of the abdomen and pelvis with contrast from October 10, 2019. TECHNIQUE: CT of the abdomen and pelvis was performed following intravenous administration of iodina lindsay contrast. Oral contrast was not administered. Axial, coronal, and sagittal soft tissue window rec onstructions were created and sent to PACS. This exam was performed according to our departmental dose-optimization program, which includes autom ated exposure control, adjustment of the mA and/or kV according to patient size and/or use of iterati ve reconstruction technique. FINDINGS: Thoracic: No significant abnormality. Hepatobiliary: No concerning hepatic lesion identified. The portal veins are patent. Possible sludge or stones in the gallbladder. No gallbladder wall thickening or surrounding inflammatory changes. Unc hanged mild prominence of the common bile duct, measuring up to 0.9 cm in diameter. No intrahepatic b iliary ductal dilatation. Pancreas: Unremarkable. Spleen: Unremarkable. Gastrointestinal: No evidence of bowel obstruction or perienteric inflammation. The appendix is hailey l. Small amount of fecal material and gas in the colon. Mild descending colonic diverticulosis. Adrenals: No abnormality identified in either adrenal gland. Renal: No concerning parenchymal abnormality in either kidney. No hydronephrosis or urolithiasis. Bladder/Reproductive: Unremarkable appearance of the urinary bladder by CT technique. The uterus is e nlarged by multiple calcified fibroids. The uterus measures 7.5 x 11.2 x 10.9 cm (AP x TV x CC). Vascular/Lymphatics: No lymphadenopathy identified by CT size criteria. Abdominal aorta is normal in caliber. Musculoskeletal: No concerning osseous lesion identified. Fluid / peritoneum: No significant free fluid. No free intraperitoneal air identified. IMPRESSION 1. No acute abnormality identified in the abdomen or pelvis by CT. 2. Possible cholelithiasis or gallbladder sludge. Unchanged mild prominence of the common bile duct , possibly age-related. Consider correlation with LFTs. 3. Fibroid uterus. Electronically signed by: Belgica Teran MD 05/27/2022 11:00 PM CDT Due to temporary technical issues with the PACS/Fluency reporting system, reports are being signed by the in house radiologists without review as a courtesy to insure prompt reporting. The interpreting radiologist is fully responsible for the content of the report.
== END 2022-05-28 00:20 | disposition home or self-care (01) ==
LOC: ER 19:54
DX: K80.80 Other cholelithiasis without obstruction (principal); R11.0 Nausea; I10 Essential (primary) hypertension; Z85.3 Personal history of malignant neoplasm of breast
CPT/HCPCS: 36415; 74177; 76705; 80053; 81001; 81003; 81025; 83690; 85025; 96374; 96375; 99284; J2405; J7030; Q9967; U0003